=== PATIENT | female | born 1970 ===

== ENCOUNTER 2019-12-17 15:35 | Outpatient (REF) | payer MEDICARE, OTHER, SELFPAY ==
[2019-12-17 16:58] LABS: Hematocrit 44.9 % (37-47); Hemoglobin 15.1 g/dl (12.0-16.0); Mean Corpuscular HGB Conc 33.6 g/dl (31.0-35.0); Mean Corpuscular Hemoglobin 30.4 pg (27.0-33.0); Mean Corpuscular Volume 90.5 fL (80-98); Mean Platelet Volume 11.2 fL (9.4-12.3); Platelet Count 392 X10*3/uL (160-400); Red Blood Count 4.96 X10*6/uL (4.20-5.50); Red Cell Distribution Width 11.5 % (11.0-16.0); White Blood Count 9.2 X10*3/uL (4.8-10.8)
[2019-12-17 17:59] LABS: Thyroid Stimulating Hormone 0.83 mIU/mL (0.32-4.0)
[2019-12-17 18:42] LABS: Alanine Aminotransferase 74 U/L (0-31); Albumin Level 4.3 g/dL (3.5-5.0); Alkaline Phosphatase 108 U/L (39-117); Anion Gap 12 (12-20); Aspartate Amino Transferase 41 U/L (5-31); Bilirubin Direct < 0.2 mg/dL (0.0-0.5); Bilirubin Total 0.5 mg/dL (0.0-1.0); Blood Urea Nitrogen 13 mg/dL (9-16); Calcium 9.5 mg/dL (8.4-10.2); Carbon Dioxide 30 mmol/L (22-29); Chloride 98 mmol/L (96-108); Estimated Glomerular Filt Rate > 60; Glucose Random 382 mg/dL (60-115); Potassium 4.6 mmol/l (3.3-5.1); Sodium 135 mmol/L (135-145); Total Protein 7.4 g/dL (6.5-8.0)
== END 2019-12-17 15:36 | disposition home or self-care (01) ==
LOC: HO.LAB 15:35
PROVIDERS: PCP Internal Medicine; Visit Provider Internal Medicine
DX: K21.9 Gastro-esophageal reflux disease without esophagitis (principal)
CPT/HCPCS: 36415; 80048; 80076; 84443; 85027

== ENCOUNTER 2020-03-26 13:00 | Outpatient (RCR) | payer MEDICARE, MEDICAID, SELFPAY | END 2020-06-29 11:01 | disposition other institution (70) | LOC: HO.OT 13:00 | PROVIDERS: PCP Internal Medicine; Visit Provider Internal Medicine | DX: M79.642 Pain in left hand (principal) | CPT/HCPCS: 97014; 97035; 97110; 97140; 97166 ==

== ENCOUNTER 2020-07-20 14:50 | Outpatient (REF) | payer MEDICARE, MEDICAID, SELFPAY ==
[2020-07-20 17:03] LABS: Hemoglobin 15.9 g/dl (12.0-16.0); Mean Corpuscular HGB Conc 33.8 g/dl (31.0-35.0); Mean Corpuscular Hemoglobin 30.2 pg (27.0-33.0); Mean Corpuscular Volume 89.2 fL (80-98); Mean Platelet Volume 11.2 fL (9.4-12.3); Platelet Count 315 X10*3/uL (160-400); Red Blood Count 5.27 X10*6/uL (4.20-5.50); Red Cell Distribution Width 11.7 % (11.0-16.0); White Blood Count 9.8 X10*3/uL (4.8-10.8)
[2020-07-20 17:14] LABS: Estimated Average Glucose 346 mg/dL; Hemoglobin A1c % 13.7 %
[2020-07-20 17:32] LABS: TSH reflex Free T4 0.44 uIU/mL (0.32-4.0)
[2020-07-20 17:35] LABS: Alanine Aminotransferase 46 U/L (0-31); Albumin Level 4.2 g/dL (3.5-5.0); Alkaline Phosphatase 105 U/L (39-117); Anion Gap 13 (12-20); Aspartate Amino Transferase 37 U/L (5-31); Bilirubin Total 0.5 mg/dL (0.0-1.0); Blood Urea Nitrogen 11 mg/dL (9-16); C Reactive Protein 1.32 mg/dL (< or = 0.50); Carbon Dioxide 26 mmol/L (22-29); Chloride 98 mmol/L (96-108); Estimated Glomerular Filt Rate > 60; Lipase 62 U/L (8-78); Potassium 4.1 mmol/L (3.3-5.1); Sodium 133 mmol/L (135-145); Total Protein 7.3 g/dL (6.5-8.0)
[2020-07-20 18:08] LABS: Glucose Random 373 mg/dL (60-115)
[2020-07-25 12:56] LABS: Vitamin D 25-OH, D2 <4 ng/mL; Vitamin D 25-OH, D3 57 ng/mL; Vitamin D 25-OH, Total 57 ng/mL (30-100)
== END 2020-07-20 14:51 | disposition home or self-care (01) ==
LOC: HO.LAB 14:50
PROVIDERS: PCP Internal Medicine; Referring Provider Internal Medicine; Visit Provider Nurse Practitioner Family
DX: R19.7 Diarrhea, unspecified (principal); R14.0 Abdominal distension (gaseous); R10.13 Epigastric pain; E78.5 Hyperlipidemia, unspecified; K21.9 Gastro-esophageal reflux disease without esophagitis; M25.50 Pain in unspecified joint; E66.9 Obesity, unspecified; K59.00 Constipation, unspecified; E11.65 Type 2 diabetes mellitus with hyperglycemia; Z79.4 Long term (current) use of insulin; K75.81 Nonalcoholic steatohepatitis (NASH); Z12.11 Encounter for screening for malignant neoplasm of colon
CPT/HCPCS: 36415; 80053; 82306; 83036; 83690; 84443; 85027; 86140; 99202

== ENCOUNTER 2020-07-22 14:53 | Outpatient (REF) | payer MEDICARE, MEDICAID, SELFPAY | END 2020-07-22 14:54 | disposition home or self-care (01) | LOC: HO.LNP 14:53 | PROVIDERS: Visit Provider Nurse Practitioner Family | DX: K21.9 Gastro-esophageal reflux disease without esophagitis (principal) | CPT/HCPCS: 87338 ==

== ENCOUNTER 2020-08-04 08:18 | Outpatient (REF) | payer MEDICARE, MEDICAID, SELFPAY ==
--- NOTE | ~2020-08-04 | US_ITS ---
EXAMINATION: US ABDOMEN COMPLETE CLINICAL INFORMATION: Nonalcoholic steatohepatitis. COMPARISON: Ultrasound abdomen 05/22/2017. TECHNIQUE: Real-time imaging of the abdominal viscera. FINDINGS: PANCREAS: The head and the body of the pancreas are homogeneous in echotexture. The tail is obscured by overlying gas. ABDOMINAL AORTA: The proximal, mid, and distal segments are normal in caliber. INFERIOR VENA CAVA: Visualized portions are normal. LIVER: The liver is enlarged in size. The liver contour is normal. There is diffuse increased parenchymal echogenicity. No focal hepatic lesion. There is no intrahepatic biliary duct dilatation seen. GALLBLADDER: The gallbladder is contracted. COMMON BILE DUCT: Normal in caliber measuring 0.1 cm in diameter. RIGHT KIDNEY: Normal. No hydronephrosis. No renal calculi or focal parenchymal lesions. The kidney measures 12.8 cm in maximum dimension. LEFT KIDNEY: Normal. No hydronephrosis. No renal calculi or focal parenchymal lesions. The kidney measures 11.5 cm in maximum dimension. SPLEEN: Normal. The spleen measures 9.8 cm in maximum dimension. FREE FLUID: None. US/US abdomen complete IMPRESSION: Hepatic steatosis without focal lesion. Mild hepatomegaly. Contracted gallbladder with no echogenic stones seen. The rest of the abdominal ultrasound is unremarkable.
== END 2020-08-04 08:19 | disposition home or self-care (01) ==
LOC: HO.US 08:18
PROVIDERS: Visit Provider Nurse Practitioner Family
DX: K75.81 Nonalcoholic steatohepatitis (NASH) (principal)
CPT/HCPCS: 76700

== ENCOUNTER 2020-08-18 13:26 | Outpatient (REF) | payer MEDICARE, MEDICAID, SELFPAY ==
[2020-08-18 14:53] LABS: Prothrombin Time 10.9 SEC (9.9-13.0)
[2020-08-18 15:11] LABS: Gamma Glutamyl Transpeptidase 69 U/L (7-33)
[2020-08-18 15:32] LABS: Ferritin 213 ng/mL (10-250)
[2020-08-19 13:11] LABS: HIV AB/AG Nonreactive (Nonreactive); HIV Num 1 0.08 S/CO (0.00-0.99)
[2020-08-20 11:37] LABS: HBc Num1 0.07 S/CO (0.00-0.79); HBsAGNum1 0.17 S/CO (0.00-0.99); Hepatitis B Core Antibody Nonreactive (Nonreactive); Hepatitis B Surface Antigen Negative (Negative); ~HepC Num1 0.05 S/CO (0.00-0.79); ~Hepatitis C Antibody Nonreactive (Nonreactive)
[2020-08-20 12:52] LABS: Alpha Fetoprotein 1.6 ng/mL
[2020-08-20 15:46] LABS: Mitochondrial Antibodies NEGATIVE (NEGATIVE)
[2020-08-21 08:41] LABS: Hepatitis A Antibody IgM 0.75 Index (0-0.79); ~Hepatitis A Antibody IgM Nonreactive (Nonreactive); ~Hepatitis B Surface Antibody NONREACTIVE (Nonreactive)
[2020-08-21 18:06] LABS: Ceruloplasmin 25 mg/dL (18-53)
[2020-08-22 12:16] LABS: Smooth Muscle Antibody <20 U (<20)
[2020-08-22 19:32] LABS: FIB-ALT 55 U/L (6-29); FIB-Alpha-2-Macroglobulin 231 mg/dL (106-279); FIB-Apolipoprotein A1 152 mg/dL (101-198); FIB-GGT 54 U/L (3-70); FIB-Haptoglobin 193 mg/dL (43-212); FIB-Total Bilirubin 0.3 mg/dL (0.2-1.2); Liver Fibrosis Score 0.16; Liver Fibrosis Stage F0; Nec Inflam Act Grade A0-A1; Nec Inflam Act Score 0.28
== END 2020-08-18 13:27 | disposition home or self-care (01) ==
LOC: HO.LAB 13:26
PROVIDERS: PCP Internal Medicine; Referring Provider Internal Medicine; Visit Provider Nurse Practitioner Family
DX: K21.9 Gastro-esophageal reflux disease without esophagitis (principal); R14.0 Abdominal distension (gaseous); K75.81 Nonalcoholic steatohepatitis (NASH); K59.00 Constipation, unspecified; R79.89 Other specified abnormal findings of blood chemistry; R74.8 Abnormal levels of other serum enzymes; E78.00 Pure hypercholesterolemia, unspecified; E66.9 Obesity, unspecified; F41.8 Other specified anxiety disorders; Z68.32 Body mass index [BMI] 32.0-32.9, adult; Z88.8 Allergy status to other drugs, medicaments and biological substances; J30.81 Allergic rhinitis due to animal (cat) (dog) hair and dander; J30.1 Allergic rhinitis due to pollen
CPT/HCPCS: 36415; 81596; 82105; 82390; 82728; 82977; 85610; 86255; 86256; 86704; 86706; 86709; 86803; 87340; 87389; 99212

== ENCOUNTER → 2020-08-20 12:49 | Outpatient (REF) | payer MEDICARE, MEDICAID, SELFPAY | LOC: HO.SL 12:49 | PROVIDERS: PCP Internal Medicine; Visit Provider Internal Medicine | DX: G47.10 Hypersomnia, unspecified (principal) | CPT/HCPCS: 95806 ==

== ENCOUNTER 2020-09-22 08:08 | Outpatient (REF) | payer MEDICARE, MEDICAID, SELFPAY ==
[2020-09-22 10:14] LABS: Blood Urea Nitrogen 9 mg/dL (9-16); Estimated Glomerular Filt Rate > 60
== END 2020-09-22 08:09 | disposition home or self-care (01) ==
LOC: HO.LAB 08:08
PROVIDERS: PCP Internal Medicine; Referring Provider Internal Medicine; Visit Provider Nurse Practitioner Family
DX: K59.01 Slow transit constipation (principal); R10.9 Unspecified abdominal pain; K21.9 Gastro-esophageal reflux disease without esophagitis
CPT/HCPCS: 36415; 82565; 84520; 99212

== ENCOUNTER → 2020-09-25 10:37 | Outpatient (BNVA) | payer MEDICARE, MEDICAID, SELFPAY | PROVIDERS: PCP Internal Medicine; Visit Provider Internal Medicine Pulmonary Disease | DX: G47.33 Obstructive sleep apnea (adult) (pediatric) (principal) | CPT/HCPCS: 99202 ==

== ENCOUNTER → 2020-09-29 09:52 | Outpatient (BNVA) | payer MEDICARE, MEDICAID, SELFPAY | PROVIDERS: PCP Internal Medicine; Visit Provider Dietitian, Registered | DX: E11.65 Type 2 diabetes mellitus with hyperglycemia (principal); Z79.4 Long term (current) use of insulin; Z71.3 Dietary counseling and surveillance | CPT/HCPCS: 97802 ==

== ENCOUNTER → 2020-10-05 10:12 | Outpatient (REF) | payer MEDICARE, MEDICAID, SELFPAY ==
--- NOTE | 2020-10-05 10:16 | ECG_ITS ---
Test Reason : PREOP Blood Pressure : / mmHG Vent. Rate : 079 BPM Atrial Rate : 079 BPM P-R Int : 144 ms QRS Dur : 078 ms QT Int : 390 ms P-R-T Axes : 051 -10 041 degrees QTc Int : 447 ms Normal sinus rhythm Possible Left atrial enlargement Borderline ECG No previous ECGs available Referred By: Tammy Swanson Electronically Signed By:DM DOHERTY
[2020-10-05 11:49] LABS: Basophils Percent Auto 0.4 % (0-2); Eosinophils Absolute Auto 0.3 X10*3/uL (0.0-0.4); Eosinophils Percent Auto 3.2 % (0-4); Hematocrit 47.3 % (37-47); Hemoglobin 15.6 g/dl (12.0-16.0); Imm Gran Abs Auto 0.03 X10*3/uL (0.00-0.03); Imm Gran Pct Auto 0.4 % (0.0-0.4); Lymphocytes Absolute Auto 2.7 X10*3/uL (1.2-4.9); Lymphocytes Percent Auto 31.5 % (20-40); MANUAL DIFF FLAG SCAN; Mean Corpuscular Hemoglobin 30.1 pg (27.0-33.0); Mean Corpuscular Volume 91.3 fL (80-98); Monocytes Absolute Auto 0.4 X10*3/uL (0.1-1.2); Monocytes Percent Auto 4.9 % (2-11); Neutrophils Absolute Auto 5.1 X10*3/uL (2.0-8.3); Neutrophils Percent Auto 59.6 % (45-73); PLT CLUMP 1; Red Blood Count 5.18 X10*6/uL (4.20-5.50); Red Cell Distribution Width 12.6 % (11.0-16.0); SCAN SMEAR FLAG 1; White Blood Count 8.5 X10*3/uL (4.8-10.8)
[2020-10-05 11:50] LABS: Platelet Count 209 X10*3/uL (160-400)
[2020-10-05 12:05] LABS: Alanine Aminotransferase 81 U/L (0-31); Albumin Level 4.5 g/dL (3.5-5.0); Alkaline Phosphatase 120 U/L (39-117); Anion Gap 13 (12-20); Aspartate Amino Transferase 44 U/L (5-31); Bilirubin Total 0.6 mg/dL (0.0-1.0); Blood Urea Nitrogen 9 mg/dL (9-16); Calcium 9.7 mg/dL (8.4-10.2); Carbon Dioxide 27 mmol/L (22-29); Chloride 100 mmol/L (96-108); Cholesterol 193 mg/dL; Estimated Glomerular Filt Rate > 60; Glucose Fasting 203 mg/dL (60-99); HDL Cholesterol 43 mg/dL; LDL Cholesterol Calculated 104 mg/dl; Potassium 5.2 mmol/L (3.3-5.1); Sodium 135 mmol/L (135-145); Total Protein 7.8 g/dL (6.5-8.0); Triglycerides 233 mg/dL
[2020-10-05 12:17] LABS: SLIDE REVIEW VERIFIED
[2020-10-05 12:34] LABS: Creatinine Urine 198.53 mg/dL; Microalbum/Creatinine Ratio Ur 24.6 ug/mg cr
[2020-10-06 11:01] LABS: Follicle Stimulating Hormone 18.4 mIU/mL; Lutenizing Hormone 23.8 mIU/mL
[2020-10-09 12:48] LABS: Vitamin D 25-OH, D2 <4 ng/mL; Vitamin D 25-OH, D3 67 ng/mL; Vitamin D 25-OH, Total 67 ng/mL (30-100)
== END ==
LOC: HO.CARD 10:12
PROVIDERS: Internal Medicine; PCP Internal Medicine; Visit Provider Internal Medicine
DX: Z01.818 Encounter for other preprocedural examination (principal); R23.2 Flushing; E11.65 Type 2 diabetes mellitus with hyperglycemia; E78.5 Hyperlipidemia, unspecified; E55.9 Vitamin D deficiency, unspecified; D64.9 Anemia, unspecified; Z79.4 Long term (current) use of insulin
CPT/HCPCS: 36415; 80053; 80061; 82043; 82306; 83001; 83002; 85025; 93005

== ENCOUNTER 2020-10-07 07:58 | Outpatient (REF) | payer MEDICARE, MEDICAID, SELFPAY ==
[2020-10-08 05:46] LABS: CT PCR NOT DETECTED (Not Detect.); NG PCR NOT DETECTED (Not Detect.)
[2020-10-08 08:58] LABS: BV Int Neg Control Negative (Negative); BV Int Pos Control Positive (Positive)
== END 2020-10-07 07:59 | disposition home or self-care (01) ==
LOC: HO.LAB 07:58
PROVIDERS: PCP Internal Medicine; Visit Provider Advanced Practice Midwife
DX: Z11.3 Encounter for screening for infections with a predominantly sexual mode of transmission (principal); N76.0 Acute vaginitis; Z20.2 Contact with and (suspected) exposure to infections with a predominantly sexual mode of transmission
CPT/HCPCS: 87480; 87491; 87510; 87591; 87660; 99212

== ENCOUNTER → 2020-10-27 10:26 | Outpatient (BNVA) | payer MEDICARE, MEDICAID, SELFPAY | PROVIDERS: PCP Internal Medicine; Visit Provider Dietitian, Registered | DX: E11.65 Type 2 diabetes mellitus with hyperglycemia (principal); Z79.4 Long term (current) use of insulin | CPT/HCPCS: 97803 ==

== ENCOUNTER 2020-11-02 12:22 | Outpatient (REF) | payer MEDICARE, MEDICAID, SELFPAY ==
--- NOTE | ~2020-11-02 | CT_ITS ---
EXAMINATION: CT ABDOMEN AND PELVIS WITH CONTRAST CLINICAL INFORMATION: Abdominal pain. COMPARISON: None. TECHNIQUE: Multidetector volumetric images were obtained from the superior aspect of the liver through the pubic symphysis following administration 85 mL of Omnipaque 350 intravenous and 450 mL oral contrast. Sagittal and coronal reformatted images were obtained on the technologist's workstation. Oral contrast: No This CT examination was performed using dose optimization techniques as appropriate, variously including the following: *Automated exposure control *Adjustment of mA and/or kV according to patient size (this includes techniques or standardized protocols for targeted exams where dose is matched to indication/reason for exam; i.e. extremities or head) *Use of iterative reconstruction technique DLP: 440 mGy-cm. FINDINGS: LUNG BASES: The visualized lung bases are unremarkable. LIVER, GALLBLADDER, AND BILIARY TREE: The liver is normal in size, shape, and diffusely attenuated. No focal hepatic lesion or biliary ductal dilatation is present. The gallbladder is unremarkable with no evidence of radiopaque gallstones, gallbladder wall thickening, or obvious pericholecystic inflammatory changes. PANCREAS: Unremarkable. SPLEEN: Unremarkable. ADRENAL GLANDS: Unremarkable. KIDNEYS AND URETERS: The kidneys are normal in size, shape, and attenuation. No hydronephrosis, hydroureter, or calculi seen. No perinephric stranding. BLADDER: Unremarkable. GASTROINTESTINAL TRACT: There is scattered moderate stool and gas seen throughout the colon without any significant distention. The cecum lies within the pelvis. The appendix is normal caliber. No free air or free fluid seen. ABDOMINAL WALL: No significant hernia is appreciated. LYMPH NODES: Normal. VASCULAR: Unremarkable. PELVIC VISCERA: There is a small hypodense 3 cm cyst right adnexa. OSSEOUS STRUCTURES: No lytic or sclerotic process seen. CT/CT abdomen pelvis w con IMPRESSION: Moderate constipation. No obstruction seen. Mild hepatic steatosis without focal lesion. Right adnexal cyst.
[2020-11-02] MEDS: iohexoL 350 MG/ML 100 ML INFUS..BTL IV (14:55)
[2020-11-02] MEDS: Barium Sulfate Oral (Berry) 450 ML ORAL.SUSP 900 ML PO (14:56)
== END 2020-11-02 12:23 | disposition home or self-care (01) ==
LOC: HO.CT 12:22
PROVIDERS: Visit Provider Nurse Practitioner Family
DX: R10.9 Unspecified abdominal pain (principal)
CPT/HCPCS: 74177; Q9967

== ENCOUNTER → 2020-11-25 10:08 | Outpatient (BNVA) | payer MEDICARE, MEDICAID, SELFPAY | PROVIDERS: PCP Internal Medicine; Visit Provider Dietitian, Registered | DX: E11.65 Type 2 diabetes mellitus with hyperglycemia (principal); Z79.4 Long term (current) use of insulin | CPT/HCPCS: 97803 ==

== ENCOUNTER → 2020-12-23 09:12 | Outpatient (BNVA) | payer MEDICARE, MEDICAID, SELFPAY | PROVIDERS: PCP Internal Medicine; Visit Provider Dietitian, Registered | DX: E11.65 Type 2 diabetes mellitus with hyperglycemia (principal); E78.00 Pure hypercholesterolemia, unspecified; E66.9 Obesity, unspecified; F41.8 Other specified anxiety disorders; F33.0 Major depressive disorder, recurrent, mild; Z83.3 Family history of diabetes mellitus; Z82.49 Family history of ischemic heart disease and other diseases of the circulatory system; Z88.8 Allergy status to other drugs, medicaments and biological substances; J30.81 Allergic rhinitis due to animal (cat) (dog) hair and dander; Z91.09 Other allergy status, other than to drugs and biological substances; Z79.4 Long term (current) use of insulin; Z71.3 Dietary counseling and surveillance | CPT/HCPCS: 97803 ==

== ENCOUNTER → 2021-01-29 13:41 | Outpatient (BNVA) | payer MEDICARE, MEDICAID, SELFPAY | PROVIDERS: PCP Internal Medicine; Visit Provider Nurse Practitioner Gerontology | DX: E11.65 Type 2 diabetes mellitus with hyperglycemia (principal); E78.00 Pure hypercholesterolemia, unspecified; E66.09 Other obesity due to excess calories; Z79.4 Long term (current) use of insulin; Z68.32 Body mass index [BMI] 32.0-32.9, adult | CPT/HCPCS: 82947; 99212 ==

== ENCOUNTER → 2021-02-17 08:27 | Outpatient (BNVA) | payer MEDICARE, MEDICAID, SELFPAY | PROVIDERS: PCP Internal Medicine; Visit Provider Nurse Practitioner Gerontology | DX: Z13.89 Encounter for screening for other disorder (principal) | CPT/HCPCS: 99212 ==

== ENCOUNTER → 2021-04-06 10:09 | Outpatient (BNVA) | payer MEDICARE, MEDICAID, SELFPAY | PROVIDERS: PCP Internal Medicine; Visit Provider Dietitian, Registered | DX: E11.65 Type 2 diabetes mellitus with hyperglycemia (principal); Z79.4 Long term (current) use of insulin | CPT/HCPCS: 97803 ==

== ENCOUNTER → 2021-04-28 09:29 | Outpatient (BNVA) | payer MEDICARE, MEDICAID, SELFPAY | PROVIDERS: PCP Internal Medicine; Visit Provider Internal Medicine Pulmonary Disease | DX: G47.33 Obstructive sleep apnea (adult) (pediatric) (principal); R06.00 Dyspnea, unspecified | CPT/HCPCS: 99212 ==

== ENCOUNTER → 2021-05-10 08:18 | Outpatient (BNVA) | payer MEDICARE, MEDICAID, SELFPAY | PROVIDERS: PCP Internal Medicine | DX: N39.41 Urge incontinence (principal); N39.490 Overflow incontinence | CPT/HCPCS: 51798; 99202 ==

== ENCOUNTER → 2021-05-17 08:50 | Outpatient (BNVA) | payer MEDICARE, MEDICAID, SELFPAY | PROVIDERS: PCP Internal Medicine; Visit Provider Nurse Practitioner Gerontology | DX: E11.65 Type 2 diabetes mellitus with hyperglycemia (principal); E78.00 Pure hypercholesterolemia, unspecified; E04.9 Nontoxic goiter, unspecified; E66.09 Other obesity due to excess calories; Z79.4 Long term (current) use of insulin; Z79.84 Long term (current) use of oral hypoglycemic drugs; Z68.32 Body mass index [BMI] 32.0-32.9, adult | CPT/HCPCS: 82947; 83036; 96372; 99212; J1815 ==

== ENCOUNTER → 2021-05-19 11:36 | Outpatient (BNVA) | payer MEDICARE, MEDICAID, SELFPAY | PROVIDERS: PCP Internal Medicine; Visit Provider Dietitian, Registered | DX: Z13.89 Encounter for screening for other disorder (principal) | CPT/HCPCS: 97803 ==

== ENCOUNTER 2021-05-27 10:27 | Outpatient (REF) | payer MEDICARE, MEDICAID, SELFPAY ==
[2021-05-27 11:33] LABS: Estimated Average Glucose 260 mg/dL; Hemoglobin A1c % 10.7 %
[2021-05-27 12:12] LABS: Thyroid Stimulating Hormone 0.91 uIU/mL (0.32-4.0)
[2021-05-29 01:46] LABS: Thyroglobulin Antibodies <1 IU/mL (< or = 1); Thyroid Peroxidase Antibodies 2 IU/mL (<9)
[2021-06-02 15:27] LABS: Thyroid Stimulating Immunoglob <89 % baseline (<140)
== END 2021-05-27 10:28 | disposition home or self-care (01) ==
LOC: HO.LAB 10:27
PROVIDERS: Absent Provider Internal Medicine; PCP Internal Medicine; Visit Provider Nurse Practitioner Gerontology
DX: E11.40 Type 2 diabetes mellitus with diabetic neuropathy, unspecified (principal); E11.65 Type 2 diabetes mellitus with hyperglycemia; E04.9 Nontoxic goiter, unspecified; Z79.4 Long term (current) use of insulin
CPT/HCPCS: 36415; 83036; 84443; 84445; 86376; 86800

== ENCOUNTER → 2021-06-01 09:17 | Outpatient (BNVA) | payer MEDICARE, MEDICAID, SELFPAY | PROVIDERS: PCP Internal Medicine; Visit Provider Registered Nurse Diabetes Educator | DX: E11.65 Type 2 diabetes mellitus with hyperglycemia (principal); Z79.4 Long term (current) use of insulin | CPT/HCPCS: 99211 ==

== ENCOUNTER 2021-06-02 15:29 | Outpatient (REF) | payer MEDICARE, MEDICAID, SELFPAY ==
[2021-06-03 01:50] LABS: CT PCR NOT DETECTED (Not Detect.); NG PCR NOT DETECTED (Not Detect.)
[2021-06-03 11:11] LABS: BV Int Neg Control Negative (Negative); BV Int Pos Control Positive (Positive)
[2021-06-05 02:06] LABS: HPV mRNA E6/E7 rflx Not Detected (Not Detected)
== END 2021-06-02 15:30 | disposition home or self-care (01) ==
LOC: HO.LAB 15:29
PROVIDERS: PCP Internal Medicine; Visit Provider Obstetrics & Gynecology
DX: Z01.419 Encounter for gynecological examination (general) (routine) without abnormal findings (principal); Z11.51 Encounter for screening for human papillomavirus (HPV); Z20.2 Contact with and (suspected) exposure to infections with a predominantly sexual mode of transmission; E66.09 Other obesity due to excess calories
CPT/HCPCS: 87480; 87491; 87510; 87591; 87624; 87660; 88142

== ENCOUNTER 2021-06-07 09:13 | Outpatient (REF) | payer MEDICARE, MEDICAID, SELFPAY ==
--- NOTE | 2021-06-07 16:58 | PFT_ITS ---
INDICATION: Dyspnea. SPIROMETRY: FEV1 to FVC of 93% with an FEV1 of 2.23 L, which is 88% predicted. FVC of 2.41 L, which is 76% predicted. No significant response to bronchodilators noted. Maximum voluntary ventilation 88% predicted. LUNG VOLUMES: Total lung capacity 79% predicted with an expiratory reserve volume of 38% predicted secondary to an elevated BMI. DIFFUSION CAPACITY: DLCO 88% predicted. COMPARISONS: None. INTERPRETATION: No obstructive ventilatory defects appreciated. No significant response to bronchodilators noted. Normal maximum voluntary ventilation. The patient did have a restrictive ventilatory defect consistent with mild restrictive lung disease, and to some degree, could be the result of an elevated BMI. Although interstitial lung conditions cannot be ruled out. The patient has a normal diffusion capacity. Clinical correlation warranted. MD TAYLOR Figueroa/MODL / [id number]
== END 2021-06-07 09:14 | disposition home or self-care (01) ==
LOC: HO.RESP 09:13
PROVIDERS: PCP Internal Medicine; Visit Provider Internal Medicine Pulmonary Disease
DX: R06.00 Dyspnea, unspecified (principal)
CPT/HCPCS: 94060; 94727; 94729

== ENCOUNTER → 2021-06-17 11:16 | Outpatient (BNVA) | payer MEDICARE, MEDICAID, SELFPAY | PROVIDERS: PCP Internal Medicine; Visit Provider Dietitian, Registered | DX: E11.65 Type 2 diabetes mellitus with hyperglycemia (principal); Z79.4 Long term (current) use of insulin | CPT/HCPCS: 97803 ==

== ENCOUNTER → 2021-07-01 08:39 | Outpatient (BNVA) | payer MEDICARE, MEDICAID, SELFPAY | PROVIDERS: PCP Internal Medicine; Visit Provider Nurse Practitioner Gerontology | DX: E11.65 Type 2 diabetes mellitus with hyperglycemia (principal); E78.00 Pure hypercholesterolemia, unspecified; E66.09 Other obesity due to excess calories; E04.9 Nontoxic goiter, unspecified; Z79.4 Long term (current) use of insulin; Z68.33 Body mass index [BMI] 33.0-33.9, adult | CPT/HCPCS: 82947; 99212 ==

== ENCOUNTER → 2021-07-15 09:24 | Outpatient (BNVA) | payer MEDICARE, MEDICAID, SELFPAY | PROVIDERS: PCP Internal Medicine; Visit Provider Internal Medicine Pulmonary Disease | DX: G47.33 Obstructive sleep apnea (adult) (pediatric) (principal); R94.2 Abnormal results of pulmonary function studies; Z99.89 Dependence on other enabling machines and devices | CPT/HCPCS: 99212 ==

== ENCOUNTER → 2021-07-22 12:23 | Outpatient (BNVA) | payer MEDICARE, MEDICAID, SELFPAY | PROVIDERS: PCP Internal Medicine; Visit Provider Dietitian, Registered | DX: E11.65 Type 2 diabetes mellitus with hyperglycemia (principal); Z79.4 Long term (current) use of insulin | CPT/HCPCS: 97803 ==

== ENCOUNTER 2021-07-30 14:54 | Outpatient (REF) | payer MEDICARE, MEDICAID, SELFPAY ==
[2021-07-30 16:11] LABS: Alanine Aminotransferase 33 U/L (0-31); Albumin Level 4.2 g/dL (3.5-5.0); Alkaline Phosphatase 98 U/L (39-117); Amylase 47 U/L (28-100); Aspartate Amino Transferase 21 U/L (5-31); Bilirubin Direct < 0.2 mg/dL (0.0-0.5); Bilirubin Total 0.3 mg/dL (0.0-1.0); Lipase 38 U/L (8-78); Total Protein 7.3 g/dL (6.5-8.0)
[2021-08-04 16:26] LABS: Vitamin D 25-OH, D2 <4 ng/mL; Vitamin D 25-OH, D3 59 ng/mL; Vitamin D 25-OH, Total 59 ng/mL (30-100)
== END 2021-07-30 14:55 | disposition home or self-care (01) ==
LOC: HO.LAB 14:54
PROVIDERS: PCP Internal Medicine; Visit Provider Nurse Practitioner Family
DX: R10.9 Unspecified abdominal pain (principal); K21.9 Gastro-esophageal reflux disease without esophagitis; K59.04 Chronic idiopathic constipation; R14.0 Abdominal distension (gaseous); E55.9 Vitamin D deficiency, unspecified
CPT/HCPCS: 36415; 80076; 82150; 82306; 83690; 99212

== ENCOUNTER → 2021-08-12 13:36 | Outpatient (BNVA) | payer MEDICARE, MEDICAID, SELFPAY | PROVIDERS: PCP Internal Medicine | DX: N39.490 Overflow incontinence (principal) | CPT/HCPCS: 51798; 99212 ==

== ENCOUNTER 2021-09-08 08:17 | Outpatient (REF) | payer MEDICARE, MEDICAID, SELFPAY ==
[2021-09-08 09:25] LABS: Alanine Aminotransferase 55 U/L (0-31); Albumin Level 4.3 g/dL (3.5-5.0); Alkaline Phosphatase 90 U/L (39-117); Anion Gap 11 (12-20); Aspartate Amino Transferase 35 U/L (5-31); Bilirubin Total 0.4 mg/dL (0.0-1.0); Blood Urea Nitrogen 8 mg/dL (9-16); Calcium 9.1 mg/dL (8.4-10.2); Carbon Dioxide 26 mmol/L (22-29); Chloride 102 mmol/L (96-108); Cholesterol 189 mg/dL; Estimated Glomerular Filt Rate > 60; Glucose Fasting 301 mg/dL (60-99); HDL Cholesterol 34 mg/dL; LDL Cholesterol Calculated 108 mg/dl; Potassium 4.6 mmol/L (3.3-5.1); Sodium 134 mmol/L (135-145); Total Protein 7.4 g/dL (6.5-8.0); Triglycerides 235 mg/dL
[2021-09-08 09:49] LABS: Vitamin D 25-OH Total 72.9 ng/mL (>30)
[2021-09-08 12:15] LABS: Creatinine Urine 148.98 mg/dL; Microalbum/Creatinine Ratio Ur 18.7 ug/mg cr
== END 2021-09-08 08:18 | disposition home or self-care (01) ==
LOC: HO.LAB 08:17
PROVIDERS: PCP Internal Medicine; Visit Provider Internal Medicine
DX: E11.65 Type 2 diabetes mellitus with hyperglycemia (principal); M54.50 Low back pain, unspecified; E78.5 Hyperlipidemia, unspecified; E55.9 Vitamin D deficiency, unspecified; Z79.4 Long term (current) use of insulin
CPT/HCPCS: 36415; 80053; 80061; 82043; 82306

== ENCOUNTER → 2021-09-30 11:30 | Outpatient (BNVA) | payer MEDICARE, MEDICAID, SELFPAY | PROVIDERS: PCP Internal Medicine; Visit Provider Dietitian, Registered | DX: E11.65 Type 2 diabetes mellitus with hyperglycemia (principal); Z79.4 Long term (current) use of insulin; Z71.3 Dietary counseling and surveillance | CPT/HCPCS: 97803 ==

== ENCOUNTER 2021-11-04 11:23 | Outpatient (REF) | payer MEDICARE, MEDICAID, SELFPAY ==
--- NOTE | ~2021-11-04 | US_ITS ---
EXAMINATION: US THYROID CLINICAL INFORMATION: Nontoxic goiter, unspecified. COMPARISON: Ultrasound thyroid 06/25/2018. TECHNIQUE: Linear transducer grayscale and color Doppler examination with attention to the region of the thyroid. FINDINGS: SIZE: Measurements of the thyroid lobes and nodules are given in sagittal, anteroposterior and transverse dimensions respectively. Right Thyroid Lobe: 5.9 x 1.4 x 1.5 cm, volume 6.2 mL. Previously 5.2 x 1.6 x 1.5 cm, volume 6.5 mL. Parenchyma: The gland echotexture is homogeneous. Thyroid vascularity is normal. Left Thyroid Lobe: 4.7 x 1.8 x 1.4 cm, volume 6.2 mL. Previously 4.2 x 1.3 x 1.4 cm, volume 4.0 mL. Parenchyma: The gland echotexture is homogeneous. Thyroid vascularity is normal. Isthmus: 0.2 cm in maximum AP dimension. Previously 0.3 cm. Estimated total number of nodules greater than or equal to 1 cm: 0. Adolescent Psychiatrist nodules are described as follows: 1. Location: Right inferior. Size: 0.6 x 0.6 x 0.4 cm, volume 0.07 mL. Previously: New since the previous study. Nodule characteristics: Composition: Solid (2). Echogenicity: Isoechoic (1). Shape: Not taller than wide (0). Margins: Smooth (0). Echogenic Foci: None (0). ACR TI-RADS total points: 3 ACR TI-RADS category: 3 NODES: No lymphadenopathy is seen in the tissue surrounding the thyroid gland. US/US thyroid IMPRESSION: A right thyroid lobe nodule is noted, as detailed. ACR TI-RADS RECOMMENDATION REFERENCE: Ultrasound-guided fine-needle aspiration, followup ultrasound, no further follow up. * TR1 (0 point) and TR 2 (2 points): No FNA or follow up. * TR3 (3 points): FNA if more than or equal to 2.5 cm in maximum dimension, followup ultrasound in 1, 3 and 5 years if 1.5 to 2.4 cm in maximum dimension. * TR4 (4-6 points): FNA if more than or equal to 1.5 cm in maximum dimension, followup ultrasound in 1, 2, 3 and 5 years if 1 to 1.4 cm in maximum dimension. * TR5 (more than or equal to 7 points): FNA if more than or equal to 1 cm in maximum dimension, followup ultrasound every year for 5 years if 0.5 to 0.9 cm in maximum dimension. * TR3, TR4 or TR5 nodules that are below the size threshold for followup receive no follow up.
== END 2021-11-04 11:24 | disposition home or self-care (01) ==
LOC: HO.US 11:23
PROVIDERS: Visit Provider Internal Medicine
DX: E04.9 Nontoxic goiter, unspecified (principal)
CPT/HCPCS: 76536

== ENCOUNTER 2021-11-08 15:29 | Outpatient (REF) | payer MEDICARE, MEDICAID, SELFPAY ==
[2021-11-08 16:53] LABS: Alanine Aminotransferase 48 U/L (0-31); Albumin Level 4.2 g/dL (3.5-5.0); Alkaline Phosphatase 108 U/L (39-117); Aspartate Amino Transferase 31 U/L (5-31); Bilirubin Direct < 0.2 mg/dL (0.0-0.5); Bilirubin Total 0.3 mg/dL (0.0-1.0); Total Protein 7.7 g/dL (6.5-8.0)
[2021-11-08 17:13] LABS: Vitamin D 25-OH Total 65.7 ng/mL (>30)
[2021-11-08 18:03] LABS: Creatinine Urine 52.67 mg/dL; Microalbum/Creatinine Ratio Ur 20.8 ug/mg cr
[2021-11-12 14:41] LABS: Vitamin D 25-OH, D2 <4 ng/mL; Vitamin D 25-OH, D3 54 ng/mL; Vitamin D 25-OH, Total 54 ng/mL (30-100)
== END 2021-11-08 15:30 | disposition home or self-care (01) ==
LOC: HO.LAB 15:29
PROVIDERS: PCP Internal Medicine; Visit Provider Nurse Practitioner Family
DX: K21.9 Gastro-esophageal reflux disease without esophagitis (principal); K58.1 Irritable bowel syndrome with constipation; K59.04 Chronic idiopathic constipation; R10.9 Unspecified abdominal pain; E55.9 Vitamin D deficiency, unspecified; E11.9 Type 2 diabetes mellitus without complications; E78.5 Hyperlipidemia, unspecified; Z79.4 Long term (current) use of insulin
CPT/HCPCS: 36415; 80076; 82043; 82306; 99212

== ENCOUNTER 2021-12-07 14:56 | Outpatient (REF) | payer MEDICARE, MEDICAID, SELFPAY ==
[2021-12-07 16:49] LABS: Lipase 101 U/L (8-78)
== END 2021-12-07 14:57 | disposition home or self-care (01) ==
LOC: HO.LAB 14:56
PROVIDERS: PCP Internal Medicine; Visit Provider Nurse Practitioner Family
DX: K21.9 Gastro-esophageal reflux disease without esophagitis (principal); K58.1 Irritable bowel syndrome with constipation; K59.04 Chronic idiopathic constipation; R10.9 Unspecified abdominal pain
CPT/HCPCS: 36415; 83690; 99212

== ENCOUNTER → 2021-12-30 14:46 | Outpatient (BNVA) | payer MEDICARE, MEDICAID, SELFPAY | PROVIDERS: PCP Internal Medicine; Visit Provider Dietitian, Registered | DX: E11.65 Type 2 diabetes mellitus with hyperglycemia (principal); Z79.4 Long term (current) use of insulin | CPT/HCPCS: 97803 ==

== ENCOUNTER → 2022-01-05 13:32 | Outpatient (BNVA) | payer MEDICARE, MEDICAID, SELFPAY | PROVIDERS: PCP Internal Medicine; Visit Provider Nurse Practitioner Family | DX: K21.9 Gastro-esophageal reflux disease without esophagitis (principal); K59.04 Chronic idiopathic constipation | CPT/HCPCS: 99212 ==

== ENCOUNTER 2022-02-22 10:21 | Outpatient (REF) | payer MEDICARE, MEDICAID, SELFPAY ==
[2022-03-02 18:13] LABS: Pancreatic Elastase-1 >500 mcg/g
== END 2022-02-22 10:22 | disposition home or self-care (01) ==
LOC: HO.LNP 10:21
PROVIDERS: Visit Provider Nurse Practitioner Family
DX: R10.9 Unspecified abdominal pain (principal)
CPT/HCPCS: 82656

== ENCOUNTER 2022-03-14 10:43 | Outpatient (REF) | payer MEDICARE, MEDICAID, SELFPAY | END 2022-03-14 10:44 | disposition home or self-care (01) | LOC: HO.LAB 10:43 | PROVIDERS: PCP Internal Medicine; Visit Provider Obstetrics & Gynecology | DX: N89.8 Other specified noninflammatory disorders of vagina (principal) | CPT/HCPCS: 0353U; 87480; 87510; 87660; 99212 ==

== ENCOUNTER 2022-03-14 11:11 | Outpatient (REF) | payer MEDICARE, MEDICAID, SELFPAY ==
[2022-03-14 18:14] LABS: CT PCR NOT DETECTED (Not Detect.); NG PCR NOT DETECTED (Not Detect.)
[2022-03-15 13:02] LABS: BV Int Neg Control Negative (Negative); BV Int Pos Control Positive (Positive)
== END 2022-03-14 11:12 | disposition home or self-care (01) ==
LOC: HO.LNP 11:11
PROVIDERS: Visit Provider Advanced Practice Midwife
DX: Z13.89 Encounter for screening for other disorder (principal)
CPT/HCPCS: 0353U; 87480; 87510; 87660

== ENCOUNTER → 2022-04-08 08:36 | Outpatient (BNVA) | payer MEDICARE, MEDICAID, SELFPAY | PROVIDERS: PCP Internal Medicine; Visit Provider Internal Medicine Endocrinology, Diabetes & Metabolism | DX: E04.1 Nontoxic single thyroid nodule (principal); E11.9 Type 2 diabetes mellitus without complications | CPT/HCPCS: 99212 ==

== ENCOUNTER → 2022-04-22 14:52 | Outpatient (BNVA) | payer MEDICARE, MEDICAID, SELFPAY | PROVIDERS: PCP Internal Medicine; Visit Provider Internal Medicine Pulmonary Disease | DX: G47.33 Obstructive sleep apnea (adult) (pediatric) (principal) | CPT/HCPCS: 99212 ==

== ENCOUNTER → 2022-05-04 11:34 | Outpatient (BNVA) | payer MEDICARE, MEDICAID, SELFPAY | PROVIDERS: PCP Internal Medicine; Visit Provider Dietitian, Registered | DX: E11.65 Type 2 diabetes mellitus with hyperglycemia (principal); Z79.4 Long term (current) use of insulin | CPT/HCPCS: 97803 ==

== ENCOUNTER → 2022-06-27 15:50 | Outpatient (BNVA) | payer OTHER, SELFPAY | PROVIDERS: PCP Internal Medicine; Visit Provider Nurse Practitioner Family | DX: K21.9 Gastro-esophageal reflux disease without esophagitis (principal); K59.04 Chronic idiopathic constipation; R10.11 Right upper quadrant pain; R14.0 Abdominal distension (gaseous); E66.09 Other obesity due to excess calories; E11.9 Type 2 diabetes mellitus without complications; E78.00 Pure hypercholesterolemia, unspecified; Z68.33 Body mass index [BMI] 33.0-33.9, adult; Z79.4 Long term (current) use of insulin | CPT/HCPCS: 99212 ==

== ENCOUNTER → 2022-07-05 14:20 | Outpatient (BNVA) | payer OTHER, SELFPAY | PROVIDERS: PCP Internal Medicine; Visit Provider Nurse Practitioner Family | DX: N32.81 Overactive bladder (principal) | CPT/HCPCS: 51798; 99212 ==

== ENCOUNTER 2022-08-20 08:23 | Outpatient (REF) | payer OTHER, SELFPAY | END 2022-08-20 08:24 | disposition home or self-care (01) | LOC: HO.LAB 08:23 | PROVIDERS: Absent Provider Nurse Practitioner Family; PCP Internal Medicine; Visit Provider Internal Medicine | DX: E11.65 Type 2 diabetes mellitus with hyperglycemia (principal); E78.5 Hyperlipidemia, unspecified; Z79.4 Long term (current) use of insulin | CPT/HCPCS: 36415; 80053; 80061; 82043 ==

== ENCOUNTER 2022-08-31 10:59 | Outpatient (AMB) | payer OTHER, SELFPAY ==
--- NOTE | 2022-08-31 11:16 | A.OFFPC_ITS ---
Vital Signs 08/31/22 11:17 Height 5 ft 2 in Weight 174 lb BMI 31.8 BP 122/80 Blood Pressure Location Lt brachial Position Sitting Pulse 95 Pulse Source Pulse Oximeter Pulse Oximetry (%) 99 Oxygen Delivery Method Room Air Intake Visit Reasons: Itchy, swollen eyes After School Program Assistant Required: Yes Accompanied by: Self / Same As Patient Allergies metformin Allergy (Intermediate, Verified 08/31/22 11:26) stomach upset dulaglutide [From Trulicity] Adverse Reaction (Severe, Verified 08/31/22 11:26) blurry vision, abdominal pain insulin glargine [From Toujeo Max U-300 SoloStar] Adverse Reaction (Intermediate, Verified 08/31/22 11:26) Dizziness cats, dogs Allergy (Intermediate, Uncoded 07/05/22 15:19) Agitated many environmental allergies Allergy (Intermediate, Uncoded 07/05/22 15:19) Flushing Medication List - Last Reconciled 08/31/22 by Gustavo Panda PA-C betamethasone dipropionate 0.05% 1 appl topical DAILY PRN 2 weeks bisacodyl (Dulcolax (bisacodyl)) 10 mg (2 x 5 mg) PO BEDTIME blood sugar diagnostic (AlloCure Verio test strips) use 1 strip to test blood sugar four times a day bupropion HCl 150 mg PO QAM 90 days clotrimazole-betamethasone 1-0.05 % 1 appl topical BID PRN 7 days epinephrine IM famotidine (Pepcid) 20 mg PO BID flash glucose sensor (FreeStyle Vonnie 14 Day Sensor kit) As directed fluticasone propionate 50 mcg/actuation 1 spray intranasal BID insulin degludec (Tresiba FlexTouch U-200 insulin) 75 units (0.375 mL) subcut BEDTIME 90 days insulin lispro (Humalog KwikPen (U-100) Insulin) 20 units (0.2 mL) subcut TID 30 days ketotifen fumarate 0.025%(0.035%) 0 drps ophthalmic (eye) lancets (Lightning LabTouch Delica Plus Lancet) one four times a day loratadine 10 mg PO DAILY pen needle, diabetic (BD Ultra-Fine Short Pen Needle) As directed pen needle, diabetic (Comfort EZ Pen [place]) Use 1 pen needle four a day polyethylene glycol 3350 (Miralax) 17 grams PO DAILY semaglutide 1 mg (0.75 mL) subcut QWEEK 30 days simethicone (Gas Relief (simethicone)) 125 mg PO TID-QID PRN simvastatin 40 mg PO BEDTIME 90 days terazosin 2 mg (2 x 1 mg) PO BEDTIME 90 days valacyclovir 500 mg PO BID Tobacco use date assessed: 08/31/22 Dental Screening Dental Screen Date: 08/31/22 Did you have a dental visit in the last 12 months?: Yes Did you have a dental problem in the last 6 months where you did not have access to dental care?: No Was dental information given to patient?: Patient has dentist HPI Itchy, swollen eyes HPI Details Patient is a 52-year-old female here today coming in for problem visit. This the 1st I am meeting this 52-year-old female with a past medical history significant for type 2 diabetes, hypertension, severe allergies, obstructive sleep apnea, obesity, GERD and hyperlipidemia. Report having eye watering and swollen, and throat pain ever since not having her allergy injections. Her curer acid drum has retired now looking for new curer acid drum over the past few months. Has been using antihistamine eyedrops and loratadine which have not been helpful. She reports she is suffering on a daily basis with these allergy symptoms and would like to be placed back on allergy injections and immediate treatment. [facility] Medical History Chronic idiopathic constipation Daytime sleepiness Depression with anxiety Diabetes mellitus DM2 (diabetes mellitus, type 2) Epistaxis GERD (gastroesophageal reflux disease) Hot flashes Left hand pain shelter (current) use of insulin Lumbar pain Mild recurrent major depression Obese Obesity (BMI 30-39.9) Obesity due to excess calories Overflow incontinence of urine Polyarthralgia Pterygium of both eyes Pure hypercholesterolemia Urge urinary incontinence Surgical History History of ectopic Family History Father Diabetes Hypertension Mother Diabetes Hypertension Cancer Family/Other FH: mental illness Brother No problems noted. Sister No problems noted. Social History Housing: Apartment Alcohol intake: current Alcohol intake frequency: holidays/special occasions only Alcohol type: wine Patient Tobacco Use Status: Never used Tobacco e-Cigarette/Vaping Use: Never Used Second Hand Smoke Exposure: No service: No Current occupational status: unemployed Cognitive needs: No Hearing needs: No Vision needs: No Female Reproductive History Menstrual Age of Menarche: 10 Questionnaire PHQ-9 Over the last 2 weeks, how often have you been bothered by any of the following problems? 1. Little interest or pleasure in doing things: several days 2. Feeling down, depressed, or hopeless: more than half the days 3. Trouble falling or staying asleep, or sleeping too much: several days 4. Feeling tired or having little energy: several days 5. Poor appetite or overeating: more than half the days 6. Feeling bad about yourself - or that you are a failure or have let yourself or your family down: not at all 7. Trouble concentrating on things, such as reading the newspaper or watching television: not at all 8. Moving or speaking so slowly that other people could have noticed. Or the opposite - being so fidgety or restless that you have been moving around a lot more than usual: not at all 9. Thoughts that you would be better off or of hurting yourself in some way: not at all Total score: 7 Depression Screening Interpretation: Positive Depression Screening Follow-up: Existing condition and In treatment 19085 - PHQ-9 Billing: Yes Source: Developed by Drs. Jack Webster, Renetta Parker, Fan Dotson and colleagues, with an educational nuris from [employer]. Thrive Questionnaire Date Thrive assessed: 08/31/22 I am a: Patient What is your living situation today?: I have a steady place to live Within the past 12 months, did the food you bought not last and you didn't have the money to get more?: Never true Within the past 12 months, did you worry whether your food would run out before you got money to buy more?: Never true Do you have trouble paying for medicines?: No Do you have trouble getting transportation to medical appointments?: No Do you have trouble paying your heating and electricity bill?: No Do you have trouble taking care of your child, family member or friend?: No Do you have trouble with day-to-day activities such as bathing, preparing meals, shopping, managing finances, etc.?: No Are you currently unemployed and looking for a job?: No Are you interested in more education?: No Please select the resources that you would like help with: None Currently or been in a relationship where the following occur: no concerns reported AUDIT C Alcohol Use Questionnaire (AUDIT-C) 1. How often do you have a drink containing alcohol?: Never Total Score: 0 SWATHI-7 AMB Questionnaire SWATHI-7 Date SWATHI - 7 assessed: 08/31/22 Feeling nervous, anxious, or on edge: 0 = Not at all Not being able to stop or control worryin = Not at all Worrying too much about different things: 0 = Not at all Trouble relaxin = Not at all Being so restless that it is hard to sit still: 0 = Not at all Becoming easily annoyed or irritable: 0 = Not at all Feeling afraid as if something awful might happen: 0 = Not at all Total SWATHI-7 score (0-4 normal; 5-9 mild; 10-14 moderate; 15-21 severe): 0 Source: Developed by Drs. Jack Webster, Renetta Parker, Fan Dotson and colleagues, with an educational nuris from [employer]. Review of Systems Const Denies headache(s) Eyes Denies loss of vision ENT Denies vertigo, Denies dizziness, Denies headache(s) and Denies sore throat Card Denies chest pain, Denies leg edema and Denies lightheadedness Resp Denies cough, Denies hemoptysis and Denies wheezing GI Denies abdominal pain, Denies melena, Denies constipation, Denies diarrhea and Denies vomiting Denies urinary frequency, Denies dysuria and Denies urinary urgency Musc Denies arthralgias, Denies joint swelling, Denies numbness and Denies tingling Neuro Denies Abnormal speech present, Denies behavioral changes, Denies vertigo, Denies dizziness, Denies headache(s), Denies loss of vision, Denies memory loss, Denies numbness and Denies tingling Psych Denies anxiety, Denies behavioral changes, Denies depression, Denies memory loss and Denies panic attacks Fercho/Lymph Denies easy bleeding and Denies easy bruising Aller/Immun Denies wheezing Physical exam (Primary Care) Vital Signs: Last Vital Signs Pulse 95 08/31/22 11:17 BP 122/80 08/31/22 11:17 Pulse Ox 99 08/31/22 11:17 Oxygen Delivery Method Room Air 08/31/22 11:17 BMI result Body Mass Index 31.8 Tobacco/Smoking Status: Tobacco use Status Tobacco use date assessed 08/31/22 08/31/22 11:21 Patient Tobacco Use Status Never used Tobacco 08/31/22 11:21 e-Cigarette/Vaping Use Never Used 08/31/22 11:21 PHQ-9: PHQ-9 Score PHQ-9: Total score 7 08/31/22 11:32 Depression Screening Interpretation: Positive Depression Screening Follow-up: Existing condition and In treatment Thrive Assessment: Date of Thrive Assessment Date Thrive assessed 08/31/22 08/31/22 11:21 Currently or been in a relationship where the following occur: no concerns reported Const General: healthy appearing, no acute distress, alert and awake Nutritional Appearance: well nourished Orientation/consciousness: oriented to person, oriented to place and oriented to time HENMT Other: NOSE INTERNAL MUCOSA ERYTHEMATOUS, CLEAR WATERY DISCHARGE NOTED. Ears: TM's normal bilaterally Eyes Other: BILATERAL EYE SCLERA IS ERYTHEMATOUS, WATERY DISCHARGE NOTED Pupils: Equal, round and reactive pupils present Neck Neck: Yes no lymphadenopathy and Yes no JVD Thyroid: Thyroid normal Carotids: no bruits Resp Effort & Inspection: normal respiratory effort and not tachypneic Auscultation: no crackles, no rales, no rhonchi and no wheezes Cardio Rate: regular rate Rhythm: regular rhythm Heart sounds: no murmurs and normal S1 and S2 GI Palpation (GI): Soft to palpation, nontender, no hepatomegaly and no splenomegaly Auscultation: normal bowel sounds Skin General skin exam: no rashes or lesions noted and dry skin Neuro General: oriented to person, oriented to place and oriented to time Cranial nerves: Yes Equal, round and reactive pupils present Speech: No Abnormal speech present Gait exam (Neuro): Normal gait present Motor exam (neuro): no tremor noted Extrem Right upper extremity: full ROM Left upper extremity: full ROM Right lower extremity: full ROM; no edema Left lower extremity: full ROM; no edema Psych Mental Status: mental status grossly normal Speech and movement: Normal speech and movement present Affect: normal affect Attitude: cooperative Thought process: Normal thought process present Assessment and Plan Assessment & Plan (1) Allergic rhinitis due to allergen: Code(s): J30.9 - Allergic rhinitis, unspecified Qualifiers: Allergic rhinitis seasonality: non-seasonal Allergic rhinitis trigger: pollen Qualified Code(s): J30.1 - Allergic rhinitis due to pollen Plan: Patient's signs and symptoms most consistent with an allergic conjunctivitis and rhinitis. Has been off of her allergy injections to her construction safety consultant as her construction safety consultant has retired. Seems to be having rebound symptoms. Loratadine not helpful. Will transition to [facility] from loratadine. Will supply with new eyedrops, will do short-term prednisone taper for the inflammation in her eyes and nasal passages. Orders: Referrals Allergy & Immunology Referral J30.1 - Allergic rhinitis due to pollen Medications: New prednisone 10 mg PO DAILY 6 days 12 tabs 0RF J30.1 - Allergic rhinitis due to pollen olopatadine 0.2% (Pataday Once Daily Relief) 1 drp ophthalmic (eye) BEDTIME 15 days 2.5 mL 0RF J30.1 - Allergic rhinitis due to pollen cetirizine 10 mg PO DAILY 30 days 30 tabs 1RF J30.1 - Allergic rhinitis due to pollen Coding Level of Care Code Est Pt Level 3 (67984) Diagnoses Allergic rhinitis due to allergen J30.1 Allergic rhinitis seasonality: non-seasonal Allergic rhinitis trigger: pollen
[2022-08-31 11:17] VITALS: BP 122/80; PULSE 95; O2SAT 99; BMI 31.8
== END 2022-08-31 12:04 | disposition home or self-care (01) ==
PROVIDERS: PCP Internal Medicine; Visit Provider Physician Assistant
DX: J30.1 Allergic rhinitis due to pollen (principal)
CPT/HCPCS: 99213

== ENCOUNTER 2022-09-15 10:16 | Outpatient (AMB) | payer OTHER, SELFPAY ==
[2022-09-15 10:23] VITALS: BP 120/70; BMI 31.3
--- NOTE | 2022-09-15 10:23 | A.OFFPC_ITS ---
Vital Signs 09/15/22 10:23 Height 5 ft 2 in Weight 171 lb BMI 31.3 BP 120/70 Blood Pressure Location Lt brachial Position Sitting Intake Visit Reasons: Cataract surgery 09/30/22 Intake Note: Patient here for a pre-op cataract surgery 10/21 right eye, 11/02 right eye with [facility] Test Technician Required: No Accompanied by: Self / Same As Patient Allergies metformin Allergy (Intermediate, Verified 09/15/22 10:27) stomach upset dulaglutide [From Trulicity] Adverse Reaction (Severe, Verified 09/15/22 10:27) blurry vision, abdominal pain insulin glargine [From Toujeo Max U-300 SoloStar] Adverse Reaction (Intermediate, Verified 09/15/22 10:27) Dizziness cats, dogs Allergy (Intermediate, Uncoded 07/05/22 15:19) Agitated many environmental allergies Allergy (Intermediate, Uncoded 07/05/22 15:19) Flushing Medication List - Last Reconciled 09/15/22 by Tammy Swanson MD betamethasone dipropionate 0.05% 1 appl topical DAILY PRN 2 weeks bisacodyl (Dulcolax (bisacodyl)) 10 mg (2 x 5 mg) PO BEDTIME blood sugar diagnostic (Piper Verio test strips) use 1 strip to test blood sugar four times a day bupropion HCl 150 mg PO QAM 90 days cetirizine 10 mg PO DAILY 30 days clotrimazole-betamethasone 1-0.05 % 1 appl topical BID PRN 7 days epinephrine IM famotidine (Pepcid) 20 mg PO BID flash glucose sensor (FreeStyle Vonnie 14 Day Sensor kit) As directed fluticasone propionate 50 mcg/actuation 1 spray intranasal BID insulin degludec (Tresiba FlexTouch U-200 insulin) 75 units (0.375 mL) subcut BEDTIME 90 days insulin lispro (Humalog KwikPen (U-100) Insulin) 20 units (0.2 mL) subcut TID 30 days ketotifen fumarate 0.025%(0.035%) 0 drps ophthalmic (eye) lancets (WorkTouchTouch Delica Plus Lancet) one four times a day loratadine 10 mg PO DAILY olopatadine 0.2% (Pataday Once Daily Relief) 1 drp ophthalmic (eye) BEDTIME 15 days pen needle, diabetic (BD Ultra-Fine Short Pen Needle) As directed pen needle, diabetic (Comfort EZ Pen [place]) Use 1 pen needle four a day polyethylene glycol 3350 (Miralax) 17 grams PO DAILY semaglutide 1 mg (0.75 mL) subcut QWEEK 30 days simethicone (Gas Relief (simethicone)) 125 mg PO TID-QID PRN simvastatin 40 mg PO BEDTIME 90 days terazosin 2 mg (2 x 1 mg) PO BEDTIME 90 days valacyclovir 500 mg PO BID Tobacco use date assessed: 08/31/22 Dental Screening Dental Screen Date: 09/15/22 Did you have a dental visit in the last 12 months?: Yes Did you have a dental problem in the last 6 months where you did not have access to dental care?: No Was dental information given to patient?: Patient has dentist HPI Cataract surgery 09/30/22 HPI Details right eye oct 21 and left eye nov 02 HPI Comments History of Present Illness Details This is a 52-year-old female with diabetes mellitus type 2 on long-term current use of insulin, mild recurrent major depression, pure hypercholesterolemia and GERD that comes today for preop evaluation of cataract extraction and intra-ocular lens implant. First surgery will be right eye October 21 and left eye November 02. Last A1c was elevated and I will increase insulin. Depression stable with medications. LDL close to goal. GERD stable with PPIs. She denies any chest pain or shortness of breath. Labs and EKG are still pending for medical clearance. [facility] Medical History Chronic idiopathic constipation Daytime sleepiness Depression with anxiety Diabetes mellitus DM2 (diabetes mellitus, type 2) Epistaxis GERD (gastroesophageal reflux disease) Hot flashes Left hand pain residential (current) use of insulin Lumbar pain Mild recurrent major depression Obese Obesity (BMI 30-39.9) Obesity due to excess calories Overflow incontinence of urine Polyarthralgia Pterygium of both eyes Pure hypercholesterolemia Urge urinary incontinence Surgical History History of ectopic Family History Father Diabetes Hypertension Mother Diabetes Hypertension Cancer Family/Other FH: mental illness Brother No problems noted. Sister No problems noted. Social History Housing: Apartment Alcohol intake: current Alcohol intake frequency: holidays/special occasions only Alcohol type: wine Patient Tobacco Use Status: Never used Tobacco e-Cigarette/Vaping Use: Never Used Second Hand Smoke Exposure: No service: No Current occupational status: unemployed Cognitive needs: No Hearing needs: No Vision needs: No Female Reproductive History Menstrual Age of Menarche: 10 Questionnaire Thrive Questionnaire Date Thrive assessed: 08/31/22 SWATHI-7 AMB Questionnaire SWATHI-7 Date SWATHI - 7 assessed: 08/31/22 Source: Developed by Drs. Jack Webster, Renetta Parker, Fan Dotson and colleagues, with an educational nuris from [employer]. Review of Systems Const All systems reviewed & are unremarkable except as noted in HPI and below Eyes Reports no additional complaints, Denies change in vision and Denies other visual disturbances Card Denies chest pain at rest, Denies chest pain with activity, Denies edema, Denies irregular heart rhythm, Denies claudication, Denies dyspnea, Denies dyspnea on exertion, Denies orthopnea, Denies paroxysmal nocturnal dyspnea and Denies slow heart rate Resp Denies cough, Denies dyspnea and Denies dyspnea on exertion GI Denies abdominal pain, Denies change in bowel habits, Denies excessive flatus, Denies nausea and Denies vomiting Denies urinary incontinence, Denies urinary hesitancy and Denies urinary urgency Musc Denies abnormal gait, Denies atrophy, Denies deformity and Denies limited range of motion Skin/Breast Denies bleeding lesions, Denies changing lesions and Denies rash Neuro Denies abnormal gait and Denies lack of coordination Physical exam (Primary Care) Vital Signs: Last Vital Signs BP 120/70 09/15/22 10:23 BMI result Body Mass Index 31.3 Tobacco/Smoking Status: Tobacco use Status Tobacco use date assessed 08/31/22 09/15/22 10:28 Patient Tobacco Use Status Never used Tobacco 09/15/22 10:28 e-Cigarette/Vaping Use Never Used 09/15/22 10:28 Thrive Assessment: Date of Thrive Assessment Date Thrive assessed 08/31/22 09/15/22 10:28 Eyes General: appearance normal, both eyes and all related structures Eyelids: Yes eyelids normal Conjunctivae: conjunctivae normal Neck Neck: Yes normal visual inspection and Yes supple Resp Effort & Inspection: normal respiratory effort Auscultation: clear to auscultation bilaterally Cardio Jugular venous distension: no JVD Rate: regular rate Rhythm: regular rhythm Heart sounds: S1 normal heart sound present and S2 normal heart sound present Extrem General: Yes full ROM Assessment and Plan Assessment & Plan (1) Preoperative examination: Code(s): Z01.818 - Encounter for other preprocedural examination Plan: Labs and EKG pending. (2) DM2 (diabetes mellitus, type 2): Code(s): E11.9 - Type 2 diabetes mellitus without complications Qualifiers: Diabetes mellitus complication status: with hyperglycemia Diabetes mellitus terminal clerk insulin use: with terminal clerk use Qualified Code(s): E11.65 - Type 2 diabetes mellitus with hyperglycemia; Z79.4 - residential (current) use of insulin Plan: Increase insulin. A1c goal is equal or less than 7%. (3) Mild recurrent major depression: Code(s): F33.0 - Major depressive disorder, recurrent, mild Plan: Continue bupropion. (4) Pure hypercholesterolemia: Code(s): E78.00 - Pure hypercholesterolemia, unspecified Plan: Continue statins. (5) GERD (gastroesophageal reflux disease): Code(s): K21.9 - Gastro-esophageal reflux disease without esophagitis Qualifiers: Esophagitis presence: esophagitis presence not specified Qualified Code(s): K21.9 - Gastro-esophageal reflux disease without esophagitis Plan: Continue famotidine. Orders: Orders ECG 12 lead EKG 09/15/22 Z01.818 - Encounter for other preprocedural examination Comprehensive [place]. Panel Fast 09/15/22 E11.65 - Type 2 diabetes mellitus with hyperglycemia, Z79.4 - joint terminal attack controller (current) use of insulin Complete Blood Count Auto Diff 09/15/22 E66.09 - Other obesity due to excess calories US thyroid 1 Month E04.1 - Nontoxic single thyroid nodule Medications: Changed From insulin degludec (Tresiba FlexTouch U-200 insulin) 75 units (0.375 mL) subcut BEDTIME 90 days 33.75 mL 6RF E11.65 - Type 2 diabetes mellitus with hyperglycemia, Z79.4 - residential (current) use of insulin To insulin degludec (Tresiba FlexTouch U-200 insulin) 80 units (0.4 mL) subcut BEDTIME 36 mL 6RF 90 days E11.65 - Type 2 diabetes mellitus with hyperglycemia, Z79.4 - residential (current) use of insulin Coding Level of Care Code Est Pt Level 4 (10647) Diagnoses Preoperative examination Z01.818 DM2 (diabetes mellitus, type 2) E11.65; Z79.4 Diabetes mellitus complication status: with hyperglycemia Diabetes mellitus terminal clerk insulin use: with terminal clerk use Mild recurrent major depression F33.0 Pure hypercholesterolemia E78.00 GERD (gastroesophageal reflux disease) K21.9 Esophagitis presence: esophagitis presence not specified Time Spent (min) 22
== END 2022-09-15 10:43 | disposition home or self-care (01) ==
PROVIDERS: PCP Internal Medicine; Visit Provider Internal Medicine
DX: Z01.818 Encounter for other preprocedural examination (principal); H25.9 Unspecified age-related cataract; E11.65 Type 2 diabetes mellitus with hyperglycemia; Z79.4 Long term (current) use of insulin; F33.0 Major depressive disorder, recurrent, mild; E78.00 Pure hypercholesterolemia, unspecified; K21.9 Gastro-esophageal reflux disease without esophagitis
CPT/HCPCS: 99214

== ENCOUNTER 2022-09-15 11:03 | Outpatient (REF) | payer OTHER, SELFPAY ==
--- NOTE | 2022-09-15 11:16 | ECG_ITS ---
Test Reason : z01.818 Blood Pressure : / mmHG Vent. Rate : 082 BPM Atrial Rate : 082 BPM P-R Int : 148 ms QRS Dur : 080 ms QT Int : 372 ms P-R-T Axes : 047 -16 044 degrees QTc Int : 434 ms Normal sinus rhythm Normal ECG When compared with ECG of 05-OCT-2020 10:28, No significant change was found Referred By: Tammy Swanson Electronically Signed By:MERCEDES HARDING
[2022-09-15 11:28] LABS: MANUAL DIFF FLAG NO
[2022-09-15 12:10] LABS: Basophils Percent Auto 0.2 % (0-2); Eosinophils Absolute Auto 0.1 X10*3/uL (0.0-0.4); Eosinophils Percent Auto 1.1 % (0-4); Hematocrit 44.8 % (37.0-47.0); Hemoglobin 14.9 g/dl (12.0-16.0); Imm Gran Abs Auto 0.02 X10*3/uL (0.00-0.03); Imm Gran Pct Auto 0.2 % (0.0-0.4); Lymphocytes Absolute Auto 2.7 X10*3/uL (1.2-4.9); Lymphocytes Percent Auto 29.9 % (20-40); Mean Corpuscular HGB Conc 33.3 g/dl (31.0-35.0); Mean Corpuscular Hemoglobin 30.5 pg (27.0-33.0); Mean Corpuscular Volume 91.6 fL (80.0-98.0); Mean Platelet Volume 10.5 fL (9.4-12.3); Monocytes Absolute Auto 0.3 X10*3/uL (0.1-1.2); Monocytes Percent Auto 3.7 % (2-11); Neutrophils Absolute Auto 5.9 x10*3/uL (2.0-8.3); Neutrophils Percent Auto 64.9 % (45-73); Platelet Count 326 X10*3/uL (160-400); Red Blood Count 4.89 X10*6/uL (4.20-5.50); Red Cell Distribution Width 12.1 % (11.0-16.0); White Blood Count 9.2 X10*3/uL (4.8-10.8)
[2022-09-15 12:47] LABS: Alanine Aminotransferase 28 U/L (0-31); Albumin Level 4.1 g/dL (3.5-5.0); Alkaline Phosphatase 80 U/L (39-117); Anion Gap 14 (12-20); Aspartate Amino Transferase 20 U/L (5-31); Bilirubin Total 0.2 mg/dL (0.0-1.0); Blood Urea Nitrogen 8 mg/dL (9-16); Calcium 9.8 mg/dL (8.4-10.2); Carbon Dioxide 25 mmol/L (22-29); Chloride 102 mmol/L (96-108); Estimated Glomerular Filt Rate > 60; Glucose Fasting 259 mg/dL (60-99); Potassium 4.2 mmol/L (3.3-5.1); Sodium 137 mmol/L (135-145); Total Protein 7.7 g/dL (6.5-8.0)
== END 2022-09-15 11:04 | disposition home or self-care (01) ==
LOC: HO.LAB 11:03
PROVIDERS: PCP Internal Medicine; Visit Provider Internal Medicine
DX: Z01.818 Encounter for other preprocedural examination (principal); E11.65 Type 2 diabetes mellitus with hyperglycemia; E66.09 Other obesity due to excess calories; Z79.4 Long term (current) use of insulin
CPT/HCPCS: 36415; 80053; 85025; 93005

== ENCOUNTER → 2022-09-15 11:16 | Outpatient (BNV) | payer OTHER, SELFPAY | PROVIDERS: PCP Internal Medicine; Visit Provider Internal Medicine | DX: Z01.818 Encounter for other preprocedural examination (principal) | CPT/HCPCS: 93010 ==

== ENCOUNTER 2022-09-27 16:28 | Outpatient (REF) | payer OTHER, SELFPAY ==
--- NOTE | ~2022-09-27 | US_ITS ---
EXAMINATION: US THYROID CLINICAL INFORMATION: Nontoxic single thyroid nodule. COMPARISON: Ultrasound soft tissue head/neck thyroid dated 11/04/2021 and 06/25/2018. TECHNIQUE: Linear transducer grayscale and color Doppler examination with attention to the region of the thyroid. FINDINGS: SIZE: Measurements of the thyroid lobes and nodules are given in sagittal, anteroposterior and transverse dimensions respectively. Right Thyroid Lobe: 5.5 x 1.7 x 1.3 cm, volume 6.2 mL. Previously 5.9 x 1.4 x 1.5 cm, volume 6.2 mL. Parenchyma: The gland echotexture is homogeneous. Thyroid vascularity is normal. Left Thyroid Lobe: 4.3 x 1.6 x 1.4 cm, volume 4.9 mL. Previously 4.7 x 1.8 x 1.4 cm, volume 6.2 mL. Parenchyma: The gland echotexture is homogeneous. Thyroid vascularity is normal. Isthmus: 0.3 cm in maximum AP dimension. Previously 0.2 cm. Estimated total number of nodules greater than or equal to 1 cm: 0. Quality Assurance Monitor nodules are described as follows: 1. Location: Right inferior. Size: 0.4 x 0.4 x 0.4 cm, volume 0.03 mL. Previously: 0.6 x 0.6 x 0.4 cm, volume 0.07 mL. Nodule characteristics: Composition: Solid (2). Echogenicity: Hypoechoic (2). Shape: Not taller than wide (0). Margins: Ill-defined (0). Echogenic Foci: None (0). ACR TI-RADS total points: 4 Previous: 3 ACR TI-RADS category: 4 Previous: 3 NODES: No lymphadenopathy is seen in the tissue surrounding the thyroid gland. US/US thyroid IMPRESSION: Right TR 4 0.4 cm thyroid nodule ACR TI-RADS RECOMMENDATION REFERENCE: Ultrasound-guided fine-needle aspiration, follow up ultrasound, no further followup. * TR1 (0 point) and TR2 (2 points): No FNA or followup * TR3 (3 points): FNA if more than or equal to 2.5 cm in maximum dimension, follow up ultrasound in 1, 3 and 5 years if 1.5 to 2.4 cm in maximum dimension. * TR4 (4-6 points): FNA if more than or equal to 1.5 cm in maximum dimension, follow up ultrasound in 1, 2, 3 and 5 years if 1 to 1.4 cm in maximum dimension. * TR5 (more than or equal to 7 points): FNA if more than or equal to 1 cm in maximum dimension, follow up ultrasound every year for 5 years if 0.5 to 0.9 cm in maximum dimension. * TR3, TR4 or TR5 nodules that are below the size threshold for follow up receive no followup.
== END 2022-09-27 16:29 | disposition home or self-care (01) ==
LOC: HO.US 16:28
PROVIDERS: PCP Internal Medicine; Visit Provider Internal Medicine
DX: E04.1 Nontoxic single thyroid nodule (principal)
CPT/HCPCS: 76536

== ENCOUNTER 2022-12-01 12:54 | Outpatient (AMB) | payer OTHER, SELFPAY ==
[2022-12-01 13:00] VITALS: BP 116/70; BMI 31.6
--- NOTE | 2022-12-01 13:00 | A.OFFVIS_ITS ---
Intake Vital Signs 12/01/22 13:00 Height 5 ft 2 in Weight 173 lb BMI 31.6 BP 116/70 Intake Visit Reasons: Vaginitis Intake Note: The patient agreed to use of a emergency medical technician/driver during this encounter. Scribed for [place] by Lsia Fleming emergency medical technician/driver, on 12/01/2022 at 1:13 pm EST. Sewer System Supervisor Required: No Allergies metformin Allergy (Intermediate, Verified 12/01/22 13:04) stomach upset dulaglutide [From Trulicity] Adverse Reaction (Severe, Verified 12/01/22 13:04) blurry vision, abdominal pain insulin glargine [From Toujeo Max U-300 SoloStar] Adverse Reaction (Intermediate, Verified 12/01/22 13:04) Dizziness cats, dogs Allergy (Intermediate, Uncoded 07/05/22 15:19) Agitated many environmental allergies Allergy (Intermediate, Uncoded 07/05/22 15:19) Flushing HPI HPI Comments History of Present Illness Details She is here with complaints of vaginal irritation and yellow discharge. Denies pelvic pain and urinary symptoms. Reports she takes Vitamin D. Reports hot flashes. Not up to date with her mammogram and does not have a ob/gyn nurse annual booked. She requests refills on several topical creams including Estrace. [facility] Medical History Chronic idiopathic constipation Epistaxis Overflow incontinence of urine buttermaker (current) use of insulin Obesity due to excess calories DM2 (diabetes mellitus, type 2) Urge urinary incontinence Lumbar pain Mild recurrent major depression Obesity (BMI 30-39.9) Hot flashes Pterygium of both eyes Depression with anxiety Daytime sleepiness GERD (gastroesophageal reflux disease) Polyarthralgia Left hand pain Obese Pure hypercholesterolemia Diabetes mellitus Surgical History History of ectopic Family History Father Diabetes Hypertension Mother Diabetes Hypertension Cancer Family/Other FH: mental illness Brother No problems noted. Sister No problems noted. Social History Housing: Apartment Alcohol intake: current Alcohol intake frequency: holidays/special occasions only Alcohol type: wine Patient Tobacco Use Status: Never used Tobacco e-Cigarette/Vaping Use: Never Used Second Hand Smoke Exposure: No service: No Current occupational status: unemployed Cognitive needs: No Hearing needs: No Vision needs: No Female Reproductive History Menstrual Age of Menarche: 10 Physical Exam Vital Signs: Last Vital Signs BP 116/70 12/01/22 13:00 BMI result Body Mass Index 31.6 Const General: cooperative, healthy appearing, comfortable, no acute distress, well developed, alert and awake Other: General: Yes bladder normal to palpation External Female Exam: normal external appearance and normal appearance of the urethra Speculum Exam - Vagina: normal appearance of the vagina, normal palpation and abnormal vaginal discharge yellow (pale) Speculum Exam - Cervix: normal appearance of the cervix and normal palpation Bimanual exam- vagina & uterus: normal bimanual exam, normal palpation, bladder normal to palpation and normal palpation Bimanual Exam- Adnexa, other: normal adnexae and no masses Assessment & Plan Assessment & Plan (1) Vaginal irritation: Code(s): N89.8 - Other specified noninflammatory disorders of vagina Plan: Discussed: BV testing and GC/CT panel done today. Await results and treat accordingly. Clean with water only, no soaps. Mammogram ordered. Advised to schedule her ob/gyn nurse annual and at that visit we will review her meds and medical changes again before refilling her medications. Also await the results for any new Rx. and treatment plan. Discussed risks of HRT/hormones and breast cancer, the need for an UTD mammogram is requested. All of her questions and concerns were addressed to the best of my ability and s hared decision making. She is agreeable to plan of care. (2) Vaginal discharge: Code(s): N89.8 - Other specified noninflammatory disorders of vagina (3) Hot flashes: Code(s): R23.2 - Flushing Plan: Wear light, layered clothing. Sleep with fan on. Can also try a cooling pillow or mattress. Stay well hydrated. Orders: Orders Bacterial Vaginosis Panel Today N89.8 - Other specified noninflammatory disorders of vagina CT NG by PCR Today N89.8 - Other specified noninflammatory disorders of vagina MM tomosynthesis screening BI Today Z12.31 - Encounter for screening mammogram for malignant neoplasm of breast Coding Level of Care Code Est Pt Level 3 (39445) Diagnoses Vaginal irritation N89.8 Vaginal discharge N89.8 Hot flashes R23.2
== END 2022-12-01 13:31 | disposition home or self-care (01) ==
PROVIDERS: PCP Internal Medicine; Visit Provider Advanced Practice Midwife
DX: N89.8 Other specified noninflammatory disorders of vagina (principal); R23.2 Flushing
CPT/HCPCS: 99213

== ENCOUNTER 2022-12-01 12:54 | Outpatient (REF) | payer OTHER, SELFPAY ==
[2022-12-01 16:53] LABS: CT PCR NOT DETECTED (Not Detect.); NG PCR NOT DETECTED (Not Detect.)
[2022-12-02 11:14] LABS: BV Int Neg Control Negative (Negative); BV Int Pos Control Positive (Positive)
== END 2022-12-01 12:55 | disposition home or self-care (01) ==
LOC: HO.LAB 12:54
PROVIDERS: PCP Internal Medicine; Visit Provider Advanced Practice Midwife
DX: N76.0 Acute vaginitis (principal); R23.2 Flushing
CPT/HCPCS: 0353U; 87480; 87510; 87660; 99212

== ENCOUNTER 2022-12-01 13:19 | Outpatient (REF) | payer OTHER, SELFPAY | END 2022-12-01 13:20 | disposition home or self-care (01) | LOC: HO.LNP 13:19 | PROVIDERS: Visit Provider Advanced Practice Midwife | DX: Z13.89 Encounter for screening for other disorder (principal) ==

== ENCOUNTER 2023-01-02 13:34 | Outpatient (REF) | payer OTHER, SELFPAY | END 2023-01-02 13:35 | disposition home or self-care (01) | LOC: HO.LNP 13:34 | PROVIDERS: Visit Provider Nurse Practitioner Family | DX: N32.81 Overactive bladder (principal); N39.41 Urge incontinence; R39.9 Unspecified symptoms and signs involving the genitourinary system; N39.490 Overflow incontinence | CPT/HCPCS: 51798; 81003; 87086; 99212 ==

== ENCOUNTER 2023-01-02 13:34 | Outpatient (AMB) | payer OTHER, SELFPAY ==
--- NOTE | 2023-01-02 13:37 | A.OFFVIS_ITS ---
Intake Intake Visit Reasons: 6m/PVR Intake Note: Patient is present for follow up [facility] Medications: terazosin Blood Thinner: none PVR: 11ml's Draw String Knotter Required: Yes Accompanied by: Mother Allergies metformin Allergy (Intermediate, Verified 01/02/23 14:24) stomach upset dulaglutide [From Trulicity] Adverse Reaction (Severe, Verified 01/02/23 14:24) blurry vision, abdominal pain insulin glargine [From Toujeo Max U-300 SoloStar] Adverse Reaction (Intermediate, Verified 01/02/23 14:24) Dizziness cats, dogs Allergy (Intermediate, Uncoded 01/02/23 14:24) Agitated many environmental allergies Allergy (Intermediate, Uncoded 01/02/23 14:24) Flushing Medication List - Last Reconciled 01/02/23 by MATTIE Garcia- blood sugar diagnostic (OfferialTouch Verio test strips) use 1 strip to test blood sugar four times a day bupropion HCl 150 mg PO QAM 90 days cetirizine 10 mg PO DAILY 30 days epinephrine IM famotidine (Pepcid) 20 mg PO BID flash glucose sensor (FreeStyle Vonnie 14 Day Sensor kit) As directed insulin aspart U-100 (Novolog FlexPen U-100 Insulin aspart) 20 units (0.2 mL) subcut TID 30 days insulin degludec (Tresiba FlexTouch U-200 insulin) 80 units (0.4 mL) subcut BEDTIME 90 days ketotifen fumarate 0.025%(0.035%) 0 drps ophthalmic (eye) lancets (OneTouch Delica Plus Lancet) one four times a day olopatadine 0.2% (Pataday Once Daily Relief) 1 drp ophthalmic (eye) BEDTIME 15 days pen needle, diabetic (BD Ultra-Fine Short Pen Needle) As directed pen needle, diabetic (Comfort EZ Pen [place]orest) Use 1 pen needle four a day polyethylene glycol 3350 (Miralax) 17 grams PO DAILY semaglutide 1 mg (0.75 mL) subcut QWEEK 30 days simethicone (Gas Relief (simethicone)) 125 mg PO TID-QID PRN simvastatin 40 mg PO BEDTIME 90 days terazosin 2 mg (2 x 1 mg) PO BEDTIME 90 days valacyclovir 500 mg PO BID HPI HPI Comments History of Present Illness Details Lin is a pleasant 52-year-old Divehi-speaking female patient of Dr. Lees was accompanied by her mom at today's office visit. She presents to the office today for follow-up of her urinary frequency, urinary urgency, and incomplete bladder emptying. She has a past medical history of chronic idiopathic constipation, depression, anxiety, type 2 diabetes, GERD, obesity, hypercholesteremia, and endometriosis. Patient reports compliance with 1 mg of terazosin at bedtime. She does report noting improvement in lower urinary tract symptoms with this medication however does continue with urinary frequency. In office urinalysis results reviewed with the patient today. 3+ leukocytes negative nitrates. In review of patient's chart last A1c 07/05--11.4. Discussed and stressed the importance of managing diabetes for improvement in lower urinary tract symptoms. PVR 11 mL. She otherwise denies incontinence, nocturia, hematuria, dysuria, foul smelling urine, changes to urinary stream, flank pain, fever, and or chills. PFS Medical History Chronic idiopathic constipation Epistaxis Overflow incontinence of urine detention (current) use of insulin Obesity due to excess calories DM2 (diabetes mellitus, type 2) Urge urinary incontinence Lumbar pain Mild recurrent major depression Obesity (BMI 30-39.9) Hot flashes Pterygium of both eyes Depression with anxiety Daytime sleepiness GERD (gastroesophageal reflux disease) Polyarthralgia Left hand pain Obese Pure hypercholesterolemia Diabetes mellitus Surgical History History of ectopic Family History Father Diabetes Hypertension Mother Diabetes Hypertension Cancer Family/Other FH: mental illness Brother No problems noted. Sister No problems noted. Social History Housing: Apartment Alcohol intake: current Alcohol intake frequency: holidays/special occasions only Alcohol type: wine Patient Tobacco Use Status: Never used Tobacco e-Cigarette/Vaping Use: Never Used Second Hand Smoke Exposure: No service: No Current occupational status: unemployed Cognitive needs: No Hearing needs: No Vision needs: No Female Reproductive History Menstrual Age of Menarche: 10 Review of Systems Const Reports as per [facility] Eyes Reports no additional complaints ENT Reports no additional complaints Card Reports as per [facility] Resp Reports no additional complaints GI Reports as per HPI Reports as per [facility] Psych Reports as per [facility] Endo Reports as per HPI Physical Exam Const General: cooperative, healthy appearing, comfortable, no acute distress, well developed, alert and awake Orientation/consciousness: patient oriented x3 Limitations: no limitations HEENT Head: Yes normal to inspection, Yes normocephalic and Yes atraumatic Ears: hearing grossly normal bilaterally Eyes General: appearance normal, both eyes and all related structures Neck Neck: Yes normal visual inspection and Yes trachea midline Chest Chest palpation & inspection: normal inspection of the chest Resp Effort & Inspection: normal respiratory effort and able to speak in complete sentences Cardio Rate: regular rate GI Inspection: Yes normal to inspection General: Yes no CVA tenderness Back/Spine/Pelvis Back: no CVA tenderness Skin General skin exam: no rashes or lesions noted Neuro General: patient oriented x3 Extrem General: Yes normal to inspection Psych Appearance: grossly normal and well kempt Mental Status: mental status grossly normal Speech and movement: Normal speech and movement present and Clear speech present Affect: normal affect Attitude: cooperative Thought process: Normal thought process present Thought content: Normal thought content present Insight: Good insight present (Psych) Judgement: Good judgement present (Psych) Office Procedures Post Void Residual Post Residual Void Post Void Residual (PVR): 11 [id number] Void Residual by ultrasound Results AMB Urinalysis, Automated UA Leukoctes 500 Arcenio/uL Last Edit by [employer] on 01/02/23 14:04 UA Nitrite Negative Last Edit by [email or web address] on 01/02/23 14:04 UA Urobilinogen 0.2 mg/dL Last Edit by [employer] on 01/02/23 14:04 UA Protein 15 mg/dL Last Edit by [employer] on 01/02/23 14:04 UA pH 6.0 Last Edit by [employer] on 01/02/23 14:04 UA Blood 0 Edison/uL Last Edit by [employer] on 01/02/23 14:04 UA Specific [place] 1.025 Last Edit by [employer] on 01/02/23 14:04 UA Ketone Negative Last Edit by [employer] on 01/02/23 14:04 UA Bilirubin 0 mg/dL Last Edit by Loan Murray on 01/02/23 14:04 UA Glucose 0 mg/dL Last Edit by [employer] on 01/02/23 14:04 Results Reviewed Results Reviewed: Laboratory Last Values Urine pH (Auto) 6.0 01/02/23 13:50 Specific [place] (Auto) 1.025 01/02/23 13:50 Urine Protein (Auto) 15 mg/dL 01/02/23 13:50 Glucose (UA)(Auto) 0 mg/dL 01/02/23 13:50 Urine Ketones (Auto) Negative 01/02/23 13:50 Urine Blood (Auto) 0 Edison/uL 01/02/23 13:50 Urine Nitrite (Auto) Negative 01/02/23 13:50 Urine Bilirubin (Auto) 0 mg/dL 01/02/23 13:50 Urine Urobilinogen (Auto) 0.2 mg/dL 01/02/23 13:50 Leukocyte Esterase (Auto) 500 Arcenio/uL 01/02/23 13:50 Assessment & Plan Assessment & Plan (1) Overactive bladder: Code(s): N32.81 - Overactive bladder (2) Lower urinary tract symptoms: Code(s): R39.9 - Unspecified symptoms and signs involving the genitourinary system (3) Overflow incontinence of urine: Code(s): N39.490 - Overflow incontinence (4) Urge urinary incontinence: Code(s): N39.41 - Urge incontinence Plan In office urinalysis results reviewed with the patient today; as noted above; will send for urine culture. Continue terazosin 1 mg at bedtime as discussed and prescribed. Discussed and stressed the importance of managing diabetes for improvement lower urinary tract symptoms as well as overall health and well-being. Discussed and stressed the importance of drinking plenty of water daily. Patient denies any urological issues or concerns at this time Discussed possible near future retroperitoneal ultrasound and in office cystos copy if symptoms persist and/or worsen. Follow-up in 1 month with PVR; or sooner with any issues, concerns, and or questions. Orders: Orders AMB Post Void Residual by ultrasound Today N39.41 - Urge incontinence AMB Urinalysis Automated Today Z13.9 - Encounter for screening, unspecified Patient Instructions: The patient had an opportunity to ask questions regarding the treatment plan. All questions were answered. Physical exam, labs, and imaging were discussed and reviewed in detail. As well as risks, benefits, and discussion of treatment choices. No major barriers to understanding were identified. The patient expressed understanding and agreement with the above treatment plan. The patient was made aware they should contact our office by phone for worsening of their current condition, the appearance of new symptoms, or with any questions or concerns. Compliance is encouraged with any medications and follow up testing that is ordered. It is a privilege to be allowed the opportunity to participate in? your urological care.? Again, if you have any questions or concerns If you have any questions or concerns please do not hesitate to contact me. The office is [phone]. This note is constructed using voice recognition software. While every effort has been made to ensure accuracy carbon paste mixer operator errors may have been included. Yours sincerely, OMAR Garcia Coding Level of Care Code Est Pt Level 3 (99756) Diagnoses Overactive bladder N32.81 Lower urinary tract symptoms R39.9 Overflow incontinence of urine N39.490 Urge urinary incontinence N39.41 CPT Codes Post Residual Void - PVR CPT Code: 97257-Xghc Void Residual by ultrasound ([id number])
== END 2023-01-02 14:24 | disposition home or self-care (01) ==
PROVIDERS: Visit Provider Nurse Practitioner Family
DX: N32.81 Overactive bladder (principal); R39.9 Unspecified symptoms and signs involving the genitourinary system; N39.490 Overflow incontinence; N39.41 Urge incontinence; Z13.9 Encounter for screening, unspecified
CPT/HCPCS: 99213

== ENCOUNTER 2023-01-12 13:38 | Outpatient (AMB) | payer OTHER, SELFPAY ==
[2023-01-12 13:43] VITALS: BP 111/62; PULSE 97; O2SAT 100; BMI 32.3
--- NOTE | 2023-01-12 13:43 | A.OFFVIS_ITS ---
Intake Vital Signs 01/12/23 13:43 Height 5 ft 2 in Weight 176 lb 5.917 oz BMI 32.3 BP 111/62 Blood Pressure Location Lt brachial Position Sitting Pulse 97 Pulse Source Doppler Pulse Oximetry (%) 100 Oxygen Delivery Method Room Air Intake Visit Reasons: Sleep apnea American Sign Language Teacher Required: Yes American Sign Language Teacher Name: Jaycee Shukla Allergies metformin Allergy (Intermediate, Verified 01/02/23 14:24) stomach upset dulaglutide [From Trulicity] Adverse Reaction (Severe, Verified 01/02/23 14:24) blurry vision, abdominal pain insulin glargine [From Toujeo Max U-300 SoloStar] Adverse Reaction (Intermediate, Verified 01/02/23 14:24) Dizziness cats, dogs Allergy (Intermediate, Uncoded 01/02/23 14:24) Agitated many environmental allergies Allergy (Intermediate, Uncoded 01/02/23 14:24) Flushing HPI Sleep apnea HPI Details 52-year-old lady followed for underlying severe obstructive sleep apnea.? She continues to use CPAP with good control of her symptoms. She denies any other sleep related concerns or complaints at this time. She has not received her CPAP supplies. 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 Sister No problems noted. Social History Housing: Apartment Alcohol intake: current Alcohol intake frequency: holidays/special occasions only Alcohol type: wine Patient Tobacco Use Status: Never used Tobacco e-Cigarette/Vaping Use: Never Used Second Hand Smoke Exposure: No service: No Current occupational status: unemployed Cognitive needs: No Hearing needs: No Vision needs: No Female Reproductive History Menstrual Age of Menarche: 10 Review of Systems Const Denies daytime sleepiness, Denies excessive sweating, Denies fatigue, Denies fever(s), Denies lethargy, Denies malaise, Denies night sweats, Denies snoring and Denies weight loss Eyes Denies blurry vision and Denies itchy eyes ENT Denies nasal congestion, Denies post nasal drip, Denies sinus pain, Denies sinus pressure and Denies other ( Thrush) Card Denies chest pain, Denies pedal edema, Denies dyspnea, Denies orthopnea and Denies paroxysmal nocturnal dyspnea Resp Denies cough, Denies hemoptysis, Denies excessive phlegm production, Denies dyspnea, Denies snoring and Denies wheezing GI Denies abdominal pain and Denies heartburn Musc Denies myalgias, Denies arthralgias and Denies joint swelling Skin/Breast Denies rash Neuro Denies memory loss and Denies seizure-like activity Psych Denies abnormal sleep pattern, Denies anxiety and Denies memory loss Endo Denies excessive sweating, Denies fatigue and Denies heat intolerance Fercho/Lymph Denies easy bruising Aller/Immun Denies itchy eyes, Denies seasonal rhinorrhea and Denies wheezing Physical Exam Vital Signs: Last Vital Signs Pulse 97 01/12/23 13:43 BP 111/62 01/12/23 13:43 Pulse Ox 100 01/12/23 13:43 Oxygen Delivery Method Room Air 01/12/23 13:43 BMI result Body Mass Index 32.3 Const General: no acute distress and alert Nutritional Appearance: not obese Orientation/consciousness: Other orientation findings ( oriented) HEENT Head: Yes atraumatic Eyes General: appearance normal, both eyes and all related structures Sclerae: sclerae normal EOM: EOMs intact bilaterally Neck Neck: Yes supple Lymphatic: no lymphadenopathy noted Resp Effort & Inspection: normal respiratory effort and no use of accessory muscles Auscultation: clear to auscultation bilaterally Cardio Rate: regular rate Rhythm: regular rhythm Heart sounds: no gallops, no murmurs and no rubs Skin General skin exam: other ( warm) Extrem General: No clubbing, No cyanosis and No edema Assessment & Plan Assessment & Plan (1) LUPIS (obstructive sleep apnea): Code(s): G47.33 - Obstructive sleep apnea (adult) (pediatric) Plan: Well controlled on current CPAP therapy. Continue CPAP therapy. Coding Level of Care Code Est Pt Level 3 (35189) Diagnoses LUPIS (obstructive sleep apnea) G47.33
== END 2023-01-12 14:15 | disposition home or self-care (01) ==
PROVIDERS: PCP Internal Medicine; Visit Provider Internal Medicine Pulmonary Disease
DX: G47.33 Obstructive sleep apnea (adult) (pediatric) (principal)
CPT/HCPCS: 99213

== ENCOUNTER → 2023-01-12 13:38 | Outpatient (BNVA) | payer OTHER, SELFPAY | PROVIDERS: PCP Internal Medicine; Visit Provider Internal Medicine Pulmonary Disease | DX: G47.33 Obstructive sleep apnea (adult) (pediatric) (principal); Z99.89 Dependence on other enabling machines and devices | CPT/HCPCS: 99212 ==

== ENCOUNTER 2023-02-14 09:21 | Outpatient (AMB) | payer OTHER, SELFPAY ==
[2023-02-14 09:22] VITALS: BP 108/70; PULSE 78; O2SAT 98; BMI 31.8
--- NOTE | 2023-02-14 09:22 | MHC.PC.OV ---
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 Accompanied by: Self / Same As Patient Allergies metformin Allergy (Intermediate, Verified 02/14/23 09:42) stomach upset dulaglutide [From Trulicity] Adverse Reaction (Severe, Verified 02/14/23 09:42) blurry vision, abdominal pain insulin glargine [From Toujeo Max U-300 SoloStar] Adverse Reaction (Intermediate, Verified 02/14/23 09:42) Dizziness cats, dogs Allergy (Intermediate, Uncoded 02/14/23 09:42) Agitated many environmental allergies Allergy (Intermediate, Uncoded 02/14/23 09:42) Flushing Medication List - Last Reconciled 02/14/23 by Tammy Swanson MD blood sugar diagnostic (GENWITouch Verio test strips) use 1 strip to test blood sugar four times a day bupropion HCl 150 mg PO QAM 90 days cetirizine 10 mg PO DAILY 30 days epinephrine IM famotidine (Pepcid) 20 mg PO BID flash glucose sensor (FreeStyle Vonnie 14 Day Sensor kit) As directed insulin aspart U-100 (Novolog FlexPen U-100 Insulin aspart) 20 units (0.2 mL) subcut TID 30 days insulin degludec (Tresiba FlexTouch U-200 insulin) 80 units (0.4 mL) subcut BEDTIME 90 days ketotifen fumarate 0.025%(0.035%) 0 drps ophthalmic (eye) lancets (OneTouch Delica Plus Lancet) one four times a day olopatadine 0.2% (Pataday Once Daily Relief) 1 drp ophthalmic (eye) BEDTIME 15 days pen needle, diabetic (BD Ultra-Fine Short Pen Needle) As directed pen needle, diabetic (Comfort EZ Pen Midway) Use 1 pen needle four a day polyethylene glycol 3350 (Miralax) 17 grams PO DAILY semaglutide 1 mg (0.75 mL) subcut QWEEK 30 days simethicone (Gas Relief (simethicone)) 125 mg PO TID-QID PRN simvastatin 40 mg PO BEDTIME 90 days terazosin 2 mg (2 x 1 mg) PO BEDTIME 90 days valacyclovir 500 mg PO BID Tobacco use date assessed: 02/14/23 Dental Screening Dental Screen Date: 02/14/23 Did you have a dental visit in the last 12 months?: Yes Did you have a dental problem in the last 6 months where you did not have access to dental care?: No Was dental information given to patient?: Patient has dentist HPI HPI Comments History of Present Illness Details This is a 52-year-old female with diabetes mellitus type 2 on long-term current use of insulin and mild recurrent major depression that comes today for her physical exam. A1c not on goal and I will increase long-acting insulin from 80 units to 83 units. Depression stable with bupropion. Last diabetic eye exam was 2022. Mammogram was over a year ago. Pap smear was 2021 and was normal with HPV negative. Last colonoscopy was 2016 and was normal. Complains of facial hair and would like Vaniqa to be prescribed. [facility] Medical History (Updated 02/14/23 @ 10:15 by Tammy Swanson MD) Chronic idiopathic constipation Epistaxis Overflow incontinence of urine longterm (current) use of insulin Obesity due to excess calories DM2 (diabetes mellitus, type 2) Urge urinary incontinence Lumbar pain Mild recurrent major depression Obesity (BMI 30-39.9) Hot flashes Pterygium of both eyes Depression with anxiety Daytime sleepiness GERD (gastroesophageal reflux disease) Polyarthralgia Left hand pain Obese Pure hypercholesterolemia Diabetes mellitus Surgical History (Updated 02/14/23 @ 09:47 by Tammy Swanson MD) Cataract History of ectopic Family History (Updated 02/14/23 @ 09:48 by Tammy Swanson MD) Father Diabetes Hypertension Mother Diabetes Hypertension Family/Other FH: mental illness Brother No problems noted. Sister No problems noted. Social History Housing: Apartment Alcohol intake: current Alcohol intake frequency: holidays/special occasions only Alcohol type: wine Patient Tobacco Use Status: Never used Tobacco e-Cigarette/Vaping Use: Never Used Second Hand Smoke Exposure: No service: No Current occupational status: unemployed Cognitive needs: No Hearing needs: No Vision needs: No Female Reproductive History Menstrual Age of Menarche: 10 Questionnaire PHQ-9 Over the last 2 weeks, how often have you been bothered by any of the following problems? 1. Little interest or pleasure in doing things: several days 2. Feeling down, depressed, or hopeless: more than half the days 3. Trouble falling or staying asleep, or sleeping too much: several days 4. Feeling tired or having little energy: several days 5. Poor appetite or overeating: more than half the days 6. Feeling bad about yourself - or that you are a failure or have let yourself or your family down: not at all 7. Trouble concentrating on things, such as reading the newspaper or watching television: not at all 8. Moving or speaking so slowly that other people could have noticed. Or the opposite - being so fidgety or restless that you have been moving around a lot more than usual: not at all 9. Thoughts that you would be better off or of hurting yourself in some way: not at all Total score: 7 Depression Screening Interpretation: Positive Depression Screening Follow-up: Existing condition and In treatment Depression Screening Done: Yes 15137 - PHQ-9 Billing: Yes Source: Developed by Drs. Jack Webster, Renteta Parker, Fan Dotson and colleagues, with an educational nuris from [employer]. Thrive Questionnaire Date Thrive assessed: 02/14/23 I am a: Patient What is your living situation today?: I have a steady place to live Within the past 12 months, did the food you bought not last and you didn't have the money to get more?: Never true Within the past 12 months, did you worry whether your food would run out before you got money to buy more?: Never true Do you have trouble paying for medicines?: No Do you have trouble getting transportation to medical appointments?: No Do you have trouble paying your heating and electricity bill?: No Do you have trouble taking care of your child, family member or friend?: No Do you have trouble with day-to-day activities such as bathing, preparing meals, shopping, managing finances, etc.?: No Are you currently unemployed and looking for a job?: No Are you interested in more education?: No Please select the resources that you would like help with: None Currently or been in a relationship where the following occur: no concerns reported AUDIT C Alcohol Use Questionnaire (AUDIT-C) 1. How often do you have a drink containing alcohol?: Never Total Score: 0 Score Reviewed/Action Taken: No SWATHI-7 AMB Questionnaire SWATHI-7 Date SWATHI - 7 assessed: 02/14/23 Feeling nervous, anxious, or on edge: 0 = Not at all Not being able to stop or control worryin = Not at all Worrying too much about different things: 0 = Not at all Trouble relaxin = Not at all Being so restless that it is hard to sit still: 0 = Not at all Becoming easily annoyed or irritable: 0 = Not at all Feeling afraid as if something awful might happen: 0 = Not at all Total SWATHI-7 score (0-4 normal; 5-9 mild; 10-14 moderate; 15-21 severe): 0 Source: Developed by Drs. Jack Webster, Renetta Parker, Fan Dotson and colleagues, with an educational nuris from [employer]. SWATHI-7 Assessment Billing SWATHI-7 Assessment Tool: SWATHI-7 Assessment 94545 Review of Systems Const All systems reviewed & are unremarkable except as noted in HPI and below Eyes Reports no additional complaints, Denies change in vision and Denies other visual disturbances Card Denies chest pain at rest, Denies chest pain with activity, Denies edema, Denies irregular heart rhythm, Denies claudication, Denies dyspnea, Denies dyspnea on exertion, Denies orthopnea, Denies paroxysmal nocturnal dyspnea and Denies slow heart rate Resp Denies cough, Denies dyspnea and Denies dyspnea on exertion GI Denies abdominal pain, Denies change in bowel habits, Denies excessive flatus, Denies nausea and Denies vomiting Denies urinary incontinence, Denies urinary hesitancy and Denies urinary urgency Musc Denies abnormal gait, Denies atrophy, Denies deformity and Denies limited range of motion Skin/Breast Denies bleeding lesions, Denies changing lesions and Denies rash Neuro Denies abnormal gait, Denies behavioral changes, Denies confusion and Denies lack of coordination Psych Denies behavioral changes and Denies confusion Physical exam (Primary Care) Vital Signs: Last Vital Signs Pulse 78 02/14/23 09:22 BP 108/70 02/14/23 09:22 Pulse Ox 98 02/14/23 09:22 Oxygen Delivery Method Room Air 02/14/23 09:22 BMI result Body Mass Index 31.8 Tobacco/Smoking Status: Tobacco use Status Tobacco use date assessed 02/14/23 02/14/23 09:24 Patient Tobacco Use Status Never used Tobacco 02/14/23 09:24 e-Cigarette/Vaping Use Never Used 02/14/23 09:24 PHQ-9: PHQ-9 Score PHQ-9: Total score 7 02/14/23 09:44 Depression Screening Interpretation: Positive Depression Screening Follow-up: Existing condition and In treatment Thrive Assessment: Date of Thrive Assessment Date Thrive assessed 02/14/23 02/14/23 09:24 Currently or been in a relationship where the following occur: no concerns reported Const General: No confusion Orientation/consciousness: patient oriented x3 and No confusion HENMT Head: Yes normal to inspection, Yes normocephalic and Yes atraumatic Ears: external ears normal Eyes General: appearance normal, both eyes and all related structures Eyelids: Yes eyelids normal Conjunctivae: conjunctivae normal Neck Neck: Yes normal visual inspection and Yes supple Resp Effort & Inspection: normal respiratory effort Auscultation: clear to auscultation bilaterally Cardio Jugular venous distension: no JVD Rate: regular rate Rhythm: regular rhythm Heart sounds: S1 normal heart sound present and S2 normal heart sound present GI Inspection: Yes normal to inspection Palpation (GI): Soft to palpation and nontender Auscultation: normal bowel sounds Skin General skin exam: no rashes or lesions noted Neuro General: patient oriented x3, no focal motor deficits and No confusion Extrem General: Yes full ROM Psych Appearance: grossly normal Results AMB Hemoglobin A1c AMB Hemoglobin A1c 10.7 % Last Edit by Radha Kurtz on 02/14/23 09:34 Results Reviewed Results Reviewed: Laboratory Last Values Hgb A1c (Clinic) 10.7 % (4.0-6.0) H 02/14/23 09:24 Assessment and Plan Assessment & Plan (1) Physical exam: Code(s): Z00.00 - Encounter for general adult medical examination without abnormal findings Plan: Repeat in a year. 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 A1c goal is equal or less than 7%. (3) longterm (current) use of insulin: Code(s): Z79.4 - longterm (current) use of insulin Plan: Increase long-acting insulin. (4) Mild recurrent major depression: Code(s): F33.0 - Major depressive disorder, recurrent, mild Plan: Continue bupropion. Orders: Orders AMB Hemoglobin A1c Today Z13.9 - Encounter for screening, unspecified Microalbumin, Random (w Creat) Today E11.9 - Type 2 diabetes mellitus without complications Vitamin D 25-OH Total Today E55.9 - Vitamin D deficiency, unspecified Vitamin B12 and Folate Today E53.8 - Deficiency of other specified B group vitamins Comprehensive [place]. 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 Lipid Panel Today E78.5 - Hyperlipidemia, unspecified Medications: New [vaniqua 11.5 % cram] As directed 1 ea 0RF Changed From insulin degludec (Tresiba FlexTouch U-200 insulin) 80 units (0.4 mL) subcut BEDTIME 90 days 36 mL 6RF E11.65 - Type 2 diabetes mellitus with hyperglycemia, Z79.4 - longterm (current) use of insulin To insulin degludec (Tresiba FlexTouch U-200 insulin) 83 units (0.415 mL) subcut BEDTIME 90 days 37.35 mL 6RF E11.65 - Type 2 diabetes mellitus with hyperglycemia, Z79.4 - 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
== END 2023-02-14 10:02 | disposition home or self-care (01) ==
PROVIDERS: PCP Internal Medicine; Visit Provider Internal Medicine
DX: Z00.00 Encounter for general adult medical examination without abnormal findings (principal); E11.65 Type 2 diabetes mellitus with hyperglycemia; Z79.4 Long term (current) use of insulin; F33.0 Major depressive disorder, recurrent, mild
CPT/HCPCS: 83036; 99396

== ENCOUNTER 2023-03-09 13:56 | Outpatient (AMB) | payer OTHER, SELFPAY ==
[2023-03-09 14:12] VITALS: BP 128/72; BMI 32.2
--- NOTE | 2023-03-09 14:12 | A.OFFVIS_ITS ---
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 Information Interpreted: clinical only Director Of Product Design: Director Of Product Design Present Allergies metformin Allergy (Intermediate, Verified 03/09/23 14:22) stomach upset dulaglutide [From Trulicity] Adverse Reaction (Severe, Verified 03/09/23 14:22) blurry vision, abdominal pain insulin glargine [From Toujeo Max U-300 SoloStar] Adverse Reaction (Intermediate, Verified 03/09/23 14:22) Dizziness cats, dogs Allergy (Intermediate, Uncoded 03/09/23 14:22) Agitated many environmental allergies Allergy (Intermediate, Uncoded 03/09/23 14:22) Flushing Medication List - Last Reconciled 03/09/23 by Tana Anderson CNM blood sugar diagnostic (Foodorouch Verio test strips) use 1 strip to test blood sugar four times a day bupropion HCl 150 mg PO QAM 90 days cetirizine 10 mg PO DAILY 30 days epinephrine IM famotidine (Pepcid) 20 mg PO BID flash glucose sensor (FreeStyle Vonnie 14 Day Sensor kit) As directed insulin aspart U-100 (Novolog FlexPen U-100 Insulin aspart) 20 units (0.2 mL) subcut TID 30 days insulin degludec (Tresiba FlexTouch U-200 insulin) 83 units (0.415 mL) subcut BEDTIME 90 days ketotifen fumarate 0.025%(0.035%) 0 drps ophthalmic (eye) lancets (VoluBillTouch Delica Plus Lancet) one four times a day minoxidil 2% 1 mL topical BID 30 days olopatadine 0.2% (Pataday Once Daily Relief) 1 drp ophthalmic (eye) BEDTIME 15 days pen needle, diabetic (BD Ultra-Fine Short Pen Needle) As directed pen needle, diabetic (Comfort EZ Pen [place]) Use 1 pen needle four a day polyethylene glycol 3350 (Miralax) 17 grams PO DAILY semaglutide 1 mg (0.75 mL) subcut QWEEK 30 days simethicone (Gas Relief (simethicone)) 125 mg PO TID-QID PRN simvastatin 40 mg PO BEDTIME 90 days terazosin 2 mg (2 x 1 mg) PO BEDTIME 90 days valacyclovir 500 mg PO BID [vaniqua 11.5 % cram As directed] Post menopausal: Yes Patient : No Do you need a note to return to daycare/school/sports/work: No HPI 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 SHE HAS SEEN OTHER PROVIDERS MORE RECENTLY. SHE HAS HAD LOTS OF MEDICAL APPOINTMENTS RECENTLY SHE SAID HER BLOOD SUGARS ARE NOT IN GOOD CONTROL. SHE SAID SHE HAD A MAMMOGRAM 2 DAYS AGO BUT SHE NEEDS TO HAVE ANOTHER LOOK AND THAT IS SCHEDULED FOR THE WEEK OF MARCH AT [facility]. SHE IS COMPLAINING OF VAGINAL ITCHING WHICH SHE THINKS IS BECAUSE OF HER BLOOD SUGARS AND SHE WAS ASKING FOR A REFILL A STEROID CREAM THAT HAD BEEN GIVEN TO HER BY SOMEONE IN THE PAST. SHE TELLS ME HER BLOOD SUGARS ARE NOT BAD IN THE MORNING THEY ARE MAYBE 200 BUT SOMETIMES THEY CAN BE 400. [facility] Medical History Chronic idiopathic constipation Epistaxis Overflow incontinence of urine detention (current) use of insulin Obesity due to excess calories DM2 (diabetes mellitus, type 2) Urge urinary incontinence Lumbar pain Mild recurrent major depression Obesity (BMI 30-39.9) Hot flashes Pterygium of both eyes Depression with anxiety Daytime sleepiness GERD (gastroesophageal reflux disease) Polyarthralgia Left hand pain Obese Pure hypercholesterolemia Diabetes mellitus Surgical History Cataract History of ectopic Family History Father Diabetes Hypertension Mother Diabetes Hypertension Family/Other FH: mental illness Brother No problems noted. Sister No problems noted. Social History Housing: Apartment Alcohol intake: current Alcohol intake frequency: holidays/special occasions only Alcohol type: wine Patient Tobacco Use Status: Never used Tobacco e-Cigarette/Vaping Use: Never Used Second Hand Smoke Exposure: No Patient : No service: No Current occupational status: unemployed Cognitive needs: No Hearing needs: No Vision needs: No Female Reproductive History Menstrual Age of Menarche: 10 Duration of menses: 3-5 days Total pregnancies: 3 Full term: 0 Date of last pap smear: 06/03/21 (neg.) History of abnormal pap smear: Yes (2020+hpv) Physical Exam Vital Signs: Last Vital Signs BP 128/72 03/09/23 14:12 BMI result Body Mass Index 32.2 Const General: comfortable, no acute distress, well developed and alert Nutritional Appearance: average body habitus Orientation/consciousness: patient oriented x3 Limitations: no limitations HEENT Head: Yes normocephalic Eyes Other: Her sclera are very reddened she says they are not bothering her and they are always like that she said they have been like that especially since she had cataract surgery 2 months ago. She has problems with her vision since then and she needs glasses for reading that her insurance will not pay for. Neck Neck: Yes normal visual inspection Chest Other: Masses palpated patient has have what appears to be a bruise in the right breast that she says is scarring from a nacido . She says she has these down on her vulva and mons pubis as well and she blames them on her high sugars. Chest palpation & inspection: normal inspection of the chest Breast/axilla inspection: normal inspection of the breasts and normal inspection of the axillae Breast/axilla palpation: normal palpation of the breasts and normal palpation of the axillae Resp Effort & Inspection: normal respiratory effort GI Inspection: Yes normal to inspection, No Abdominal wall edema and No distended Palpation (GI): Soft to palpation and nontender Other: Vaginal introitus consistent with menopausal atrophic changes and vaginal mucosa and labia with Co sh is somewhat reddened there is curdy white discharge with slight greenish tinge in vaginal vault consistent with yeast curds. Cervix pink mobile nonfriable uterus midposition nontender adnexa nontender good tone with Kegel. General: Yes bladder normal to palpation External Female Exam: normal external appearance and normal appearance of the urethra Speculum Exam - Vagina: normal appearance of the vagina, normal palpation and normal vaginal discharge Speculum Exam - Cervix: normal appearance of the cervix, normal palpation and nontender Bimanual exam- vagina & uterus: normal bimanual exam, normal palpation, uterine size normal, bladder normal to palpation, consistency normal, normal palpation, uterine mobility normal, uterine shape normal, No Cervical tenderness present, non-tender and no cervical motion tenderness Bimanual Exam- Adnexa, other: normal adnexae, no masses, normal and No adnexal tenderness Neuro General: patient oriented x3 Assessment & Plan Assessment & Plan (1) Women's annual routine gynecological examination: Code(s): Z01.419 - Encounter for gynecological examination (general) (routine) without abnormal findings (2) Obesity due to excess calories: Code(s): E66.09 - Other obesity due to excess calories (3) DM2 (diabetes mellitus, type 2): Code(s): E11.9 - Type 2 diabetes mellitus without complications Qualifiers: Diabetes mellitus care home insulin use: with terminal system operator use Diabetes mellitus complication status: with hyperglycemia Qualified Code(s): E11.65 - Type 2 diabetes mellitus with hyperglycemia; Z79.4 - detention (current) use of insulin (4) Uncontrolled diabetes mellitus with hyperglycemia: Comment: Patient cites being on multiple medications. She also says she loves to eat sweet things and watch TV with her mother and does not go walking Code(s): E11.65 - Type 2 diabetes mellitus with hyperglycemia (5) Yeast infection of the vagina: Comment: Exacerbated by elevated blood sugars.... Code(s): B37.31 - Acute candidiasis of vulva and vagina Plan -----Discussed in this visit the following: healthy balanced diet, regular and consistent exercise, getting recommended health screens, doing the best she can for her particular health concerns, kegel exercises, pap smear screening and followup recommendations, mammography screening and SBE, normal changes in cycles in her life stage--- . Discussed her follow-up with her mammogram it is good that she is getting the follow-up testing that is needed. She may follow-up with whenever she wishes I did encourage follow-up with her eye doctor because of her eyes being so reddened. Education about yeast and elevated blood sugar was done she did know the connection already because that is when she has her symptoms the worst when her blood sugars are elevated.---I reviewed her symptoms in detail, and the contributing factors that lead to growth of yeast including warm dark spaces, lack of air to body cavities and mucosal membrane, and elevated blood sugars. I reviewed what she can do to make things better in particular using cotton underwear, non-use of panty liners, allowing air to her vulva at night if at all possible. Use of cotton underwear that is not tight fitting was encouraged. Plain cool water rinsing/showering to area may be comforting. I reviewed use of the medications including Diflucan and cream as directed. --I reviewed that the most important thing at her case is to get her diabetes and her blood sugar under good control, and I encouraged her to re-double her efforts in this regard, and to work with her primary care provider in adjusting any medication dosages if necessary, and following their recommendations for checking her blood sugar, following dietary recommendations, exercise goals, and trying to get things in control. I stressed that while a yeast infection is very very uncomfortable, and can be very problematic, it can be indicative of diabetes that is not under good control and could lead to further challenges for her health especially regarding blood vessels and kidney function and heart etc. So any efforts to get her diabetes under better control, may help more than just her yeast symptoms. In her case because of her very elevated sugars and her multiple health concerns emanating from her diabetes I very much encouraged her to consider trying to eat a little bit healthier and to consider going for walks her mother. 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 She likes the cream for vaginal issues and I gave her multiple refills on the Monistat and told her she could use it for 3-5 days if necessary for vaginal itching or full 7 days or possibly even longer but if she needed to use it longer and her blood sugars were elevated she should really be considering using the Diflucan. She says she is taking so many pills already she does not want to take more pills and this is definitely understandable I encouraged instead trying to improve the process by having lower blood sugar so she has not feeding the yeast in addition discussed the other health concerns from her diabetes. Orders: Orders Pap Smear Today Z01.419 - Encounter for gynecological examination (general) (routine) without abnormal findings CT NG by PCR Today Z01.419 - Encounter for gynecological examination (general) (routine) without abnormal findings Bacterial Vaginosis Panel Today Z20.2 - Contact with and (suspected) exposure to infections with a predominantly sexual mode of transmission Medications: New miconazole nitrate 2% (Miconazole-7) May use whenever you have itching from yeast infection use for 3-5 days up to 7 days 1 appful vaginal BEDTIME 7 days 45 grams 5RF fluconazole may repeat second dose 72 hrs after first dose if symptoms persist, CONSIDER USING WHEN VAGINAL ITCHING IS SEVERE AND BLOOD SUGARS ARE OUT OF CONTROL. 150 mg PO Q3D 2 doses 2 tabs 2RF Coding Level of Care Code Est Pt Prev Care 40-64y(24035) Diagnoses Women's annual routine gynecological examination Z01.419 Obesity due to excess calories E66.09 Type 2 diabetes mellitus with hyperglycemia, with long-term current use of insulin E11.65; Z79.4 Diabetes mellitus terminal system operator insulin use: with terminal system operator use Diabetes mellitus complication status: with hyperglycemia Uncontrolled diabetes mellitus with hyperglycemia E11.65 Yeast infection of the vagina B37.31
== END 2023-03-09 15:19 | disposition home or self-care (01) ==
LOC: HO.HWSM 13:56
PROVIDERS: PCP Internal Medicine; Visit Provider Advanced Practice Midwife
DX: Z01.419 Encounter for gynecological examination (general) (routine) without abnormal findings (principal); E66.09 Other obesity due to excess calories; E11.65 Type 2 diabetes mellitus with hyperglycemia; Z79.4 Long term (current) use of insulin; B37.31 Acute candidiasis of vulva and vagina
CPT/HCPCS: 99396

== ENCOUNTER 2023-03-09 13:56 | Outpatient (REF) | payer OTHER, SELFPAY ==
[2023-03-10 04:52] LABS: CT PCR NOT DETECTED (Not Detect.); NG PCR NOT DETECTED (Not Detect.)
[2023-03-10 09:29] LABS: BV Int Neg Control Negative (Negative); BV Int Pos Control Positive (Positive)
[2023-03-18 08:13] LABS: HPV 16 RNA NOT DETECTED (NOT DETECTED); HPV mRNA E6/E7 rflx Detected (Not Detected)
== END 2023-03-09 13:57 | disposition home or self-care (01) ==
LOC: HO.LAB 13:56
PROVIDERS: PCP Internal Medicine; Visit Provider Advanced Practice Midwife
DX: Z01.419 Encounter for gynecological examination (general) (routine) without abnormal findings (principal); N89.8 Other specified noninflammatory disorders of vagina; Z11.3 Encounter for screening for infections with a predominantly sexual mode of transmission; Z11.51 Encounter for screening for human papillomavirus (HPV); Z20.2 Contact with and (suspected) exposure to infections with a predominantly sexual mode of transmission
CPT/HCPCS: 0353U; 87480; 87510; 87624; 87625; 87660; 88142

== ENCOUNTER 2023-04-19 08:49 | Outpatient (AMB) | payer OTHER, SELFPAY ==
--- NOTE | 2023-04-19 09:19 | A.OFFVIS_ITS ---
Intake Vital Signs 04/19/23 09:20 Height 5 ft 2 in Weight 176 lb BMI 32.2 BP 116/70 Intake Visit Reasons: coposcopy Orbitread Operator Required: Yes Orbitread Operator Language: Interactive Producer Name: Ginger Lancaster Information Interpreted: non-clinical & clinical Rf Technician: Rf Technician Present (Ginger) Allergies metformin Allergy (Intermediate, Verified 04/19/23 09:23) stomach upset dulaglutide [From Trulicity] Adverse Reaction (Severe, Verified 04/19/23 09:23) blurry vision, abdominal pain insulin glargine [From Toujeo Max U-300 SoloStar] Adverse Reaction (Intermediate, Verified 04/19/23 09:23) Dizziness cats, dogs Allergy (Intermediate, Uncoded 04/19/23 09:23) Agitated many environmental allergies Allergy (Intermediate, Uncoded 04/19/23 09:23) Flushing Is last menstrual period known: No Patient : No HPI HPI Comments History of Present Illness Details Presenting for colposcopy for ascus/HPV E6/E7 positive, HPV 16/18/45 negative COUNT INCLUDES THE [facility] Medical History Chronic idiopathic constipation Epistaxis Overflow incontinence of urine penitentiary (current) use of insulin Obesity due to excess calories DM2 (diabetes mellitus, type 2) Urge urinary incontinence Lumbar pain Mild recurrent major depression Obesity (BMI 30-39.9) Hot flashes Pterygium of both eyes Depression with anxiety Daytime sleepiness GERD (gastroesophageal reflux disease) Polyarthralgia Left hand pain Obese Pure hypercholesterolemia Diabetes mellitus Surgical History Cataract History of ectopic Family History Father Diabetes Hypertension Mother Diabetes Hypertension Family/Other FH: mental illness Brother No problems noted. Sister No problems noted. Social History Housing: Apartment Alcohol intake: current Alcohol intake frequency: holidays/special occasions only Alcohol type: wine Patient Tobacco Use Status: Never used Tobacco e-Cigarette/Vaping Use: Never Used Second Hand Smoke Exposure: No Patient : No service: No Current occupational status: unemployed Cognitive needs: No Hearing needs: No Vision needs: No Female Reproductive History Menstrual Age of Menarche: 10 control method: none Total pregnancies: 3 Ab spontaneous: 3 Review of Systems Const All systems reviewed & are unremarkable except as noted in HPI and below Reports as per HPI and Reports no additional complaints GI Reports no additional complaints Reports no additional complaints Physical Exam Vital Signs: Last Vital Signs BP 116/70 04/19/23 09:20 BMI result Body Mass Index 32.2 Office Procedures Colposcopy Before the procedure was started discussed with the patient the procedure, alternatives & all the risks associated with the procedure (bleeding, infection, injury to vagina, bladder, vessels, possible need for transfusion with all its risks) then patient signed the consent Pap smear = ascus/HPV positive Speculum inserted, acetic acid used Colposcopy done Transformation zone seen, acetowhite lesions identified at 4+1 o?clock, cervical biopsies taken from 4+1 o?clock, ECC done afterwards. Vaginoscopy of the upper vagina showed no evidence of any aceto-white lesions Monsel solution used for hemostasis. The patient tolerated well . At the end the patient was instructed to call if temp>100.4, abdominal pain, n/v, bleeding; The patient was given the following instructions: nothing per vagina, no intercourse or bath tub use. All questions answered the patient verbalized understanding. Instructed the patient to make an appointment in 2 weeks for follow-up This note was generated with a voice recognition program. Some errors may have been overlooked during the review of this note. Sometimes these errors may affect the content or meaning of a given sentence. [id number] of cervix including upper vagina with biopsy and ECC Procedure code (CPT) selection complete Assessment & Plan Assessment & Plan (1) ASCUS with positive high risk HPV cervical: Code(s): R87.610 - Atypical squamous cells of undetermined significance on cytologic smear of cervix (ASC-US); R87.810 - Cervical high risk human papillomavirus (HPV) DNA test positive Plan: Discussed with the patient the result of her abnormal pap, its significance, risk of progression, persistence, and regression. the false positive/negative rate of a Pap smear as a screening test in detecting cervical cancer and the indication for a diagnostic test -colposcopy, biopsy, endocervical curettage. The patient verbalized understanding and agreed with the plan, all questions answered. Colposcopy done, see procedure note Orders: Orders AMB Colposcopy Today R87.610 - Atypical squamous cells of undetermined significance on cytologic smear of cervix (ASC-US), R87.810 - Cervical high risk human papillomavirus (HPV) DNA test positive Coding Level of Care Code Procedure Only Diagnoses ASCUS with positive high risk HPV cervical R87.610; R87.810 CPT Codes Colposcopy - CPT: 18912-Ncmtubqhb of cervix including upper vagina with biopsy and ECC ([id number])
[2023-04-19 09:20] VITALS: BP 116/70; BMI 32.2
== END 2023-04-19 09:42 | disposition home or self-care (01) ==
LOC: HO.HWS 08:50
PROVIDERS: PCP Internal Medicine; Visit Provider Obstetrics & Gynecology
DX: R87.610 Atypical squamous cells of undetermined significance on cytologic smear of cervix (ASC-US) (principal); R87.810 Cervical high risk human papillomavirus (HPV) DNA test positive
CPT/HCPCS: 57454

== ENCOUNTER 2023-04-19 08:49 | Outpatient (REF) | payer MEDICARE, MEDICAID, SELFPAY | END 2023-04-19 08:50 | disposition home or self-care (01) | LOC: HO.LNP 08:49 | PROVIDERS: PCP Internal Medicine; Visit Provider Obstetrics & Gynecology | DX: R87.610 Atypical squamous cells of undetermined significance on cytologic smear of cervix (ASC-US) (principal); R87.810 Cervical high risk human papillomavirus (HPV) DNA test positive | CPT/HCPCS: 57454; 88305 ==

== ENCOUNTER 2023-05-30 07:27 | Outpatient (AMB) | payer MEDICARE, SELFPAY ==
--- NOTE | 2023-05-30 07:31 | A.OFFVIS_ITS ---
Intake Vital Signs 05/30/23 07:32 Height 5 ft 2 in Weight 174 lb 2.643 oz BMI 31.9 BP 120/74 Intake Visit Reasons: Colpo results Freelance Displayer Required: Yes Freelance Displayer Language: Subgrade Roller Operator Name: Ginger GILLESPIE Information Interpreted: non-clinical & clinical Accompanied by: Self / Same As Patient Allergies metformin Allergy (Intermediate, Verified 05/30/23 07:35) stomach upset dulaglutide [From Trulicity] Adverse Reaction (Severe, Verified 05/30/23 07:35) blurry vision, abdominal pain insulin glargine [From Toujeo Max U-300 SoloStar] Adverse Reaction (Intermediate, Verified 05/30/23 07:35) Dizziness cats, dogs Allergy (Intermediate, Uncoded 05/30/23 07:35) Agitated many environmental allergies Allergy (Intermediate, Uncoded 05/30/23 07:35) Flushing Post menopausal: Yes HPI HPI Comments History of Present Illness Details Presenting post colpo for follow-up. The patient is doing well with no complaints. The pathology showed the following: A. Endocervix, curettage: Fragments of inflamed endocervical and squamous epithelium with reactive changes. B. Cervix, 1 o'clock, biopsy: - Mildly inflamed squamous mucosa with r eactive changes. - No endocervical epithelium identified. C. Cervix, 4 o'clock, biopsy: - Inflamed squamous mucosa with reactive changes. - No endocervical epithelium identified. COMMENT: The findings are concordant with the patient's recent Pap/cytology specimen ([id number]; ASCUS with positive HPV) - slide reviewed [facility] Medical History Chronic idiopathic constipation Epistaxis Overflow incontinence of urine manager intermediate (current) use of insulin Obesity due to excess calories DM2 (diabetes mellitus, type 2) Urge urinary incontinence Lumbar pain Mild recurrent major depression Obesity (BMI 30-39.9) Hot flashes Pterygium of both eyes Depression with anxiety Daytime sleepiness GERD (gastroesophageal reflux disease) Polyarthralgia Left hand pain Obese Pure hypercholesterolemia Diabetes mellitus Surgical History Cataract History of ectopic Family History Father Diabetes Hypertension Mother Diabetes Hypertension Family/Other FH: mental illness Brother No problems noted. Sister No problems noted. Social History Housing: Apartment Alcohol intake: current Alcohol intake frequency: holidays/special occasions only Alcohol type: wine Patient Tobacco Use Status: Never used Tobacco e-Cigarette/Vaping Use: Never Used Second Hand Smoke Exposure: No service: No Current occupational status: unemployed Cognitive needs: No Hearing needs: No Vision needs: No Female Reproductive History Menstrual Age of Menarche: 10 Review of Systems Const All systems reviewed & are unremarkable except as noted in HPI and below Reports as per HPI and Reports no additional complaints GI Reports no additional complaints Reports no additional complaints Physical Exam Vital Signs: Last Vital Signs BP 120/74 05/30/23 07:32 BMI result Body Mass Index 31.9 Assessment & Plan Assessment & Plan (1) ASCUS with positive high risk HPV cervical: Code(s): R87.610 - Atypical squamous cells of undetermined significance on cytologic smear of cervix (ASC-US); R87.810 - Cervical high risk human papillomavirus (HPV) DNA test positive Plan: Discussed with the patient the pathology results of the colposcopy biopsies & endocervical curettage ( negative). Discussed with the patient the sensitivity specificity, positive and negative predictive value in detecting cervical cancer in addition discussed the regression, persistence and progression rates. Recommended co-testing in 12 months, if cytology and or HPV are abnormal will proceed was colposcopy biopsy and endocervical curettage. Instructions given to the patient to schedule a co test appointment in 1 year. All questions answered the patient verbalized understanding. Coding Level of Care Code Est Pt Level 3 (24498) Diagnoses ASCUS with positive high risk HPV cervical R87.610; R87.810
[2023-05-30 07:32] VITALS: BP 120/74; BMI 31.9
== END 2023-05-30 07:40 | disposition home or self-care (01) ==
PROVIDERS: PCP Internal Medicine; Visit Provider Obstetrics & Gynecology
DX: R87.610 Atypical squamous cells of undetermined significance on cytologic smear of cervix (ASC-US) (principal); R87.810 Cervical high risk human papillomavirus (HPV) DNA test positive
CPT/HCPCS: 99213

== ENCOUNTER → 2023-05-30 07:27 | Outpatient (BNVA) | payer MEDICARE, SELFPAY | PROVIDERS: PCP Internal Medicine; Visit Provider Obstetrics & Gynecology | DX: R87.610 Atypical squamous cells of undetermined significance on cytologic smear of cervix (ASC-US) (principal); R87.810 Cervical high risk human papillomavirus (HPV) DNA test positive | CPT/HCPCS: 99212 ==

== ENCOUNTER 2023-09-12 11:33 | Outpatient (AMB) | payer OTHER, SELFPAY ==
--- NOTE | 2023-09-12 12:25 | A.OFFPC_ITS ---
Vital Signs 09/12/23 12:26 Height 5 ft 2 in Weight 161 lb BMI 29.4 BP 118/74 Blood Pressure Location Lt brachial Position Sitting Intake Visit Reasons: DM Intake Note: Patient here for a follow up DM Special Education Curriculum Specialist Required: No Accompanied by: Mother Allergies metformin Allergy (Intermediate, Verified 09/12/23 12:29) stomach upset dulaglutide [From Trulicity] Adverse Reaction (Severe, Verified 09/12/23 12:29) blurry vision, abdominal pain insulin glargine [From Toujeo Max U-300 SoloStar] Adverse Reaction (Intermediate, Verified 09/12/23 12:29) Dizziness cats, dogs Allergy (Intermediate, Uncoded 09/12/23 12:29) Agitated many environmental allergies Allergy (Intermediate, Uncoded 09/12/23 12:29) Flushing Medication List - Last Reconciled 09/12/23 by Tammy Swanson MD blood sugar diagnostic ([employer] [place] Verio test strips) use 1 strip to test blood sugar four times a day cetirizine 10 mg PO DAILY 30 days epinephrine IM famotidine (Pepcid) 20 mg PO BID flash glucose sensor (FreeStyle Vonnie 14 Day Sensor kit) As directed insulin aspart U-100 (Novolog FlexPen U-100 Insulin aspart) 10 units subcut TID insulin degludec (Tresiba FlexTouch U-200 insulin) 70 units subcut BEDTIME ketotifen fumarate 0.025%(0.035%) 0 drps ophthalmic (eye) lancets (OneTouch Delica Plus Lancet) one four times a day miconazole nitrate 2% (Miconazole-7) 1 appful vaginal BEDTIME 7 days pen needle, diabetic (BD Ultra-Fine Short Pen Needle) As directed pen needle, diabetic (Comfort EZ Pen [place]) Use 1 pen needle four a day semaglutide 1 mg (0.75 mL) subcut QWEEK 30 days simethicone (Gas Relief (simethicone)) 125 mg PO TID-QID PRN simvastatin 40 mg PO BEDTIME 90 days terazosin 2 mg (2 x 1 mg) PO BEDTIME 90 days valacyclovir 500 mg PO BID [vaniqua 11.5 % cram As directed] Tobacco use date assessed: 02/14/23 Dental Screening Dental Screen Date: 02/14/23 HPI HPI Comments History of Present Illness Details This is a 53-year-old female with diabetes mellitus type 2 on long-term current use of insulin, pure hypercholesterolemia, GERD and mild recurrent major depression that comes accompanied by mother for follow-up on her conditions. A1c not on goal and I will increase long-acting insulin from 70 units to 75 units. I will also increase Ozempic to 2 mg. She has reported no side effects. Lipid panel will be order and her LDL goal should be less than 70. GERD stable with famotidine. Depression has been in remission. I offer endocrinology referral for her diabetes and she declined it. [facility] Medical History (Updated 09/12/23 @ 12:42 by Tammy Swanson MD) Chronic idiopathic constipation Epistaxis Overflow incontinence of urine FPC (current) use of insulin Obesity due to excess calories DM2 (diabetes mellitus, type 2) Urge urinary incontinence Lumbar pain Mild recurrent major depression Obesity (BMI 30-39.9) Hot flashes Pterygium of both eyes Depression with anxiety Daytime sleepiness GERD (gastroesophageal reflux disease) Polyarthralgia Left hand pain Obese Pure hypercholesterolemia Diabetes mellitus Surgical History Cataract History of ectopic Family History Father Diabetes Hypertension Mother Diabetes Hypertension Family/Other FH: mental illness Brother No problems noted. Sister No problems noted. Social History Housing: Apartment Alcohol intake: current Alcohol intake frequency: holidays/special occasions only Alcohol type: wine Patient Tobacco Use Status: Never used Tobacco e-Cigarette/Vaping Use: Never Used Second Hand Smoke Exposure: No service: No Current occupational status: unemployed Cognitive needs: No Hearing needs: No Vision needs: No Female Reproductive History Menstrual Age of Menarche: 10 Questionnaire Thrive Questionnaire Date Thrive assessed: 02/14/23 SWATHI-7 AMB Questionnaire SWATHI-7 Date SWATHI - 7 assessed: 02/14/23 Source: Developed by Drs. Jack Webster, Renetta Parker, Fan Dotson and colleagues, with an educational nuris from [employer] Review of Systems Const All systems reviewed & are unremarkable except as noted in HPI and below Card Denies chest pain at rest, Denies chest pain with activity, Denies edema, Denies irregular heart rhythm, Denies claudication, Denies orthopnea, Denies paroxysmal nocturnal dyspnea and Denies slow heart rate Physical exam (Primary Care) Vital Signs: Last Vital Signs BP 118/74 09/12/23 12:26 BMI result Body Mass Index 29.4 Tobacco/Smoking Status: Tobacco use Status Tobacco use date assessed 02/14/23 09/12/23 12:29 Patient Tobacco Use Status Never used Tobacco 09/12/23 12:29 e-Cigarette/Vaping Use Never Used 09/12/23 12:29 Thrive Assessment: Date of Thrive Assessment Date Thrive assessed 02/14/23 09/12/23 12:29 Resp Effort & Inspection: normal respiratory effort Auscultation: clear to auscultation bilaterally Cardio Jugular venous distension: no JVD Rate: regular rate Rhythm: regular rhythm Heart sounds: S1 normal heart sound present and S2 normal heart sound present Extrem General: Yes full ROM Results AMB Hemoglobin A1c AMB Hemoglobin A1c 14.0 % Last Edit by VERNA Varghese on 09/12/23 12: 29 Assessment and Plan Assessment & Plan (1) Uncontrolled diabetes mellitus with hyperglycemia: Comment: Patient cites being on multiple medications. She also says she loves to eat sweet things and watch TV with her mother and does not go walking Code(s): E11.65 - Type 2 diabetes mellitus with hyperglycemia Qualifiers: Diabetes mellitus type: type 2 Qualified Code(s): E11.65 - Type 2 diabetes mellitus with hyperglycemia Plan: Continue short-acting insulin. Increase long-acting insulin from 70 to 75 units. Increase Ozempic to 2 mg. A1c goal is equal or less than 7%. (2) Mild recurrent major depression: Code(s): F33.0 - Major depressive disorder, recurrent, mild Plan: In remission. (3) GERD (gastroesophageal reflux disease): Code(s): K21.9 - Gastro-esophageal reflux disease without esophagitis Qualifiers: Esophagitis presence: esophagitis presence not specified Qualified Code(s): K21.9 - Gastro-esophageal reflux disease without esophagitis Plan: Continue famotidine. (4) Pure hypercholesterolemia: Code(s): E78.00 - Pure hypercholesterolemia, unspecified Plan: Continue statins. Repeat lipid panel. LDL goal is less than 70. 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 From insulin aspart U-100 (Novolog FlexPen U-100 Insulin aspart) or as directed 10 units subcut TID E11.65 - Type 2 diabetes mellitus with hyperglycemia, Z79.4 - 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 To insulin aspart U-100 (Novolog FlexPen U-100 Insulin aspart) or as directed 10 units (0.1 mL) subcut TID 90 days 27 mL 3RF E11.65 - Type 2 diabetes mellitus with hyperglycemia, Z79.4 - FPC (current) use of insulin Discontinued semaglutide Discontinued Reason: Patient Completed Course 1 mg (0.75 mL) subcut QWEEK 30 days 3.75 mL 1RF E11.65 - Type 2 diabetes mellitus with hyperglycemia, Z79.4 - 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
[2023-09-12 12:26] VITALS: BP 118/74; BMI 29.4
== END 2023-09-12 12:40 | disposition home or self-care (01) ==
PROVIDERS: PCP Internal Medicine; Visit Provider Internal Medicine
DX: E11.65 Type 2 diabetes mellitus with hyperglycemia (principal); F33.0 Major depressive disorder, recurrent, mild; K21.9 Gastro-esophageal reflux disease without esophagitis; E78.00 Pure hypercholesterolemia, unspecified; Z79.4 Long term (current) use of insulin
CPT/HCPCS: 83036; 99214; G2211

== ENCOUNTER 2023-09-12 12:54 | Outpatient (REF) | payer OTHER, SELFPAY ==
[2023-09-12 14:48] LABS: Vitamin D 25-OH Total 52.9 ng/mL (>30)
[2023-09-12 14:49] LABS: Alanine Aminotransferase 27 U/L (0-31); Albumin Level 4.6 g/dL (3.5-5.0); Alkaline Phosphatase 89 U/L (39-117); Anion Gap 14 (12-20); Aspartate Amino Transferase 19 U/L (5-31); Bilirubin Total 0.5 mg/dL (0.0-1.0); Blood Urea Nitrogen 11 mg/dL (9-16); Calcium 10.3 mg/dL (8.4-10.2); Carbon Dioxide 26 mmol/L (22-29); Chloride 98 mmol/L (96-108); Cholesterol 296 mg/dL (<200); Estimated Glomerular Filt Rate > 60; Glucose Fasting 357 mg/dL (60-99); HDL Cholesterol 42 mg/dL (>40); LDL Cholesterol Calculated 194 mg/dL (<100); Potassium 4.5 mmol/L (3.3-5.1); Sodium 133 mmol/L (135-145); Total Protein 8.5 g/dL (6.5-8.0); Triglycerides 302 mg/dL (<150)
[2023-09-12 15:03] LABS: Folate 14.1 ng/mL (> or = 4.0); Vitamin B12 > 2000 pg/mL (200-900)
[2023-09-12 15:06] LABS: Creatinine Urine 98.61 mg/dL; Microalbum/Creatinine Ratio Ur 43.6 ug/mg cr (<30)
== END 2023-09-12 12:55 | disposition home or self-care (01) ==
LOC: HO.LAB 12:54
PROVIDERS: PCP Internal Medicine; Visit Provider Internal Medicine
DX: E11.65 Type 2 diabetes mellitus with hyperglycemia (principal); E53.8 Deficiency of other specified B group vitamins; Z79.4 Long term (current) use of insulin; E78.5 Hyperlipidemia, unspecified; E11.9 Type 2 diabetes mellitus without complications; E55.9 Vitamin D deficiency, unspecified
CPT/HCPCS: 36415; 80053; 80061; 82043; 82306; 82570; 82607; 82746

== ENCOUNTER 2023-11-01 14:15 | Outpatient (AMB) | payer OTHER, SELFPAY ==
--- NOTE | 2023-11-01 14:23 | MHC.OFFVIS ---
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 Accompanied by: Mother Allergies metformin Allergy (Intermediate, Verified 11/01/23 14:53) stomach upset dulaglutide [From Trulicity] Adverse Reaction (Severe, Verified 11/01/23 14:53) blurry vision, abdominal pain insulin glargine [From Toujeo Max U-300 SoloStar] Adverse Reaction (Intermediate, Verified 11/01/23 14:53) Dizziness cats, dogs Allergy (Intermediate, Uncoded 11/01/23 14:53) Agitated many environmental allergies Allergy (Intermediate, Uncoded 11/01/23 14:53) Flushing Medication List - Last Reconciled 11/01/23 by OMAR Garcia atorvastatin 80 mg PO BEDTIME 90 days blood sugar diagnostic ([employer] Verio test strips) use 1 strip to test blood sugar four times a day cetirizine 10 mg PO DAILY 30 days epinephrine IM famotidine (Pepcid) 20 mg PO BID flash glucose sensor (FreeStyle Vonnie 14 Day Sensor kit) As directed insulin aspart U-100 (Novolog FlexPen U-100 Insulin aspart) 10 units (0.1 mL) subcut TID 90 days insulin degludec (Tresiba FlexTouch U-200 insulin) 75 units (0.375 mL) subcut BEDTIME 90 days ketotifen fumarate 0.025%(0.035%) 0 drps ophthalmic (eye) lancets (OneTouch Delica Plus Lancet) one four times a day miconazole nitrate 2% (Miconazole-7) 1 appful vaginal BEDTIME 7 days pen needle, diabetic (BD Ultra-Fine Short Pen Needle) As directed pen needle, diabetic (Comfort EZ Pen [place]) Use 1 pen needle four a day semaglutide (Ozempic) 2 mg (0.75 mL) subcut QWEEK 4 weeks simethicone (Gas Relief (simethicone)) 125 mg PO TID-QID PRN terazosin 2 mg (2 x 1 mg) PO BEDTIME 90 days valacyclovir 500 mg PO BID [vaniqua 11.5 % cram As directed] HPI Comments Details: Lin is a pleasant 53-year-old Cuban-speaking female patient of Dr. Lees was accompanied by her mom at today's office visit. She presents to the office today for follow-up of her urinary frequency, urinary urgency, and incomplete bladder emptying. She has a past medical history of chronic idiopathic constipation, depression, anxiety, type 2 diabetes, GERD, obesity, hypercholesteremia, and endometriosis. In discussion with the patient today she reports to be doing and feeling well. She reports since his last office visit here she has had no bothersome urinary issues or concerns. She reports compliance with terazosin as prescribed. She reports noting significant improvement in lower urinary tract symptoms she had been experiencing. In office urinalysis results reviewed with the patient today. PVR 0 mL. In review of patient's chart it appears last A1c 09/05 14 0.0. We discussed at length importance of managing diabetes for improvement lower urinary tract symptoms as well as overall health. She otherwise denies incontinence, nocturia, hematuria, dysuria, foul smelling urine, changes to urinary stream, flank pain, fever, and or chills. 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 Sister No problems noted. Social History Housing: Apartment Alcohol intake: current Alcohol intake frequency: holidays/special occasions only Alcohol type: wine Patient Tobacco Use Status: Never used Tobacco e-Cigarette/Vaping Use: Never Used Second Hand Smoke Exposure: No service: No Current occupational status: unemployed Cognitive needs: No Hearing needs: No Vision needs: No Female Reproductive History Menstrual Age of Menarche: 10 Review of Systems Const Reports as per [facility] Eyes Reports no additional complaints ENT Reports no additional complaints Card Reports as per [facility] Resp Reports no additional complaints GI Reports as per [facility] Reports as per [facility] Psych Reports as per [facility] Endo Reports as per [facility] Physical Exam Const General: cooperative, healthy appearing, comfortable, no acute distress, well developed, alert and awake Orientation/consciousness: patient oriented x3 Limitations: no limitations HEENT Head: Yes normal to inspection, Yes normocephalic and Yes atraumatic Ears: hearing grossly normal bilaterally Eyes General: appearance normal, both eyes and all related structures Neck Neck: Yes normal visual inspection and Yes trachea midline Chest Chest palpation & inspection: normal inspection of the chest Resp Effort & Inspection: normal respiratory effort and able to speak in complete sentences Cardio Rate: regular rate GI Inspection: Yes normal to inspection General: Yes no CVA tenderness Back/Spine/Pelvis Back: no CVA tenderness Skin General skin exam: no rashes or lesions noted Neuro General: patient oriented x3 Extrem General: Yes normal to inspection Psych Appearance: grossly normal and well kempt Mental Status: mental status grossly normal Speech and movement: Normal speech and movement present and Clear speech present Affect: normal affect Attitude: cooperative Thought process: Normal thought process present Thought content: Normal thought content present Insight: Good insight present (Psych) Judgement: Good judgement present (Psych) Office Procedures Post Void Residual Post Residual Void Post Void Residual (PVR): 0 [id number] Void Residual by ultrasound Results AMB Urinalysis, Automated UA Leukoctes 0 Arcenio/uL Last Edit by [employer] on 11/01/23 14:36 UA Nitrite Last Edit by [employer] on 11/01/23 14:36 UA Urobilinogen 0.2 mg/dL Last Edit by [employer] on 11/01/23 14:36 UA Protein 0 mg/dL Last Edit by [employer] on 11/01/23 14:36 UA pH 6.0 Last Edit by [employer] on 11/01/23 14:36 UA Blood 0 Edison/uL Last Edit by [employer] on 11/01/23 14:36 UA Specific [place] 1.015 Last Edit by [employer] on 11/01/23 14:36 UA Ketone Last Edit by [employer] on 11/01/23 14:36 UA Bilirubin 0 mg/dL Last Edit by Loan Terri on 11/01/23 14:36 UA Glucose 1000 mg/dL Last Edit by Nirmaldenishasarah Murray on 11/01/23 14:36 Results Reviewed Results Reviewed: Laboratory Last Values Urine pH (Auto) 6.0 11/01/23 14:28 Specific [place] (Auto) 1.015 11/01/23 14:28 Urine Protein (Auto) 0 mg/dL 11/01/23 14:28 Glucose (UA)(Auto) 1000 mg/dL 11/01/23 14:28 Urine Blood (Auto) 0 Edison/uL 11/01/23 14:28 Urine Bilirubin (Auto) 0 mg/dL 11/01/23 14:28 Urine Urobilinogen (Auto) 0.2 mg/dL 11/01/23 14:28 Leukocyte Esterase (Auto) 0 Arcenio/uL 11/01/23 14:28 Assessment & Plan Assessment & Plan (1) Overactive bladder: Code(s): N32.81 - Overactive bladder Category: Medical (2) Lower urinary tract symptoms: Code(s): R39.9 - Unspecified symptoms and signs involving the genitourinary system Category: Medical (3) Overflow incontinence of urine: Code(s): N39.490 - Overflow incontinence Category: Medical (4) Urge urinary incontinence: Code(s): N39.41 - Urge incontinence Category: Medical Plan In office urinalysis results reviewed with the patient today; as noted above. PVR 0 mL. Continue terazosin as discussed and prescribed Discussed and stressed the importance of managing diabetes for improvement lower urinary tract symptoms as well as overall health and well-being. Discussed and stressed the importance of drinking plenty of water daily. Patient denies any urological issues or concerns at this time Discussed possible near future retroperitoneal ultrasound and in office cystoscopy if symptoms arise, persist, and/or worsen. Follow-up in 6 month with PVR; or sooner with any issues, concerns, and or questions. Orders: Orders AMB Urinalysis Automated Today Z13.9 - Encounter for screening, unspecified AMB Post Void Residual by ultrasound Today N32.81 - Overactive bladder Medications: Refilled terazosin 2 mg (2 x 1 mg) PO BEDTIME 90 days 180 caps 1RF Patient Instructions: The patient had an opportunity to ask questions regarding the treatment plan. All questions were answered. Physical exam, labs, and imaging were discussed and reviewed in detail. As well as risks, benefits, and discussion of treatment choices. No major barriers to understanding were identified. The patient expressed understanding and agreement with the above treatment plan. The patient was made aware they should contact our office by phone for worsening of their current condition, the appearance of new symptoms, or with any questions or concerns. Compliance is encouraged with any medications and follow up testing that is ordered. It is a privilege to be allowed the opportunity to participate in? your urological care.? Again, if you have any questions or concerns If you have any questions or concerns please do not hesitate to contact me. The office is [phone]. This note is constructed using voice recognition software. While every effort has been made to ensure accuracy date night caregiver errors may have been included. Yours sincerely, OMAR Garcia Coding Level of Care Code Est Pt Level 3 (42744) Complex EM visit Add On G2211 Diagnoses Overactive bladder N32.81 Lower urinary tract symptoms R39.9 Overflow incontinence of urine N39.490 Urge urinary incontinence N39.41 CPT Codes Post Residual Void - PVR CPT Code: 83652-[id number] Void Residual by ultrasound ([id number])
== END 2023-11-01 14:51 | disposition home or self-care (01) ==
PROVIDERS: PCP Internal Medicine; Visit Provider Nurse Practitioner Family
DX: N32.81 Overactive bladder (principal); R39.9 Unspecified symptoms and signs involving the genitourinary system; N39.490 Overflow incontinence; N39.41 Urge incontinence; Z13.9 Encounter for screening, unspecified
CPT/HCPCS: 99213; G2211

== ENCOUNTER → 2023-11-01 14:15 | Outpatient (BNVA) | payer OTHER, SELFPAY | PROVIDERS: PCP Internal Medicine; Visit Provider Nurse Practitioner Family | DX: N32.81 Overactive bladder (principal); R39.9 Unspecified symptoms and signs involving the genitourinary system; N39.490 Overflow incontinence; N39.41 Urge incontinence | CPT/HCPCS: 51798; 81003; 99212 ==

== ENCOUNTER 2024-03-04 12:50 | Outpatient (AMB) | payer OTHER, SELFPAY ==
--- NOTE | 2024-03-04 13:18 | A.OFFPC_ITS ---
Vital Signs 03/04/24 13:19 Height 5 ft 2 in Weight 164 lb 14.999 oz BMI 30.2 BP 118/70 Blood Pressure Location Lt brachial Position Sitting Intake Visit Reasons: dm Intake Note: Patient here for a follow up DM Pullboat Engineer Required: Yes Pullboat Engineer Language: Litigation Support Analyst Name: Tammy Swanson Information Interpreted: non-clinical & clinical Accompanied by: Self / Same As Patient Allergies metformin Allergy (Intermediate, Verified 03/04/24 13:53) stomach upset dulaglutide [From Trulicity] Adverse Reaction (Severe, Verified 03/04/24 13:53) blurry vision, abdominal pain insulin glargine [From Toujeo Max U-300 SoloStar] Adverse Reaction (Intermediate, Verified 03/04/24 13:53) Dizziness cats, dogs Allergy (Intermediate, Uncoded 03/04/24 13:53) Agitated many environmental allergies Allergy (Intermediate, Uncoded 03/04/24 13:53) Flushing Medication List - Last Reconciled 03/04/24 by Tammy Swanson MD atorvastatin 80 mg PO BEDTIME 90 days blood sugar diagnostic (OneTouch Verio test strips) use 1 strip to test blood sugar four times a day cetirizine 10 mg PO DAILY 30 days epinephrine IM famotidine (Pepcid) 20 mg PO BID flash glucose sensor (FreeStyle Vonnie 14 Day Sensor kit) As directed insulin aspart U-100 (Novolog FlexPen U-100 Insulin aspart) 10 units (0.1 mL) subcut TID 90 days insulin degludec (Tresiba FlexTouch U-200 insulin) 75 units (0.375 mL) subcut BEDTIME 90 days ketotifen fumarate 0.025%(0.035%) 0 drps ophthalmic (eye) lancets (OneTouch Delica Plus Lancet) one four times a day pen needle, diabetic (BD Ultra-Fine Short Pen Needle) As directed pen needle, diabetic (Comfort EZ Pen [place]) Use 1 pen needle four a day semaglutide (Ozempic) 2 mg (0.75 mL) subcut QWEEK 4 weeks simethicone (Gas Relief (simethicone)) 125 mg PO TID-QID PRN terazosin 2 mg (2 x 1 mg) PO BEDTIME 90 days valacyclovir 500 mg PO BID [vaniqua 11.5 % cram As directed] Tobacco use date assessed: 03/04/24 Dental Screening Dental Screen Date: 03/04/24 Did you have a dental visit in the last 12 months?: No Did you have a dental problem in the last 6 months where you did not have access to dental care?: No Was dental information given to patient?: Patient has dentist HPI HPI Comments History of Present Illness Details The patient is a 53-year-old female presenting with concerns regarding her uncontrolled Type 2 Diabetes Mellitus and menopausal symptoms. The patient reports an HbA1c level of 14, indicating poorly controlled diabetes. She mentions non-compliance with her insulin regimen, specifically noting that she does not always administer the prescribed 75 units daily, resulting in elevated glucose levels. The patient previously used Ozempic, but discontinued due to concerns about side effects after not receiving the medication while in [place]. Menopausal symptoms are also a concern, with irregular spotting and pelvic pain suggestive of uterine involvement or bowel discomfort. The patient is unsure if her upcoming appointment is with a medical detailist, indicating the need for follow- up regarding these symptoms. She reports feeling fatigued and experiencing palpitations, with episodes of chest discomfort. A referral for an electrocardiogram was suggested to evaluate these symptoms further. Hypercholesterolemia is being managed with Atorvastatin 80 mg, and she is advised to undergo laboratory testing, including lipid profile assessment, in preparation for an upcoming physical exam. GERD stable with Pepcid as needed. Also has mild to moderate recurrent major depression but declines treatment. [facility], [facility] Medical History (Updated 03/04/24 @ 14:48 by Tammy Swanson MD) Chronic idiopathic constipation Epistaxis Overflow incontinence of urine shelter (current) use of insulin Obesity due to excess calories DM2 (diabetes mellitus, type 2) Urge urinary incontinence Lumbar pain Mild recurrent major depression Obesity (BMI 30-39.9) Hot flashes Pterygium of both eyes Depression with anxiety Daytime sleepiness GERD (gastroesophageal reflux disease) Polyarthralgia Left hand pain Obese Pure hypercholesterolemia Diabetes mellitus Surgical History Cataract History of ectopic Family History Father Diabetes Hypertension Mother Diabetes Hypertension Family/Other FH: mental illness Brother No problems noted. Sister No problems noted. Social History Housing: Apartment Alcohol intake: current Alcohol intake frequency: holidays/special occasions only Alcohol type: wine Patient Tobacco Use Status: Never used Tobacco e-Cigarette/Vaping Use: Never Used Second Hand Smoke Exposure: No service: No Current occupational status: unemployed Cognitive needs: No Hearing needs: No Vision needs: No Female Reproductive History Menstrual Age of Menarche: 10 Questionnaire PHQ-9 Over the last 2 weeks, how often have you been bothered by any of the following problems? 1. Little interest or pleasure in doing things: not at all 2. Feeling down, depressed, or hopeless: not at all 3. Trouble falling or staying asleep, or sleeping too much: not at all 4. Feeling tired or having little energy: not at all 5. Poor appetite or overeating: not at all 6. Feeling bad about yourself - or that you are a failure or have let yourself or your family down: not at all 7. Trouble concentrating on things, such as reading the newspaper or watching television: not at all 8. Moving or speaking so slowly that other people could have noticed. Or the opposite - being so fidgety or restless that you have been moving around a lot more than usual: not at all 9. Thoughts that you would be better off or of hurting yourself in some way: not at all Total score: 0 Depression Screening Interpretation: Negative Depression Screening Done: Yes [id number] - PHQ-9 Billing: Yes Source: Developed by Drs. Jack Webster, Renetta Parker, Fan Dotson and colleagues, with an educational nuris from [employer]. Thrive Questionnaire Date Thrive assessed: 03/04/24 I am a: Patient What is your living situation today?: I have a steady place to live Within the past 12 months, did the food you bought not last and you didn't have the money to get more?: Never true Within the past 12 months, did you worry whether your food would run out before you got money to buy more?: Never true Do you have trouble paying for medicines?: No Do you have trouble getting transportation to medical appointments?: No Do you have trouble paying your heating and electricity bill?: No Do you have trouble taking care of your child, family member or friend?: No Do you have trouble with day-to-day activities such as bathing, preparing meals, shopping, managing finances, etc.?: No Are you currently unemployed and looking for a job?: No Are you interested in more education?: No Please select the resources that you would like help with: None Currently or been in a relationship where the following occur: No concerns reported THRIVE Score: 0 AUDIT C Alcohol Use Questionnaire (AUDIT-C) 1. How often do you have a drink containing alcohol?: Never Total Score: 0 SWATHI-7 AMB Questionnaire SWATHI-7 Date SWATHI - 7 assessed: 03/04/24 Feeling nervous, anxious, or on edge: 0 = Not at all Not being able to stop or control worryin = Not at all Worrying too much about different things: 0 = Not at all Trouble relaxin = Not at all Being so restless that it is hard to sit still: 0 = Not at all Becoming easily annoyed or irritable: 0 = Not at all Feeling afraid as if something awful might happen: 0 = Not at all Total SWATHI-7 score (0-4 normal; 5-9 mild; 10-14 moderate; 15-21 severe): 0 Source: Developed by Drs. Jack Webster, Renetta Parker, Fan Dotson and colleagues, with an educational nuris from [employer]. Review of Systems Const All systems reviewed & are unremarkable except as noted in HPI and below Card Denies chest pain at rest, Denies chest pain with activity, Denies edema, Denies irregular heart rhythm, Denies claudication, Denies dyspnea, Denies dyspnea on exertion, Denies orthopnea, Denies paroxysmal nocturnal dyspnea and Denies slow heart rate Resp Denies cough, Denies dyspnea and Denies dyspnea on exertion Physical exam (Primary Care) Vital Signs: Last Vital Signs BP 118/70 03/04/24 13:19 BMI result Body Mass Index 30.2 BMI Assessment/Plan discussion: High BMI High, discussed plan: lifestyle, weight reduction, dietary and physical activity Tobacco/Smoking Status: Tobacco use Status Tobacco use date assessed 03/04/24 03/04/24 13:24 Patient Tobacco Use Status Never used Tobacco 03/04/24 13:18 e-Cigarette/Vaping Use Never Used 03/04/24 13:18 PHQ-9: PHQ-9 Score PHQ-9: Total score 0 03/04/24 13:55 Depression Screening Interpretation: Negative Thrive Assessment: Date of Thrive Assessment Date Thrive assessed 03/04/24 03/04/24 13:24 Currently or been in a relationship where the following occur: No concerns reported Resp Effort & Inspection: normal respiratory effort Auscultation: clear to auscultation bilaterally Cardio Jugular venous distension: no JVD Rate: regular rate Rhythm: regular rhythm Heart sounds: S1 normal heart sound present and S2 normal heart sound present Extrem General: Yes full ROM Office Procedures Flu Questionnaire Does the patient have a severe egg allergy?: No Results AMB Hemoglobin A1c AMB Hemoglobin A1c 14.0 % Last Edit by VERNA Varghese on 03/04/24 13: 25 Immunizations Fluarix Triv [id number] (PF) 45 mcg (15 mcg x 3)/0.5 mL IM syringe Performing Provider: Tammy Swanson MD [facility] Documented (not given) by: VERNA Varghese on 03/04/24 13:18 Reason Not Given: Patient Refused Results Reviewed Results Reviewed: Laboratory Last Values Hgb A1c (Clinic) 14.0 % (4.0-6.0) H 03/04/24 13:15 Coding Level of Care Code Est Pt Level 4 (52989) Complex EM visit Add On G2211 Diagnoses Uncontrolled type 2 diabetes mellitus with hyperglycemia E11.65 Diabetes mellitus type: type 2 Chest pain R07.9 Pure hypercholesterolemia E78.00 Gastroesophageal reflux disease, unspecified whether esophagitis present K21.9 Esophagitis presence: esophagitis presence not specified Mild recurrent major depression F33.0 Additional Codes PHQ-9 - 13803 - PHQ-9 Billing: Yes ([id number]) Time Spent (min) 23 Assessment & Plan Assessment & Plan (1) Uncontrolled diabetes mellitus with hyperglycemia: Comment: Patient cites being on multiple medications. She also says she loves to eat sweet things and watch TV with her mother and does not go walking Code(s): E11.65 - Type 2 diabetes mellitus with hyperglycemia Category: Medical Qualifiers: Diabetes mellitus type: type 2 Qualified Code(s): E11.65 - Type 2 diabetes mellitus with hyperglycemia (2) Chest pain: Code(s): R07.9 - Chest pain, unspecified Category: Medical (3) Pure hypercholesterolemia: Code(s): E78.00 - Pure hypercholesterolemia, unspecified Category: Medical (4) GERD (gastroesophageal reflux disease): Code(s): K21.9 - Gastro-esophageal reflux disease without esophagitis Category: Medical Qualifiers: Esophagitis presence: esophagitis presence not specified Qualified Code(s): K21.9 - Gastro-esophageal reflux disease without esophagitis (5) Mild recurrent major depression: Code(s): F33.0 - Major depressive disorder, recurrent, mild Category: Medical Plan - Emphasize the importance of adherence to insulin therapy to manage Type 2 Diabetes Mellitus. - Discontinue Ozempic due to patient concerns about potential side effects. - Recommend an electrocardiogram to evaluate palpitations and chest discomfort. - Schedule laboratory tests, including lipid profile, renal and liver function tests, and glucose level assessments. - Address menopausal symptoms with a referral to gynecology for further assessment and potential management. - Continue current cholesterol management with Atorvastatin 80 mg. - Discuss potential alternatives for allergy management, considering allergic rhinitis. Patient was informed and verbally consented to the use of an ambient scribe for clinic note documentation during this visit. I discussed with the patient the critical importance of adhering to her insulin regimen to improve her glycemic control and reduce her HbA1c levels. We addressed her concerns about Ozempic, resulting in discontinuation due to fear of side effects. I recommended she complete an electrocardiogram alongside her upcoming laboratory tests to investigate her palpitations and chest discomfort. We also addressed her menopausal symptoms, agreeing on a gynecology referral for further evaluation. Continuation of her current statin therapy was advised, and we discussed potential options for managing her allergic rhinitis. Orders: Orders Influenza [id number] Immunization Today Z23 - Encounter for immunization Microalbumin, Random (w Creat) Today R80.9 - Proteinuria, unspecified Vitamin D 25-OH Total Today E55.9 - Vitamin D deficiency, unspecified Comprehensive Breaks. Panel Fast Today E11.65 - Type 2 diabetes mellitus with hyperglycemia ECG 12 lead EKG Today R07.9 - Chest pain, unspecified AMB Hemoglobin A1c Today E11.65 - Type 2 diabetes mellitus with hyperglycemia, Z79.4 - medical terminologist (current) use of insulin Lipid Panel Today E78.5 - Hyperlipidemia, unspecified Medications: Discontinued semaglutide (Ozempic) Discontinued Reason: Patient Completed Course 2 mg (0.75 mL) subcut QWEEK 4 weeks 3 mL 0RF Patient Instructions: - Continue with prescribed insulin therapy and try to adhere to the dosing schedule. - Do not restart Ozempic until further discussion and evaluation. - Attend scheduled electrocardiogram and laboratory tests. - Follow up with the gynecology appointment for menopausal symptoms. - Continue taking Atorvastatin 80 mg as previously prescribed. - Discuss any new or worsening symptoms concerning allergic reactions, especially if new medications are introduced.
[2024-03-04 13:19] VITALS: BP 118/70; BMI 30.2
== END 2024-03-04 14:02 | disposition home or self-care (01) ==
PROVIDERS: PCP Internal Medicine; Visit Provider Internal Medicine
DX: E11.65 Type 2 diabetes mellitus with hyperglycemia (principal); R07.9 Chest pain, unspecified; E78.00 Pure hypercholesterolemia, unspecified; K21.9 Gastro-esophageal reflux disease without esophagitis; F33.0 Major depressive disorder, recurrent, mild; Z79.4 Long term (current) use of insulin; Z23 Encounter for immunization

== ENCOUNTER → 2024-03-04 12:50 | Outpatient (BNVA) | payer OTHER, SELFPAY | PROVIDERS: PCP Internal Medicine; Visit Provider Internal Medicine | DX: E11.65 Type 2 diabetes mellitus with hyperglycemia (principal); R07.9 Chest pain, unspecified; E78.00 Pure hypercholesterolemia, unspecified; K21.9 Gastro-esophageal reflux disease without esophagitis; F33.0 Major depressive disorder, recurrent, mild | CPT/HCPCS: 83036; 90471; 96127; 99212 ==

== ENCOUNTER 2024-04-05 13:53 | Outpatient (REF) | payer OTHER, SELFPAY ==
--- OUTSIDE RECORDS SUMMARY | 2024-04-05 15:09 | XMS_ITS | Clinical Summary ---
Author Organization [facility] Address [address] [place] [address] Care Team Providers Care Clinical Manager Home Care Name Role Phone Unavailable Primary Care Provider [...] Procedure Name Priority Date/Time Associated Diagnosis Comments [facility] SCREENING DIGITAL Routine 03/06/2023 2:23 PM EST Encounter for screening mammogram for malignant neoplasm of breast PAP SMEAR Routine 05/04/2017 from Last 3 Months or Most Recently Relevant to Health Maintenance Results * VANESSA SCREENING DIGITAL (03/06/2023 2:23 PM EST) Anatomical Region Laterality Modality Mammography 03/06/2023 1:27 PM EST Narrative 03/06/2023 2:23 PM EST [facility] Diagnostic Imaging Department [address] [place], [place] [id number] Patient: ??LIN MYERS ?/Age/Sex: 1970 - 52 - F Unit#: ??[id number] ? Location/Status: ??SPDIMAM/REG CLI ? Mnemonic/Ordering Site: ??DIGSC/SPMAM Ordering Physician: ??JAYLIN GODDARD GALPatt [facility] Screening Digital - 03/06/23 - 1344 Report Status:Signed EXAM: [facility] Screening Digital EXAM DATE AND TIME: 03/06/2023 1:45 PM HISTORY: ??Annual screening COMPARISON: ??Multiple exams dating back to 2007 TECHNIQUE: Bilateral digital breast tomosynthesis was performed in the CC and MLO projections. Computer aided detection with [employer] 3D 3.1 was employed. TISSUE DENSITY: b. [...] Procedure Note Natali Bailon MD - 10/02/2023 [facility] Diagnostic Imaging Department [address] [place] [address] Patient: LIN MYERS D.O.B./Age/Sex: 1970 - 52 - F Unit#: [id number] Location/Status: SPDIMAM/REG CLI Mnemonic/Ordering Site: [facility] Ordering Physician: JAYLIN GODDARD CNM [facility] Screening Digital - 03/06/23 - 1344 Report Status:Signed EXAM: [facility] Screening Digital EXAM DATE AND TIME: 03/06/2023 1:45 PM HISTORY: Annual screening COMPARISON: Multiple exams dating back to 2007 TECHNIQUE: Bilateral digital breast tomosynthesis was performed in the CCand MLO projections. Computer aided detection with [employer] 3D 3.1was employed. TISSUE DENSITY: b. There [...] RESULTING AGENCY - 05/08/2017 10:39 AM EDT [id number] RESULTS OF GEN-PROBE APTIMA COMBO 2 ASSAY CHLAMYDIA: ?NEGATIVE N. GONORRHOEAE: ? NEGATIVE DM OJEDA M.D., PATHOLOGIST (CASE ELECTRONICALLY SIGNED 05 08 2017) CLINICAL INFORMATION: Z12.4, HORMONES. Z01.419 ENCOUNTER FOR GYNECOLOGICAL EXAMINATION (GENERAL) (ROUTINE) WITHOUT ABNORMAL FINDINGS SOURCE: THINPREP PAP FOR CT/GC GROSS DESCRIPTION: THINPREP VIAL RECEIVED. PHYSICIANS ELAINE WATSON/#[phone]/ Elaine Watson [facility] LAB CYTOLOGY ORDERABLES Final Result HISTORICAL TESTING LAB RESULTING AGENCY from Last 3 Months or Most Recently Relevant to Health Maintenance
[2024-04-06 02:28] LABS: CT PCR NOT DETECTED (Not Detect.); NG PCR NOT DETECTED (Not Detect.)
[2024-04-07 09:33] LABS: Bacterial Vaginosis PCR NEGATIVE (Negative); Candida Group PCR DETECTED (Not Detect); Candida glab krusei PCR DETECTED (Not Detect); Trichomonas vaginalis PCR NOT DETECTED (Not Detect)
== END 2024-04-05 13:54 | disposition home or self-care (01) ==
LOC: HO.LAB 13:53
PROVIDERS: PCP Internal Medicine; Visit Provider Advanced Practice Midwife
DX: Z01.419 Encounter for gynecological examination (general) (routine) without abnormal findings (principal); N89.8 Other specified noninflammatory disorders of vagina
CPT/HCPCS: 81515; 87491; 87591; 87626; 88175; 99396; 99459

== ENCOUNTER 2024-04-05 13:53 | Outpatient (AMB) | payer OTHER, SELFPAY ==
[2024-04-05 13:59] VITALS: BP 120/70
--- NOTE | 2024-04-05 13:59 | A.OFFVIS_ITS ---
Vital Signs 04/05/24 13:59 Height 5 ft 2 in Weight 164 lb BMI 30.0 BP 120/70 Intake Visit Reasons: BULLDOGGER annual exam Nutritional Yeast Supervisor Required: No Nutritional Yeast Supervisor Services: Nutritional Yeast Supervisor Present Information Interpreted: clinical only Generation Engineering Technologist: Generation Engineering Technologist Present Allergies metformin Allergy (Intermediate, Verified 04/05/24 14:16) stomach upset dulaglutide [From Trulicity] Adverse Reaction (Severe, Verified 04/05/24 14:16) blurry vision, abdominal pain insulin glargine [From Toujeo Max U-300 SoloStar] Adverse Reaction (Intermediate, Verified 04/05/24 14:16) Dizziness cats, dogs Allergy (Intermediate, Uncoded 04/05/24 14:16) Agitated many environmental allergies Allergy (Intermediate, Uncoded 04/05/24 14:16) Flushing Medication List - Last Reconciled 04/05/24 by Tana Anderson CNM cetirizine 10 mg PO DAILY 30 days epinephrine IM famotidine (Pepcid) 20 mg PO BID ketotifen fumarate 0.025%(0.035%) 0 drps ophthalmic (eye) simethicone (Gas Relief (simethicone)) 125 mg PO TID-QID PRN terazosin 2 mg (2 x 1 mg) PO BEDTIME 90 days valacyclovir 500 mg PO BID [vaniqua 11.5 % cram As directed] Post menopausal: Yes (postmenopausal) HPI HPI BULLDOGGER annual exam: Details: 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 Patient is diabetic she says she has stopped insulin and she does not want to take it anymore she had knows that she needs to eat better. She says she was also given Ozempic and she did not like it and it gave her side effects with pain in her hands.. She also has issues with her eyes and she saw the eye doctor and had cataract surgery. There is a tiny bubbles flickering in the people of her left eye and she says her next appointment is in about a month she says her vision has changed before she could see better up close and now she can see better far away. Patient thinks she needs to schedule her mammogram.. Patient is taking some medication for her bladder and she thinks she has an appointment with that doctor in the next month recommends speaking about any urinary issues that she may have with the provider. Patient denies any problems with constipation or currently urinary issues when I ask the patient if she thought she was bloated she said yes and she thinks it is just that she needs to eat less. Patient feels pain in right and left lower quadrant that she thinks has to do with her ovaries. Sometimes she has a discharge. She says she has not had a real period in 4 years. She says she is in menopause and she does get lots hot flashes. Patient has since complaining of vaginal itching and thinks it is a fungus from her blood sugars and she thinks she needs to eat better and she is trying to eat better but she likes sugar. 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 Sister No problems noted. Social History Housing: Apartment Alcohol intake: current Alcohol intake frequency: holidays/special occasions only Alcohol type: wine Patient Tobacco Use Status: Never used Tobacco e-Cigarette/Vaping Use: Never Used Second Hand Smoke Exposure: No service: No Current occupational status: unemployed Cognitive needs: No Hearing needs: No Vision needs: No Female Reproductive History Menstrual Age of Menarche: 10 control method: none Total pregnancies: 3 Full term: 0 Date of last pap smear: 03/14/23 (Ascus,hpv+, previous pap 2021 negative) History of abnormal pap smear: Yes Date of Mammogram: 04/03/23 (negative) Physical Exam Vital Signs: Last Vital Signs BP 120/70 04/05/24 13:59 BMI result Body Mass Index 30.0 Const General: healthy appearing, comfortable, no acute distress, well developed and alert Nutritional Appearance: average body habitus Orientation/consciousness: patient oriented x3 Limitations: no limitations HEENT Head: Yes normocephalic Neck Neck: Yes normal visual inspection Chest Chest palpation & inspection: normal inspection of the chest Breast/axilla inspection: normal inspection of the breasts and normal inspection of the axillae Breast/axilla palpation: normal palpation of the breasts and normal palpation of the axillae Resp Effort & Inspection: normal respiratory effort GI Other: Has a appearance of ascites Inspection: Yes normal to inspection, No Abdominal wall edema, Yes distended and Yes obesity Palpation (GI): Soft to palpation and nontender Other: Patient complains of pain right and left lower abdomen slightly above suprapubic area she thinks it is her ovaries.. Abdomen is very soft feels distended bloated almost consistent with the ascites. Vulva is reddened, consistent with moisture and yeast no abnormal discharge vagina is pink and moist cervix pink and smooth Pap smear and testing for infection taken. General: Yes bladder normal to palpation External Female Exam: normal external appearance and normal appearance of the urethra Speculum Exam - Vagina: normal appearance of the vagina, normal palpation and normal vaginal discharge Speculum Exam - Cervix: normal appearance of the cervix, normal palpation and nontender Bimanual exam- vagina & uterus: normal bimanual exam, normal palpation, uterine size normal, bladder normal to palpation, consistency normal, normal palpation, uterine mobility normal, uterine shape normal, No Cervical tenderness present, non-tender and no cervical motion tenderness Bimanual Exam- Adnexa, other: normal adnexae, no masses, normal and No adnexal tenderness Neuro General: patient oriented x3 Results Reviewed Results Reviewed: Name: Lin Dove Age/Sex: 52/F Attending: Tana Anderson CNM : 1970 Submitted by: Tana Anderson CNM Copies to: Tammy Bravo MD MR #: [id number] Status: DEP REF Collected: 03/09/23 Location: .LAB Received: 03/14/23 Interpretation General Category: Epithelial cell abnormality. Adequacy: Endocervical component present. Interpretation: Atypical squamous cells of undetermined significance, rare. Nicolette present. HPV mRNA E6/E7: DETECTED This assay detects E6/E7 viral messenger RNA (mRNA) from 14 high-risk HPV types (16, 18, 31, 33, 35, 39, 45, 51, 52, 56, 58, 59, 66, 68) HPV Type 16 RNA: Not Detected HPV Type 18/45 RNA: Not Detected HPV testing performed by [employer], [place], [place]. See reference laboratory portion of the EMR for entire report. Clinical Information LMP: Postmenopausal Previous PAP test: 2021, WNL Other history: 2019, Abnormal pap +HPV Material Received ThinPrep-Cervical Copies To Tana Anderson CNM [address] [place] [address] [address] [place] [address] Tammy Bravo MD [address] [place] [address] [address] [place] [address] Patient: Lin Dove Age/Sex: 52/F MR#: [id number] Page 1 of 2 See post colposcopy and biopsy note from 05/2023. 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 She also says she loves to eat sweet things and watch TV with her mother and does not go walking; 04/05/2024 patient says she has stopped her insulin and does not want to take it anymore..... Code(s): E11.65 - Type 2 diabetes mellitus with hyperglycemia Category: Medical Qualifiers: Diabetes mellitus type: type 2 Qualified Code(s): E11.65 - Type 2 diabetes mellitus with hyperglycemia (4) Yeast infection of the vagina: Comment: Exacerbated by elevated blood sugars.... 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 Patient is diabetic she says she has stopped insulin and she does not want to take it anymore she had knows that she needs to eat better. She says she was also given Ozempic and she did not like it and it gave her side effects with pain in her hands.. She also has issues with her eyes and she saw the eye doctor and had cataract surgery. There is a tiny bubbles flickering in the people of her left eye and she says her next appointment is in about a month she says her vision has changed before she could see better up close and now she can see better far away. Patient thinks she needs to schedule her mammogram, as it is due. Patient is taking some medication for her bladder and she thinks she has an appointment with that doctor in the next month recommends speaking about any urinary issues that she may have with the provider. Patient denies any problems with constipation or currently urinary issues when I ask the patient if she thought she was bloated she said yes and she thinks it is just that she needs to eat less. Patient feels pain in right and left lower quadrant that she thinks has to do with her ovaries. Sometimes she has a discharge. She says she has not had a real period in 4 years. She says she is in menopause and she does get lots hot flashes. Patient has since complaining of vaginal itching and thinks it is a fungus from her blood sugars and she thinks she needs to eat better and she is trying to eat better but she likes sugar. She said she had eggs and cheese and ham today and then she said she had a cookie I asked her if she was joking about the cookie and she said yes. Pap smear was done and we will await the results of the if they are abnormal then she will be referred back for colposcopy and management with forex trader She is requesting fluconazole and cream for what she probably correctly thinks is a yeast infection and I will send prescriptions to her new pharmacy for both with refills. I am ordering a pelvic ultrasound to assess her ovaries to see if there is in pathology of concern I urged her to consider what she is doing care for diabetes she says she does know she better she was trying. Of note she has lost some weight. 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 CT NG by PCR Today N89.8 - Other specified noninflammatory disorders of vagina Medications: New fluconazole may repeat second dose 72 hrs after first dose if symptoms persist 150 mg PO Q3D 2 doses 2 tabs 4RF miconazole nitrate 2% (Miconazole-7) Use when needed for external and internal yeast infection 1 appful vaginal BEDTIME 7 days 45 grams 4RF Coding Level of Care Code Est Pt Prev Care 40-64y(02056) Diagnoses Type 2 diabetes mellitus with hyperglycemia, with long-term current use of insulin E11.65; Z79.4 Diabetes mellitus type: type 2 Diabetes mellitus oil heaterman insulin use: with oil heaterman use Diabetes mellitus complication status: with hyperglycemia Women's annual routine gynecological examination Z01.419 Uncontrolled type 2 diabetes mellitus with hyperglycemia E11.65 Diabetes mellitus type: type 2 Yeast infection of the vagina B37.31 Abdominal bloating R14.0 Breast cancer screening Z12.39
--- OUTSIDE RECORDS SUMMARY | 2024-04-05 14:20 | XMS_ITS | Clinical Summary ---
Author Organization [facility] Address [address] [place] [address] Care Team Providers Care Director Of Research And Development Name Role Phone Unavailable Primary Care Provider Unavailabl e Social History Tobacco Use Types Packs/Day Years Used Date Smoking Tobacco: Never Assessed Comments Unknown Sex and Gender Information Value Date Recorded Sex Assigned at Not on file Legal Sex Female 4:54 AM EST Gender Identity Not on file Sexual Orientation Not on file Plan of Treatment Health Maintenance Due Date Last Done Comments Diabetes: Annual GFR (Glomerular Filtration Rate) 1968 Diabetes: Annual Foot Exam 1978 Diabetes: Annual Retina Eye Exam 1978 Hepatitis A Vaccines (1 of 2 - Risk 2-dose series) 07/19/1987 Hepatitis B Vaccines (1 of 3 - 19+ 3-dose series) 07/19/1987 Pneumococcal Vaccine: 50+ Years (1 of 1 - PCV) 2018 Zoster Vaccines (1 of 2) 2018 Cervical Cancer Screening: P ap Smear 05/04/2020 05/04/2017, 05/04/2017 DTaP,Tdap,and Td Vaccines (2 - Td or Tdap) 03/24/2021 03/24/2011 Cholesterol Screening (Lipid Panel) 01/16/2022 Colorectal Cancer Screening: Colonoscopy 01/16/2022 Depression Screening 01/16/2022 HIV Screening 01/16/2022 Hepatitis C Screening 01/16/2022 Social Influencers of Health Screening 01/16/2022 Diabetes: Annual Urine Albumin-Creatinine Ratio (uACR) 01/28/2022 Diabetes: Blood Sugar Contro l Test (HGBA1C) 01/28/2022 COVID-19 Vaccine (2023-2 5 season) 2023 Influenza Vaccine (#1) 2023 3, 12/16/2011 Breast Cancer Screening 03/06/2025 03/06/2023 HIB Vaccines Aged Out No longer eligi ble based on patient's age to complete this topic HPV Vaccines Aged Out No longer eligi ble based on patient's age to complete this topic IPV Vaccines Aged Out No longer eligi ble based on patient's age to complete this topic MMR Vaccines Aged Out No longer eligi ble based on patient's age to complete this topic Meningococcal ACWY Vaccine Aged Out N o longer eligible based on patient's age to complete this topic Meningococcal B Vacine Aged Out No lo nger eligible based on patient's age to complete this topic Pneumococcal Vaccine: Pediatrics (0 to 5 Years) and At-Risk Patients (6 to 64 Years) Aged Out No longer eligible b ased on patient's age to complete this topic RSV Immunization Patients Under 20 months Aged Out No longer eligible b ased on patient's age to complete this topic Varicella Vaccines Aged Out No longer eligible based on patient's age to complete this topic Procedures Procedure Name Priority Date/Time Associated Diagnosis Comments [facility] SCREENING DIGITAL Routine 03/06/2023 2:23 PM EST Encounter for screening mammogram for malignant neoplasm of breast PAP SMEAR Routine 05/04/2017 from Last 3 Months or Most Recently Relevant to Health Maintenance Results * VANESSA SCREENING DIGITAL (03/06/2023 2:23 PM EST) Anatomical Region Laterality Modality Mammography 03/06/2023 1:27 PM EST Narrative 03/06/2023 2:[address] [facility] Diagnostic Imaging Department [address] [place], [place] [id number] Patient: ??LIN MYERS ?/Age/Sex: 1970 - 52 - F Unit#: ??[id number] ? Location/Status: ??SPDIMAM/REG CLI ? Mnemonic/Ordering Site: ??DIGSC/SPMAM Ordering Physician: ??JAYLIN GODDARD GALPatt [facility] Screening Digital - 03/06/23 - 1344 Report Status:Signed EXAM: [facility] Screening Digital EXAM DATE AND TIME: 03/06/2023 1:45 PM HISTORY: ??Annual screening COMPARISON: ??Multiple exams dating back to 2007 TECHNIQUE: Bilateral digital breast tomosynthesis was performed in the CC and MLO projections. Computer aided detection with [employer] 3D 3.1 was employed. TISSUE DENSITY: b. There are scattered areas of fibroglandular density. FINDINGS: Possible developing asymmetry in the upper outer right breast. ??No associated calcifications or architectural distortion. ??The left breast is unremarkable. IMPRESSION: Possible developing asymmetry in the upper outer right breast. ??Recommend diagnostic mammogram of the right breast with spot compression MLO tomographic views. BI-RADS: ??Category 0: Incomplete - Need Additional Imaging Evaluation Dictating Physician: ??NATALI BAILON MD Electronically Signed by: ??NATALI BAILON MD Dic Date/Time: ??03/06/23 1421 Sign date/Time: ??03/06/23 1423 Procedure Note Natali Bailon MD - 10/02/2023 [facility] Diagnostic Imaging Department [address] [place] [address] Patient: LIN MYERS D.O.B./Age/Sex: 1970 - 52 - F Unit#: [id number] Location/Status: SPDIMAM/REG CLI Mnemonic/Ordering Site: [facility] Ordering Physician: JAYLIN GODDARD CNM [facility] Screening Digital - 03/06/23 - 1344 Report Status:Signed EXAM: [facility] Screening Digital EXAM DATE AND TIME: 03/06/2023 1:45 PM HISTORY: Annual screening COMPARISON: Multiple exams dating back to 2007 TECHNIQUE: Bilateral digital breast tomosynthesis was performed in the CCand MLO projections. Computer aided detection with [employer] 3D 3.1was employed. TISSUE DENSITY: b. There are scattered areas of fibroglandular density. FINDINGS: Possible developing asymmetry in the upper outer right breast. Noassociated calcifications or architectural distortion. The left breast isunremarkable. IMPRESSION: Possible developing asymmetry in the upper outer right breast.Recommend diagnostic mammogram of the right breast with spot compression MLOtomographic views. BI-RADS: Category 0: Incomplete - Need Additional Imaging Evaluation Dictating Physician: NATALI BAILON MD Electronically Signed by: NATALI BAILON MD Dic Date/Time: 03/06/23 1421 Sign date/Time: 03/06/23 1423 us Jaylin Devi BAI IMG BI PROCEDURES Final Resul t * Pap smear (05/04/2017) 05/04/2017 Narrative HISTORICAL TESTING LAB RESULTING AGENCY - 05/08/2017 10:39 AM EDT [id number] RESULTS OF GEN-PROBE APTIMA COMBO 2 ASSAY CHLAMYDIA: ?NEGATIVE N. GONORRHOEAE: ? NEGATIVE DM OEJDA M.D., PATHOLOGIST (CASE ELECTRONICALLY SIGNED 05 08 2017) CLINICAL INFORMATION: Z12.4, HORMONES. Z01.419 ENCOUNTER FOR GYNECOLOGICAL EXAMINATION (GENERAL) (ROUTINE) WITHOUT ABNORMAL FINDINGS SOURCE: THINPREP PAP FOR CT/GC GROSS DESCRIPTION: THINPREP VIAL RECEIVED. PHYSICIANS ELAINE WATSON/#[phone]/ Elaine Watson [facility] LAB CYTOLOGY ORDERABLES Final Result HISTORICAL TESTING LAB RESULTING AGENCY from Last 3 Months or Most Recently Relevant to Health Maintenance
== END 2024-04-05 14:51 | disposition home or self-care (01) ==
PROVIDERS: PCP Internal Medicine; Visit Provider Advanced Practice Midwife
DX: Z01.419 Encounter for gynecological examination (general) (routine) without abnormal findings (principal)
CPT/HCPCS: 99396; 99459

== ENCOUNTER 2024-04-05 14:55 | Outpatient (REF) | payer OTHER, SELFPAY ==
[2024-04-11 10:46] LABS: HPV Genotype 16 Negative (Negative); HPV Genotype 18 Negative (Negative); HPV High Risk Negative (Negative)
== END 2024-04-05 14:56 | disposition home or self-care (01) ==
LOC: HO.LNP 14:55
PROVIDERS: Visit Provider Advanced Practice Midwife
DX: Z13.89 Encounter for screening for other disorder (principal)
CPT/HCPCS: 87626; 88175

== ENCOUNTER 2024-05-01 14:04 | Outpatient (AMB) | payer OTHER, SELFPAY ==
--- NOTE | 2024-05-01 14:24 | A.OFFVIS_ITS ---
Intake Visit Reasons: 6m/PVR Intake Note: Patient is present for 6 month follow up/PVR/ [facility] Medications: terazosin Blood Thinner: none PVR: 0ml Adult Basic Education Teacher Required: Yes Adult Basic Education Teacher Name: SERGEIBENITEZMARTIN JESSY Accompanied by: Mother Allergies metformin Allergy (Intermediate, Verified 05/01/24 15:05) stomach upset dulaglutide [From Trulicity] Adverse Reaction (Severe, Verified 05/01/24 15:05) blurry vision, abdominal pain insulin glargine [From Toujeo Max U-300 SoloStar] Adverse Reaction (Intermediate, Verified 05/01/24 15:05) Dizziness cats, dogs Allergy (Intermediate, Uncoded 05/01/24 15:05) Agitated many environmental allergies Allergy (Intermediate, Uncoded 05/01/24 15:05) Flushing Medication List - Last Reconciled 05/01/24 by MATTIE Garcia-INDIRA blood-glucose meter (OneTouch Ultra2 Meter) As directed cetirizine 10 mg PO DAILY 30 days epinephrine IM famotidine (Pepcid) 20 mg PO BID fluconazole 150 mg PO Q3D 2 doses ketotifen fumarate 0.025%(0.035%) 0 drps ophthalmic (eye) lancets (Comfort EZ Lancets) As directed miconazole nitrate 2% (Miconazole-7) 1 appful vaginal BEDTIME 7 days [One touch test strips As directed] simethicone (Gas Relief (simethicone)) 125 mg PO TID-QID PRN terazosin 2 mg (2 x 1 mg) PO BEDTIME 90 days valacyclovir 500 mg PO BID [vaniqua 11.5 % cram As directed] HPI Comments Details: Lin is a pleasant 53-year-old French-speaking female patient of Dr. Lees was accompanied by her mom at today's office visit. She presents to the office today for follow-up of her urinary frequency, urinary urgency, and incomplete bladder emptying. She has a past medical history of chronic idiopathic constipation, depression, anxiety, type 2 diabetes, GERD, obesity, hypercholesteremia, and endometriosis. In discussion with the patient today she reports to be doing and feeling well. She reports since his last office visit here she has had no bothersome urinary issues or concerns. She reports compliance with terazosin as prescribed. She reports noting significant improvement in lower urinary tract symptoms she had been experiencing. In office urinalysis results reviewed with the patient today. PVR 0 mL. In review of patient's chart it appears last A1c 03/09 14 0.0. We discussed at length importance of managing diabetes for improvement lower urinary tract symptoms as well as overall health. She otherwise denies incontinence, nocturia, hematuria, dysuria, foul smelling urine, changes to urinary stream, flank pain, fever, and or chills. [facility] Medical History Chronic idiopathic constipation Epistaxis Overflow incontinence of urine snf (current) use of insulin Obesity due to excess calories DM2 (diabetes mellitus, type 2) Urge urinary incontinence Lumbar pain Mild recurrent major depression Obesity (BMI 30-39.9) Hot flashes Pterygium of both eyes Depression with anxiety Daytime sleepiness GERD (gastroesophageal reflux disease) Polyarthralgia Left hand pain Obese Pure hypercholesterolemia Diabetes mellitus Surgical History Cataract History of ectopic Family History Father Diabetes Hypertension Mother Diabetes Hypertension Family/Other FH: mental illness Brother No problems noted. Sister No problems noted. Social History Housing: Apartment Alcohol intake: current Alcohol intake frequency: holidays/special occasions only Alcohol type: wine Patient Tobacco Use Status: Never used Tobacco e-Cigarette/Vaping Use: Never Used Second Hand Smoke Exposure: No service: No Current occupational status: unemployed Cognitive needs: No Hearing needs: No Vision needs: No Female Reproductive History Menstrual Age of Menarche: 10 Review of Systems Const Reports as per HPI Eyes Reports no additional complaints ENT Reports no additional complaints Card Reports as per HPI Resp Reports no additional complaints GI Reports as per HPI Reports as per HPI Psych Reports as per HPI Endo Reports as per HPI Physical Exam Const General: cooperative, healthy appearing, comfortable, no acute distress, well developed, alert and awake Orientation/consciousness: patient oriented x3 Limitations: no limitations HEENT Head: Yes normal to inspection, Yes normocephalic and Yes atraumatic Ears: hearing grossly normal bilaterally Eyes General: appearance normal, both eyes and all related structures Neck Neck: Yes normal visual inspection and Yes trachea midline Chest Chest palpation & inspection: normal inspection of the chest Resp Effort & Inspection: normal respiratory effort and able to speak in complete sentences Cardio Rate: regular rate GI Inspection: Yes normal to inspection General: Yes no CVA tenderness Back/Spine/Pelvis Back: no CVA tenderness Skin General skin exam: no rashes or lesions noted Neuro General: patient oriented x3 Extrem General: Yes normal to inspection Psych Appearance: grossly normal and well kempt Mental Status: mental status grossly normal Speech and movement: Normal speech and movement present and Clear speech present Affect: normal affect Attitude: cooperative Thought process: Normal thought process present Thought content: Normal thought content present Insight: Fair insight present (Psych) Judgement: Fair judgement present (Psych) Results AMB Urinalysis, Automated UA Leukoctes 0 Arcenio/uL Last Edit by Marina Frankel on 05/01/24 14:39 UA Nitrite Negative Last Edit by Marina Frankel on 05/01/24 14:39 UA Urobilinogen 3.5 mg/dL Last Edit by Marina Frankel on 05/01/24 14:39 UA Protein 0 mg/dL Last Edit by Marina Frankel on 05/01/24 14:39 UA pH 6.0 Last Edit by Marina Frankel on 05/01/24 14:39 UA Blood 0 Edison/uL Last Edit by Marina Frankel on 05/01/24 14:39 UA Specific [place] 1.010 Last Edit by Marina Frankel on 05/01/24 14:39 UA Ketone Negative Last Edit by Marina Frankel on 05/01/24 14:39 UA Bilirubin 0 mg/dL Last Edit by Marina Frankel on 05/01/24 14:39 UA Glucose 30 mg/dL Last Edit by Marina Frankel on 05/01/24 14:39 Results Reviewed Results Reviewed: Laboratory Last Values Urine pH (Auto) 6.0 05/01/24 14:21 Specific [place] (Auto) 1.010 05/01/24 14:21 Urine Protein (Auto) 0 mg/dL 05/01/24 14:21 Glucose (UA)(Auto) 30 mg/dL 05/01/24 14:21 Urine Ketones (Auto) Negative 05/01/24 14:21 Urine Blood (Auto) 0 Edison/uL 05/01/24 14:21 Urine Nitrite (Auto) Negative 05/01/24 14:21 Urine Bilirubin (Auto) 0 mg/dL 05/01/24 14:21 Urine Urobilinogen (Auto) 3.5 mg/dL 05/01/24 14:21 Leukocyte Esterase (Auto) 0 Arcenio/uL 05/01/24 14:21 Assessment & Plan Assessment & Plan (1) Overactive bladder: Code(s): N32.81 - Overactive bladder Category: Medical (2) Lower urinary tract symptoms: Code(s): R39.9 - Unspecified symptoms and signs involving the genitourinary system Category: Medical (3) Overflow incontinence of urine: Code(s): N39.490 - Overflow incontinence Category: Medical (4) Urge urinary incontinence: Code(s): N39.41 - Urge incontinence Category: Medical Plan In office urinalysis results reviewed with the patient today; as noted above. PVR 0 mL. Continue terazosin as discussed and prescribed Discussed and stressed the importance of managing diabetes for improvement lower urinary tract symptoms as well as overall health and well-being. Discussed and stressed the importance of drinking plenty of water daily. Patient denies any urological issues or concerns at this time. Follow-up in 6 month with PVR; or sooner with any issues, concerns, and or questions. Orders: Orders AMB Urinalysis Automated Today Z13.9 - Encounter for screening, unspecified AMB Post Void Residual by ultrasound Today R39.9 - Unspecified symptoms and signs involving the genitourinary system Patient Instructions: The patient had an opportunity to ask questions regarding the treatment plan. All questions were answered. Physical exam, labs, and imaging were discussed and reviewed in detail. As well as risks, benefits, and discussion of treatment choices. No major barriers to understanding were identified. The patient expressed understanding and agreement with the above treatment plan. The patient was made aware they should contact our office by phone for worsening of their current condition, the appearance of new symptoms, or with any questions or concerns. Compliance is encouraged with any medications and follow up testing that is ordered. It is a privilege to be allowed the opportunity to participate in? your urological care.? Again, if you have any questions or concerns If you have any questions or concerns please do not hesitate to contact me. The office is [phone]. This note is constructed using voice recognition software. While every effort has been made to ensure accuracy chief operator reformer errors may have been included. Yours sincerely, OMAR Garcia Coding Level of Care Code Est Pt Level 3 (51786) Diagnoses Overactive bladder N32.81 Lower urinary tract symptoms R39.9 Overflow incontinence of urine N39.490 Urge urinary incontinence N39.41
--- OUTSIDE RECORDS SUMMARY | 2024-05-01 16:26 | XMS_ITS | Clinical Summary ---
[facility] Address [address] [place] [address] Care Team Providers Care Skin Toggler Name Role Phone Unavailable Primary Care Provider [...] Procedure Name Priority Date/Time Associated Diagnosis Comments [facility] SCREENING DIGITAL Routine 03/06/2023 2:23 PM EST Encounter for screening mammogram for malignant neoplasm of breast PAP SMEAR Routine 05/04/2017 from Last 3 Months or Most Recently Relevant to Health Maintenance Results * VANESSA SCREENING DIGITAL (03/06/2023 2:23 PM EST) Anatomical Region Laterality Modality Mammography 03/06/2023 1:27 PM EST Narrative 03/06/2023 2:23 PM EST [facility] Diagnostic Imaging Department [address] [place], [place] [id number] Patient: ??LIN MYERS ?/Age/Sex: 1970 - 52 - F Unit#: ??[id number] ? Location/Status: ??SPDIMAM/REG CLI ? Mnemonic/Ordering Site: ??DIGSC/SPMAM Ordering Physician: ??JAYLIN GODDARD GALPatt [facility] Screening Digital - 03/06/23 - 1344 Report Status:Signed EXAM: [facility] Screening Digital EXAM DATE AND TIME: 03/06/2023 1:45 PM HISTORY: ??Annual screening COMPARISON: ??Multiple exams dating back to 2007 TECHNIQUE: Bilateral digital breast tomosynthesis was performed in the CC and MLO projections. Computer aided detection with Nine Star 3D 3.1 was employed. TISSUE DENSITY: b. [...] Procedure Note Natali Bailon MD - 10/02/2023 [facility] Diagnostic Imaging Department [address] [place] [id number] Patient: LIN MYERS D.O.B./Age/Sex: 1970 - 52 - F Unit#: [id number] Location/Status: SPDIMAM/REG CLI Mnemonic/Ordering Site: [facility] Ordering Physician: JAYLIN GODDARD CNM [facility] Screening Digital - 03/06/23 - 1344 Report Status:Signed EXAM: [facility] Screening Digital EXAM DATE AND TIME: 03/06/2023 1:45 PM HISTORY: Annual screening COMPARISON: Multiple exams dating back to 2007 TECHNIQUE: Bilateral digital breast tomosynthesis was performed in the CCand MLO projections. Computer aided detection with Nine Star 3D 3.1was employed. TISSUE DENSITY: b. There [...] RESULTING AGENCY - 05/08/2017 10:39 AM EDT [id number] RESULTS OF GEN-PROBE APTIMA COMBO 2 ASSAY CHLAMYDIA: ?NEGATIVE N. GONORRHOEAE: ? NEGATIVE DM OJEDA M.D., PATHOLOGIST (CASE ELECTRONICALLY SIGNED 05 08 2017) CLINICAL INFORMATION: Z12.4, HORMONES. Z01.419 ENCOUNTER FOR GYNECOLOGICAL EXAMINATION (GENERAL) (ROUTINE) WITHOUT ABNORMAL FINDINGS SOURCE: THINPREP PAP FOR CT/GC GROSS DESCRIPTION: THINPREP VIAL RECEIVED. PHYSICIANS ELAINE WATSON/#[phone]/ Elaine Watson [facility] LAB CYTOLOGY ORDERABLES Final Result HISTORICAL TESTING LAB RESULTING AGENCY from Last 3 Months or Most Recently Relevant to Health Maintenance
== END 2024-05-01 15:10 | disposition home or self-care (01) ==
LOC: HO.HUSH 14:04
PROVIDERS: PCP Internal Medicine; Visit Provider Nurse Practitioner Family
DX: N32.81 Overactive bladder (principal); R39.9 Unspecified symptoms and signs involving the genitourinary system; N39.490 Overflow incontinence; N39.41 Urge incontinence; Z13.9 Encounter for screening, unspecified
CPT/HCPCS: 99213

== ENCOUNTER → 2024-05-01 14:04 | Outpatient (BNVA) | payer OTHER, SELFPAY | PROVIDERS: PCP Internal Medicine; Visit Provider Nurse Practitioner Family | DX: N32.81 Overactive bladder (principal); N39.490 Overflow incontinence; N39.41 Urge incontinence; R39.9 Unspecified symptoms and signs involving the genitourinary system | CPT/HCPCS: 51798; 81003; 99212 ==

== ENCOUNTER 2024-05-03 15:11 | Outpatient (REF) | payer OTHER, SELFPAY | END 2024-05-03 15:12 | disposition home or self-care (01) | LOC: HO.LNP 15:11 | PROVIDERS: PCP Internal Medicine; Visit Provider Obstetrics & Gynecology | DX: R87.610 Atypical squamous cells of undetermined significance on cytologic smear of cervix (ASC-US) (principal) | CPT/HCPCS: 57454; 88305 ==

== ENCOUNTER 2024-05-03 15:11 | Outpatient (AMB) | payer OTHER, SELFPAY ==
--- NOTE | 2024-05-03 15:35 | MHC.OFFVIS ---
Vital Signs 05/03/24 15:43 Height 5 ft 2 in Weight 164 lb BMI 30.0 Intake Visit Reasons: Colposcopy Care Team Coordinator Scheduler Required: Yes Care Team Coordinator Scheduler Language: Back End Engineer Services: Care Team Coordinator Scheduler Present (in person) Care Team Coordinator Scheduler Name: Ginger StrongVERNA shipman Information Interpreted: non-clinical & clinical Marketing Manager Health Communications: Marketing Manager Health Communications Present (VERNA Patel) Accompanied by: Self / Same As Patient Allergies metformin Allergy (Intermediate, Verified 05/03/24 15:36) stomach upset dulaglutide [From Trulicity] Adverse Reaction (Severe, Verified 05/03/24 15:36) blurry vision, abdominal pain insulin glargine [From Toujeo Max U-300 SoloStar] Adverse Reaction (Intermediate, Verified 05/03/24 15:36) Dizziness cats, dogs Allergy (Intermediate, Uncoded 05/01/24 15:05) Agitated many environmental allergies Allergy (Intermediate, Uncoded 05/01/24 15:05) Flushing Is last menstrual period known: No Post menopausal: Yes Patient : No HPI Comments Details: Presenting for abnormal Pap smear showing ascus/HPV negative, previous Pap smear a year ago was ASCUS HPV positive, colpo biopsy ECC was negative PFSH Medical History Chronic idiopathic constipation Epistaxis Overflow incontinence of urine FCI (current) use of insulin Obesity due to excess calories DM2 (diabetes mellitus, type 2) Urge urinary incontinence Lumbar pain Mild recurrent major depression Obesity (BMI 30-39.9) Hot flashes Pterygium of both eyes Depression with anxiety Daytime sleepiness GERD (gastroesophageal reflux disease) Polyarthralgia Left hand pain Obese Pure hypercholesterolemia Diabetes mellitus Surgical History Cataract History of ectopic Family History Father Diabetes Hypertension Mother Diabetes Hypertension Family/Other FH: mental illness Brother No problems noted. Sister No problems noted. Social History Housing: Apartment Alcohol intake: current Alcohol intake frequency: holidays/special occasions only Alcohol type: wine Patient Tobacco Use Status: Never used Tobacco e-Cigarette/Vaping Use: Never Used Second Hand Smoke Exposure: No Patient : No service: No Current occupational status: unemployed Cognitive needs: No Hearing needs: No Vision needs: No Female Reproductive History Menstrual Age of Menarche: 10 Review of Systems Const All systems reviewed & are unremarkable except as noted in HPI and below Reports as per HPI and Reports no additional complaints GI Reports no additional complaints Reports no additional complaints Physical Exam Vital Signs: BMI result Body Mass Index 30.0 Office Procedures Colposcopy Colposcopy: Pre-Procedure Counseling: Before beginning the procedure, I conducted comprehensive counseling with the patient. We thoroughly discussed the procedure itself, including its details, alternatives, and all associated risks. This included but not limited to the following complications such as bleeding, infection, and injury to the vagina, bladder, and vessels, as well as the potential need for transfusion with all its associated risks. Subsequently, the patient sign the consent. Pap smear result: Ascus/HPV negative Procedure: During the procedure, the following steps were performed: A speculum was inserted, and acetic acid was applied. Colposcopy was conducted, allowing visualization of the transformation zone. Acetowhite lesions were identified at the 4+ 11+ 1 o'clock position. Cervical biopsies were obtained from the 4+ 11+ 1 o'clock position, followed by an endocervical curettage (ECC). Vaginoscopy of the upper vagina revealed no evidence of aceto-white lesions. Hemostasis was achieved using Monsel solution, and the patient tolerated the procedure well. Post-Procedure Instructions: The patient was advised to promptly contact the office or the after hours answering service or go to the emergency room if experiencing a temperature exceeding 100.4?F, abdominal pain, nausea/vomiting, or bleeding. Additionally, the patient was instructed to abstain from vaginal intercourse and bathtub use. The patient confirmed understanding of these instructions. Discharge Instructions: The patient was instructed to schedule a follow-up appointment in 2 weeks for further evaluation and management. Please note that this note was generated using a voice recognition program, and errors may have occurred during wash oil pump operator. [id number] of cervix including upper vagina with biopsy and ECC Procedure code (CPT) selection complete Assessment & Plan Assessment & Plan (1) ASCUS of cervix with negative high risk HPV: Code(s): R87.610 - Atypical squamous cells of undetermined significance on cytologic smear of cervix (ASC-US) Category: Medical Plan: Discussed with the patient the result of her abnormal pap, its significance, risk of progression, persistence, and regression. the false positive/negative rate of a Pap smear as a screening test in detecting cervical cancer and the indication for a diagnostic test -colposcopy, biopsy, endocervical curettage. The patient verbalized understanding and agreed with the plan, all questions answered. Colpo biopsy ECC done, see procedure note Orders: Orders AMB Colposcopy Today R87.610 - Atypical squamous cells of undetermined significance on cytologic smear of cervix (ASC-US) Coding Level of Care Code Procedure Only Diagnoses ASCUS of cervix with negative high risk HPV R87.610 CPT Codes Colposcopy - CPT: 67818-Ylarlrbjg of cervix including upper vagina with biopsy and ECC ([id number])
== END 2024-05-03 15:55 | disposition home or self-care (01) ==
LOC: HO.HWS 15:11
PROVIDERS: PCP Internal Medicine; Visit Provider Obstetrics & Gynecology
DX: R87.610 Atypical squamous cells of undetermined significance on cytologic smear of cervix (ASC-US) (principal)
CPT/HCPCS: 57454

== ENCOUNTER 2024-05-09 08:49 | Outpatient (REF) | payer OTHER, SELFPAY ==
[2024-05-09 11:42] LABS: Creatinine Urine 10.46 mg/dL; Microalbum/Creatinine Ratio Ur 95.6 ug/mg cr (<30)
[2024-05-09 11:49] LABS: Vitamin B12 1587 pg/mL (200-900)
[2024-05-09 11:52] LABS: Alanine Aminotransferase 34 U/L (0-31); Albumin Level 4.4 g/dL (3.5-5.0); Alkaline Phosphatase 94 U/L (39-117); Anion Gap 11 (12-20); Aspartate Amino Transferase 22 U/L (5-31); Bilirubin Total 0.5 mg/dL (0.0-1.0); Blood Urea Nitrogen 8 mg/dL (9-16); Calcium 9.5 mg/dL (8.4-10.2); Carbon Dioxide 28 mmol/L (22-29); Chloride 98 mmol/L (96-108); Cholesterol 262 mg/dL (<200); Estimated Glomerular Filt Rate > 60; Glucose Fasting 369 mg/dL (60-99); HDL Cholesterol 37 mg/dL (>40); LDL Cholesterol Calculated 152 mg/dL (<100); Potassium 3.7 mmol/L (3.3-5.1); Sodium 133 mmol/L (135-145); Total Protein 7.8 g/dL (6.5-8.0); Triglycerides 369 mg/dL (<150); Vitamin D 25-OH Total 46.7 ng/mL (>30)
== END 2024-05-09 08:50 | disposition home or self-care (01) ==
LOC: HO.LAB 08:49
PROVIDERS: PCP Internal Medicine; Visit Provider Internal Medicine
DX: E11.65 Type 2 diabetes mellitus with hyperglycemia (principal); R10.9 Unspecified abdominal pain; M54.50 Low back pain, unspecified; F33.0 Major depressive disorder, recurrent, mild; K21.9 Gastro-esophageal reflux disease without esophagitis; Z79.4 Long term (current) use of insulin; E53.8 Deficiency of other specified B group vitamins; R80.9 Proteinuria, unspecified; E55.9 Vitamin D deficiency, unspecified; E78.5 Hyperlipidemia, unspecified
CPT/HCPCS: 36415; 80053; 80061; 82043; 82306; 82570; 82607; 82746; 96127; 99212

== ENCOUNTER 2024-05-09 08:49 | Outpatient (AMB) | payer OTHER, SELFPAY ==
--- NOTE | 2024-05-09 08:52 | A.OFFPC_ITS ---
Vital Signs 05/09/24 08:53 Height 5 ft 2 in Weight 163 lb BMI 29.8 BP 126/80 Blood Pressure Location Lt brachial Position Sitting Intake Visit Reasons: right lower abdominal pain Ornamenter Hand Required: Yes Ornamenter Hand Language: Health Program Director Name: Tammy Swanson MD Information Interpreted: non-clinical & clinical Accompanied by: Self / Same As Patient Allergies metformin Allergy (Intermediate, Verified 05/09/24 09:17) stomach upset dulaglutide [From Trulicity] Adverse Reaction (Severe, Verified 05/09/24 09:17) blurry vision, abdominal pain insulin glargine [From Toujeo Max U-300 SoloStar] Adverse Reaction (Intermediate, Verified 05/09/24 09:17) Dizziness cats, dogs Allergy (Intermediate, Uncoded 05/09/24 09:17) Agitated many environmental allergies Allergy (Intermediate, Uncoded 05/09/24 09:17) Flushing Medication List - Last Reconciled 05/09/24 by Tammy Swanson MD blood-glucose meter (OneTouch Ultra2 Meter) As directed cetirizine 10 mg PO DAILY 30 days epinephrine IM famotidine (Pepcid) 20 mg PO BID ketotifen fumarate 0.025%(0.035%) 0 drps ophthalmic (eye) lancets (Comfort EZ Lancets) As directed [One touch test strips As directed] simethicone (Gas Relief (simethicone)) 125 mg PO TID-QID PRN terazosin 2 mg (2 x 1 mg) PO BEDTIME 90 days valacyclovir 500 mg PO BID [vaniqua 11.5 % cram As directed] Tobacco use date assessed: 03/04/24 Dental Screening Dental Screen Date: 03/04/24 HPI HPI Comments History of Present Illness Details The patient is a 53-year-old female presenting with right and left upper quadrant abdominal pain. She experiences a pain that started in her back that she initially mistook for a cramp. The patient has previously consulted a head filter press tender and insurance follow up rep, both of whom directed her to seek primary care due to the severity of her symptoms. Unfortunately, she denies noticing any visible rash upon evaluation, but persists in detailing the intense itching nightly. Mild major depression in remission. Her medical history includes poorly controlled Type 2 Diabetes Mellitus, with an A1c level of 14. Attempts to manage her condition have been hampered by adverse reactions to Metformin (causing severe abdominal pain) and Trulicity (blurred vision). She has declined insulin, preferring oral medications due to concerns over side effects and inconvenience. She is noncompliant with medications. GERD stable with medications. Additionally, she is diagnosed with hypertension, managed with satisfactory blood pressure readings. She suspects issues related to her gallbladder due to episodes of abdominal pain and the ultrasound is ordered for further assessment of potential cholecystitis. [facility] Medical History (Updated 05/09/24 @ 09:31 by Tammy Swanson MD) Chronic idiopathic constipation Epistaxis Overflow incontinence of urine FPC (current) use of insulin Obesity due to excess calories DM2 (diabetes mellitus, type 2) Urge urinary incontinence Lumbar pain Mild recurrent major depression Obesity (BMI 30-39.9) Hot flashes Pterygium of both eyes Depression with anxiety Daytime sleepiness GERD (gastroesophageal reflux disease) Polyarthralgia Left hand pain Obese Pure hypercholesterolemia Diabetes mellitus Surgical History Cataract History of ectopic Family History Father Diabetes Hypertension Mother Diabetes Hypertension Family/Other FH: mental illness Brother No problems noted. Sister No problems noted. Social History Housing: Apartment Alcohol intake: current Alcohol intake frequency: holidays/special occasions only Alcohol type: wine Patient Tobacco Use Status: Never used Tobacco e-Cigarette/Vaping Use: Never Used Second Hand Smoke Exposure: No service: No Current occupational status: unemployed Cognitive needs: No Hearing needs: No Vision needs: No Female Reproductive History Menstrual Age of Menarche: 10 Questionnaire PHQ-9 Over the last 2 weeks, how often have you been bothered by any of the following problems? 1. Little interest or pleasure in doing things: not at all 2. Feeling down, depressed, or hopeless: not at all 3. Trouble falling or staying asleep, or sleeping too much: not at all 4. Feeling tired or having little energy: not at all 5. Poor appetite or overeating: not at all 6. Feeling bad about yourself - or that you are a failure or have let yourself or your family down: not at all 7. Trouble concentrating on things, such as reading the newspaper or watching television: not at all 8. Moving or speaking so slowly that other people could have noticed. Or the opposite - being so fidgety or restless that you have been moving around a lot more than usual: not at all 9. Thoughts that you would be better off or of hurting yourself in some way: not at all Total score: 0 Depression Screening Interpretation: Negative Depression Screening Done: Yes 15377 - PHQ-9 Billing: Yes Source: Developed by Drs. Jack Webster, Renetta Parker, Fan Dotson and colleagues, with an educational nuris from [employer]. Thrive Questionnaire Date Thrive assessed: 05/09/24 I am a: Patient What is your living situation today?: I have a steady place to live Within the past 12 months, did the food you bought not last and you didn't have the money to get more?: Never true Within the past 12 months, did you worry whether your food would run out before you got money to buy more?: Never true Do you have trouble paying for medicines?: No Do you have trouble getting transportation to medical appointments?: No Do you have trouble paying your heating and electricity bill?: No Do you have trouble taking care of your child, family member or friend?: No Do you have trouble with day-to-day activities such as bathing, preparing meals, shopping, managing finances, etc.?: No Are you currently unemployed and looking for a job?: No Are you interested in more education?: No Please select the resources that you would like help with: None Currently or been in a relationship where the following occur: No concerns reported THRIVE Score: 0 AUDIT C Alcohol Use Questionnaire (AUDIT-C) 1. How often do you have a drink containing alcohol?: Never Total Score: 0 Score Reviewed/Action Taken: No SWATHI-7 AMB Questionnaire SWATHI-7 Date SWATHI - 7 assessed: 05/09/24 Feeling nervous, anxious, or on edge: 0 = Not at all Not being able to stop or control worryin = Not at all Worrying too much about different things: 0 = Not at all Trouble relaxin = Not at all Being so restless that it is hard to sit still: 0 = Not at all Becoming easily annoyed or irritable: 0 = Not at all Feeling afraid as if something awful might happen: 0 = Not at all Total SWATHI-7 score (0-4 normal; 5-9 mild; 10-14 moderate; 15-21 severe): 0 Source: Developed by Drs. Jack Webster, Renetta Parker, Fan Dotson and colleagues, with an educational nuris from [employer]. SWATHI-7 Assessment Billing SWATHI-7 Assessment Tool: SWATHI-7 Assessment 37430 Review of Systems Const All systems reviewed & are unremarkable except as noted in HPI and below Card Denies chest pain at rest, Denies chest pain with activity, Denies edema, Denies irregular heart rhythm, Denies claudication, Denies dyspnea, Denies dyspnea on exertion, Denies orthopnea, Denies paroxysmal nocturnal dyspnea and Denies slow heart rate Resp Denies cough, Denies dyspnea and Denies dyspnea on exertion GI Denies abdominal pain, Denies change in bowel habits, Denies excessive flatus, Denies nausea and Denies vomiting Denies urinary incontinence, Denies urinary hesitancy and Denies urinary urgency Neuro Denies lack of coordination Physical exam (Primary Care) Vital Signs: Last Vital Signs BP 126/80 05/09/24 08:53 BMI result Body Mass Index 29.8 Tobacco/Smoking Status: Tobacco use Status Tobacco use date assessed 03/04/24 05/09/24 08:58 Patient Tobacco Use Status Never used Tobacco 05/09/24 08:58 e-Cigarette/Vaping Use Never Used 05/09/24 08:58 PHQ-9: PHQ-9 Score PHQ-9: Total score 0 05/09/24 09:21 Depression Screening Interpretation: Negative Thrive Assessment: Date of Thrive Assessment Date Thrive assessed 05/09/24 05/09/24 08:58 Currently or been in a relationship where the following occur: No concerns reported Resp Effort & Inspection: normal respiratory effort Auscultation: clear to auscultation bilaterally Cardio Jugular venous distension: no JVD Rate: regular rate Rhythm: regular rhythm Heart sounds: S1 normal heart sound present and S2 normal heart sound present Extrem General: Yes full ROM Coding Level of Care Code Est Pt Level 4 (89097) Complex EM visit Add On G2211 Diagnoses Uncontrolled diabetes mellitus with hyperglycemia, without long-term current use of insulin E11.65 Abdominal pain R10.9 Lumbar pain M54.50 Mild recurrent major depression F33.0 Type 2 diabetes mellitus with hyperglycemia, with long-term current use of insulin E11.65; Z79.4 Diabetes mellitus type: type 2 Diabetes mellitus snf insulin use: with snf use Diabetes mellitus complication status: with hyperglycemia Gastroesophageal reflux disease, unspecified whether esophagitis present K21.9 Esophagitis presence: esophagitis presence not specified Additional Codes SWATHI-7 Assessment Billing - SWATHI-7 Assessment Tool: SWATHI-7 Assessment 83079 ([id number]) PHQ-9 - 24233 - PHQ-9 Billing: Yes ([id number]) Time Spent (min) 23 Assessment & Plan Assessment & Plan (1) Uncontrolled diabetes mellitus with hyperglycemia, without long-term current use of insulin: Code(s): E11.65 - Type 2 diabetes mellitus with hyperglycemia Category: Medical (2) Abdominal pain: Code(s): R10.9 - Unspecified abdominal pain Category: Medical (3) Lumbar pain: Code(s): M54.50 - Low back pain, unspecified Category: Medical (4) Mild recurrent major depression: Code(s): F33.0 - Major depressive disorder, recurrent, mild Category: Medical (5) Diabetes mellitus: Code(s): E11.9 - Type 2 diabetes mellitus without complications Category: Medical Qualifiers: Diabetes mellitus type: type 2 Diabetes mellitus buttermaker continuous churn insulin use: with buttermaker continuous churn use Diabetes mellitus complication status: with hyperglycemia Qualified Code(s): E11.65 - Type 2 diabetes mellitus with hyperglycemia; Z79.4 - FPC (current) use of insulin (6) GERD (gastroesophageal reflux disease): Code(s): K21.9 - Gastro-esophageal reflux disease without esophagitis Category: Medical Qualifiers: Esophagitis presence: esophagitis presence not specified Qualified Code(s): K21.9 - Gastro-esophageal reflux disease without esophagitis Plan I will prescribe Jardiance for her Type 2 Diabetes Mellitus to improve glycemic control. Mounjaro will be considered depending on insurance approval. Monitoring her A1c remains pivotal. Her hypertension is well-managed currently. Investigation of her suspected cholecystitis with an ultrasound is essential. Handling of her rash might improve with diabetes management. Back pain management will involve posture adjustments and conservative treatments to assess effectiveness. Patient was informed and verbally consented to the use of an ambient scribe for clinic note documentation during this visit. I discussed potential management options for her diabetes, emphasizing the role of Jardiance to potentially improve her glycemic control, and explained insurance-related challenges associated with [place]. I highlighted the exemplary controlled state of her hypertension. For her rash, I suggested that improved diabetes management might reduce symptoms. We talked about the need for an ultrasound to explore possible gallbladder-related problems. I provided insight on conservative management strategies targeting the back pain, suggesting further assessment if unremitting. Orders: Orders Lipid Panel Today E78.5 - Hyperlipidemia, unspecified Vitamin B12 and Folate Today E53.8 - Deficiency of other specified B group vitamins Comprehensive [place]. Panel Fast Today E11.65 - Type 2 diabetes mellitus with hyperglycemia US abdomen complete Today R10.9 - Unspecified abdominal pain Microalbumin, Random (w Creat) Today R80.9 - Proteinuria, unspecified Vitamin D 25-OH Total Today E55.9 - Vitamin D deficiency, unspecified Referrals Endocrinology Referral E11.65 - Type 2 diabetes mellitus with hyperglycemia Medications: New empagliflozin (Jardiance) 10 mg PO DAILY 90 tabs 1RF 90 days pioglitazone 15 mg PO DAILY 90 tabs 1RF 90 days Refilled cetirizine 10 mg PO DAILY 30 tabs 3RF 30 days J30.1 - Allergic rhinitis due to pollen Patient Instructions: - Start taking Jardiance as prescribed. - Follow up for ultrasound of gallbladder. - Monitor blood sugar levels regularly. - Seek advice if back pain or rash persists or worsens. - Return for follow-up on diabetes management and reassessment of back pain.
[2024-05-09 08:53] VITALS: BP 126/80; BMI 29.8
== END 2024-05-09 09:31 | disposition home or self-care (01) ==
LOC: HO.HMCH 08:50
PROVIDERS: PCP Internal Medicine; Visit Provider Internal Medicine
DX: E11.65 Type 2 diabetes mellitus with hyperglycemia (principal); F33.0 Major depressive disorder, recurrent, mild; Z79.4 Long term (current) use of insulin; R10.9 Unspecified abdominal pain; M54.50 Low back pain, unspecified; K21.9 Gastro-esophageal reflux disease without esophagitis

== ENCOUNTER 2024-05-24 07:59 | Outpatient (AMB) | payer OTHER, SELFPAY ==
[2024-05-24 08:00] VITALS: BP 128/74; PULSE 72; O2SAT 100; BMI 29.4
--- NOTE | 2024-05-24 08:00 | A.OFFVIS_ITS ---
Vital Signs 05/24/24 08:00 Height 5 ft 2 in Weight 160 lb 14.999 oz BMI 29.4 BP 128/74 Blood Pressure Location Rt brachial Position Sitting Pulse 72 Pulse Source Pulse Oximeter Pulse Oximetry (%) 100 Oxygen Delivery Method Room Air Intake Visit Reasons: Type 2 diabetes mellitus with hyperglycemia Intake Note: New patient internally referred by PCP to establish care for T2DM Last Diabetic Eye exam: Last Podiatry Visit: Random Glucose: 289 mg/dL HgA1C: 12.0%, 05/24/2024 Speech Therapy Director Required: Yes Speech Therapy Director Language: Wrecking Car Driver Services: Speech Therapy Director Offered & Declined Speech Therapy Director Name: VERNA Sanchez/TANYA STEPHENS Information Interpreted: non-clinical & clinical Accompanied by: Self / Same As Patient Allergies metformin Allergy (Intermediate, Verified 05/24/24 08:12) stomach upset dulaglutide [From Trulicity] Adverse Reaction (Severe, Verified 05/24/24 08:12) blurry vision, abdominal pain insulin glargine [From Toujeo Max U-300 SoloStar] Adverse Reaction (Intermediate, Verified 05/24/24 08:12) Dizziness cats, dogs Allergy (Intermediate, Uncoded 05/24/24 08:12) Agitated many environmental allergies Allergy (Intermediate, Uncoded 05/24/24 08:12) Flushing Medication List - Last Reconciled 05/24/24 by Camille Malone PA-C blood-glucose meter (OneTouch Ultra2 Meter) As directed cetirizine 10 mg PO DAILY 30 days epinephrine IM famotidine (Pepcid) 20 mg PO BID ketotifen fumarate 0.025%(0.035%) 0 drps ophthalmic (eye) lancets (Comfort EZ Lancets) As directed [One touch test strips As directed] simethicone (Gas Relief (simethicone)) 125 mg PO TID-QID PRN terazosin 2 mg (2 x 1 mg) PO BEDTIME 90 days valacyclovir 500 mg PO BID [vaniqua 11.5 % cram As directed] HPI HPI Type 2 diabetes mellitus with hyperglycemia: Details: Patient is a 53-year-old female with a significant past medical history of uncontrolled type 2 diabetes, obesity, GERD, hyperlipidemia presenting today for consultation regarding her diabetes. Tory is here today to help with any translation Endo-she was diagnosed with diabetes in 2013. She was last seen in endocrinology in 2021. She has been on insulin in the past but recently has not taken this. Her current A1c is 12. She is currently on Jardiance 10 mg daily. She is prescribed Actos but has not been taking this. -she states that she tried Actos for a couple days and had GI upset. She has only been on the Jardiance for about a week. She says she tolerates it okay. Upon further review she does have a yeast infection right now. Tolerated humalog in the past and tresiba but refuses to take this. She says that she will not do daily insulin injections. In the past she did so many that she would end up with little abscesses/cyst. That she does not like it and will not do this. In the past she has tried Trulicity but it caused abdominal discomfort, metformin caused GI upset, Toujeo caused dizziness, actos causes GI upset CV: Blood pressure today is 128/74. Not on any antihypertensives. Not on any statin. Last cholesterol was elevated. [facility] Medical History Chronic idiopathic constipation Epistaxis Overflow incontinence of urine alf (current) use of insulin Obesity due to excess calories DM2 (diabetes mellitus, type 2) Urge urinary incontinence Lumbar pain Mild recurrent major depression Obesity (BMI 30-39.9) Hot flashes Pterygium of both eyes Depression with anxiety Daytime sleepiness GERD (gastroesophageal reflux disease) Polyarthralgia Left hand pain Obese Pure hypercholesterolemia Diabetes mellitus Surgical History Cataract History of ectopic Family History Father Diabetes Hypertension Mother Diabetes Hypertension Family/Other FH: mental illness Brother No problems noted. Sister No problems noted. Social History Housing: Apartment Alcohol intake: current Alcohol intake frequency: holidays/special occasions on ly Alcohol type: wine Patient Tobacco Use Status: Never used Tobacco e-Cigarette/Vaping Use: Never Used Second Hand Smoke Exposure: No service: No Current occupational status: unemployed Cognitive needs: No Hearing needs: No Vision needs: No Female Reproductive History Menstrual Age of Menarche: 10 Physical Exam Vital Signs: Last Vital Signs Pulse 72 05/24/24 08:00 BP 128/74 05/24/24 08:00 Pulse Ox 100 05/24/24 08:00 Oxygen Delivery Method Room Air 05/24/24 08:00 BMI result Body Mass Index 29.4 Const Orientation/consciousness: patient oriented x3 HEENT Ears: hearing grossly normal bilaterally Neck Thyroid: Thyroid normal Lymphatic: no lymphadenopathy noted Resp Auscultation: clear to auscultation bilaterally Cardio Rate: regular rate Rhythm: regular rhythm Heart sounds: S1 normal heart sound present and S2 normal heart sound present Skin General skin exam: no rashes or lesions noted Neuro General: patient oriented x3, gait normal and no focal motor deficits Results AMB Hemoglobin A1c AMB Hemoglobin A1c 12.0 % Last Edit by VERNA Sanchez on 05/24/24 08:5 8 Results Reviewed Results Reviewed: Laboratory Last Values Glucose (Clinic) 286 mg/dL (60-115) H 05/24/24 08:08 Laboratory Tests 03/04/24 05/09/24 05/09/24 13:15 10:05 10:06 Creatinine 0.70 Estimated GFR > 60 Fasting Glucose 369 H* Hgb A1c (Clinic) 14.0 H Triglycerides 369 H Cholesterol 262 H LDL Cholesterol, Calc 152 H HDL Cholesterol 37 L Urine Creatinine 10.46 Urine Microalbumin 10.0 Microalb/Creat Ratio 95.6 H Assessment & Plan Assessment & Plan (1) Uncontrolled diabetes mellitus with hyperglycemia, without long-term current use of insulin: Code(s): E11.65 - Type 2 diabetes mellitus with hyperglycemia Category: Medical Plan: 65 minutes was spent today in [id number] time discussing diabetes, the pathophysiology of diabetes, the differences between type 1 and type 2 diabetes and complications associated with diabetes. We reviewed complications such as kidney disease, amputations, increased risk of infections, stroke, heart attacks etc.. We will start Mounjaro 2.5 mg weekly. We discussed risks and benefits and adverse effects such as nausea, vomiting, increased risk of pancreatitis. She did not tolerate Trulicity or Ozempic. We did discuss that this may also help her with some weight loss. I will start her on glipizide. She will start 5 mg twice a day. Discontinue Jardiance as she currently has a yeast infection in her A1c is 12. Discuss the we can consider restarting this in the future when she lowers her A1c. I did give her a Mobile [employer] Vonnie today in the office and I download of the sea for her. Showed her how to use this. We reviewed diet at length and increasing her protein intake, reducing her carbohydrate and sugar intake. I have encouraged her to increase water and exercise. She will return in 2 weeks for a follow up. Sooner if she needs it. (2) Yeast infection of the vagina: Comment: Exacerbated by elevated blood sugars.... Code(s): B37.31 - Acute candidiasis of vulva and vagina Category: Medical Plan: We will start Diflucan. Discussed that she will need to follow up with Gynecology if not improved. (3) Pure hypercholesterolemia: Code(s): E78.00 - Pure hypercholesterolemia, unspecified Category: Medical Plan: Not currently on a statin. Did discuss that her cholesterol is very high and we should consider starting a medication. She is going to wait on this until she gets used to her new diabetic medications. (4) Obesity (BMI 30-39.9): Code(s): E66.9 - Obesity, unspecified Category: Medical Plan: As above. Orders: Orders AMB Hemoglobin A1c Today E11.65 - Type 2 diabetes mellitus with hyperglycemia, Z79.4 - alf (current) use of insulin Medications: New fluconazole may repeat second dose 72 hrs after first dose if symptoms persist 150 mg PO Q3D 2 tabs 0RF glipizide 5 mg PO BID 180 tabs 0RF tirzepatide (Mounjaro) for 4 weeks 2.5 mg (0.5 mL) subcut QWEEK 2 mL 2RF Coding Level of Care Code New Pt Level 5 (78295) Complex EM visit Add On G2211 Diagnoses Uncontrolled diabetes mellitus with hyperglycemia, without long-term current use of insulin E11.65 Yeast infection of the vagina B37.31 Pure hypercholesterolemia E78.00 Obesity (BMI 30-39.9) E66.9
--- OUTSIDE RECORDS SUMMARY | 2024-05-24 08:03 | XMS_ITS | Clinical Summary ---
[facility] Address [address] [place] [address] Care Team Providers Care Farm Demonstrator Name Role Phone Unavailable Primary Care Provider [...] Vaccine (2023-2 5 season) 2023 Influenza Vaccine (Season Ended) 2024 11/30/2012, 12/16/2011 Breast Cancer Screening 03/06/2025 03/06/2023 HIB [...] age to complete this topic Meningococcal B Vaccine Aged Out No l onger eligible based on patient's age to complete [...] Procedure Name Priority Date/Time Associated Diagnosis Comments [facility] SCREENING DIGITAL Routine 03/06/2023 2:23 PM EST Encounter for screening mammogram for malignant neoplasm of breast PAP SMEAR Routine 05/04/2017 from Last 3 Months or Most Recently Relevant to Health Maintenance Results * VANESSA SCREENING DIGITAL (03/06/2023 2:23 PM EST) Anatomical Region Laterality Modality Mammography 03/06/2023 1:27 PM EST Narrative 03/06/2023 2:23 PM EST [facility] Diagnostic Imaging Department [address] [place] [address] [id number] Patient: ??LIN MYERS ?/Age/Sex: 1970 - Unit#: ??[id number] ? Location/Status: ??SPDIMAM/REG CLI ? Mnemonic/Ordering Site: ??DIGSC/SPMAM Ordering Physician: ??QUINONEZJAYLIN FALLON GALPatt Vanessa Screening Digital - 03/06/23 - 1344 Report Status:Signed EXAM: [facility] Screening Digital EXAM DATE AND TIME: 03/06/2023 1:45 PM HISTORY: ??Annual screening COMPARISON: ??Multiple exams dating back to 2007 TECHNIQUE: Bilateral digital breast tomosynthesis was performed in the CC and MLO projections. Computer aided detection with [employer] 3D 3.1 was employed. TISSUE DENSITY: b. [...] Procedure Note Natali Bailon MD - 10/02/2023 [facility] Diagnostic Imaging Department [address] [place] [address] [id number] Patient: LIN MYERS/Age/Sex: 1970 - 52 - F Unit#: [id number] Location/Status: SPDIMAM/REG CLI Mnemonic/Ordering Site: [facility] Ordering Physician: JAYLIN QUINONEZ CNM Vanessa Screening Digital - 03/06/23 - 1344 Report Status:Signed EXAM: [facility] Screening Digital EXAM DATE AND TIME: 03/06/2023 1:45 PM HISTORY: Annual screening COMPARISON: Multiple exams dating back to 2007 TECHNIQUE: Bilateral digital breast tomosynthesis was performed in the CCand MLO projections. Computer aided detection with [employer] 3D 3.1was employed. TISSUE DENSITY: b. There [...] 1421 Sign date/Time: 03/06/23 1423 us Jaylin Quinonez CNM IMG BI PROCEDURES Final Resul t * Pap smear (05/04/2017) 05/04/2017 Narrative HISTORICAL TESTING LAB RESULTING AGENCY - 05/08/2017 10:39 AM EDT [id number] RESULTS OF GEN-PROBE APTIMA COMBO 2 ASSAY CHLAMYDIA: ?NEGATIVE N. GONORRHOEAE: ? NEGATIVE DM OJEDA M.D., PATHOLOGIST (CASE ELECTRONICALLY SIGNED 05 08 2017) CLINICAL INFORMATION: Z12.4, HORMONES. Z01.419 ENCOUNTER FOR GYNECOLOGICAL EXAMINATION (GENERAL) (ROUTINE) WITHOUT ABNORMAL FINDINGS SOURCE: THINPREP PAP FOR CT/GC GROSS DESCRIPTION: THINPREP VIAL RECEIVED. PHYSICIANS ELAINE WATSON/#[phone]/ Elaine Watson [facility] LAB CYTOLOGY ORDERABLES Final Result HISTORICAL TESTING LAB RESULTING AGENCY from Last 3 Months or Most Recently Relevant to Health Maintenance
[2024-05-24 08:12] LABS: Glucose, Whole Blood 286 mg/dL (60-115)
== END 2024-05-24 09:17 | disposition home or self-care (01) ==
LOC: HO.ENCR 08:00
PROVIDERS: PCP Internal Medicine; Visit Provider Physician Assistant
DX: E11.65 Type 2 diabetes mellitus with hyperglycemia (principal); B37.31 Acute candidiasis of vulva and vagina; E78.00 Pure hypercholesterolemia, unspecified; E66.9 Obesity, unspecified; Z79.4 Long term (current) use of insulin

== ENCOUNTER → 2024-05-24 07:59 | Outpatient (BNVA) | payer OTHER, SELFPAY | PROVIDERS: PCP Internal Medicine; Visit Provider Physician Assistant | DX: E11.65 Type 2 diabetes mellitus with hyperglycemia (principal); B37.31 Acute candidiasis of vulva and vagina; E78.00 Pure hypercholesterolemia, unspecified; E66.9 Obesity, unspecified | CPT/HCPCS: 82947; 83036; 99202 ==

== ENCOUNTER 2024-06-07 08:21 | Outpatient (REF) | payer OTHER, SELFPAY ==
--- OUTSIDE RECORDS SUMMARY | 2024-06-07 10:59 | XMS_ITS | Clinical Summary ---
[facility] Address [address] [place] [address] Care Team Providers Care Ferryboat Helper Name Role Phone Unavailable Primary Care Provider [...] Procedure Name Priority Date/Time Associated Diagnosis Comments [facility] SCREENING DIGITAL Routine 03/06/2023 2:23 PM EST Encounter for screening mammogram for malignant neoplasm of breast PAP SMEAR Routine 05/04/2017 from Last 3 Months or Most Recently Relevant to Health Maintenance Results * VANESSA SCREENING DIGITAL (03/06/2023 2:23 PM EST) Anatomical Region Laterality Modality Mammography 03/06/2023 1:27 PM EST Narrative 03/06/2023 2:23 PM EST [facility] Diagnostic Imaging Department [address] [place] [address] [phone] Patient: ??LIN MYERS ?/Age/Sex: 1970 - Unit#: ??[id number] ? Location/Status: ??SPDIMAM/REG CLI ? Mnemonic/Ordering Site: ??DIGSC/SPMAM Ordering Physician: ??QUINONEZJAYLIN FALLON GALPatt Vanessa Screening Digital - 03/06/23 - 1344 Report Status:Signed EXAM: [facility] Screening Digital EXAM DATE AND TIME: 03/06/2023 1:45 PM HISTORY: ??Annual screening COMPARISON: ??Multiple exams dating back to 2007 TECHNIQUE: Bilateral digital breast tomosynthesis was performed in the CC and MLO projections. Computer aided detection with [employer] 3D 3.1 was employed. TISSUE DENSITY: b. [...] Procedure Note Natali Bailon MD - 10/02/2023 [facility] Diagnostic Imaging Department [address] [place] [address] [id number] Patient: LIN MYERS/Age/Sex: 1970 - 52 - F Unit#: [id number] Location/Status: SPDIMAM/REG CLI Mnemonic/Ordering Site: [facility] Ordering Physician: JAYLIN QUINONEZ CNM Vanessa Screening Digital - 03/06/23 - 1344 Report Status:Signed EXAM: [facility] Screening Digital EXAM DATE AND TIME: 03/06/2023 1:45 PM HISTORY: Annual screening COMPARISON: Multiple exams dating back to 2007 TECHNIQUE: Bilateral digital breast tomosynthesis was performed in the CCand MLO projections. Computer aided detection with [employer] 3D 3.1was employed. TISSUE DENSITY: b. There [...] RESULTING AGENCY - 05/08/2017 10:39 AM EDT [id number] RESULTS OF GEN-PROBE APTIMA COMBO 2 ASSAY CHLAMYDIA: ?NEGATIVE N. GONORRHOEAE: ? NEGATIVE DM OJEDA M.D., PATHOLOGIST (CASE ELECTRONICALLY SIGNED 05 08 2017) CLINICAL INFORMATION: Z12.4, HORMONES. Z01.419 ENCOUNTER FOR GYNECOLOGICAL EXAMINATION (GENERAL) (ROUTINE) WITHOUT ABNORMAL FINDINGS SOURCE: THINPREP PAP FOR CT/GC GROSS DESCRIPTION: THINPREP VIAL RECEIVED. PHYSICIANS ELAINE WATSON/#[phone]/ Elaine Watson [facility] LAB CYTOLOGY ORDERABLES Final Result HISTORICAL TESTING LAB RESULTING AGENCY from Last 3 Months or Most Recently Relevant to Health Maintenance
[2024-06-07 11:53] LABS: Blood Urea Nitrogen 13 mg/dL (9-16); Estimated Glomerular Filt Rate > 60
== END 2024-06-07 08:22 | disposition home or self-care (01) ==
LOC: HO.LAB 08:21
PROVIDERS: Absent Provider Nurse Practitioner Family; PCP Internal Medicine; Visit Provider Physician Assistant
DX: R10.11 Right upper quadrant pain (principal); R14.0 Abdominal distension (gaseous); K21.9 Gastro-esophageal reflux disease without esophagitis; K59.04 Chronic idiopathic constipation; E11.65 Type 2 diabetes mellitus with hyperglycemia; E66.01 Morbid (severe) obesity due to excess calories; Z91.199 Patient's noncompliance with other medical treatment and regimen due to unspecified reason; Z79.85 Long-term (current) use of injectable non-insulin antidiabetic drugs
CPT/HCPCS: 36415; 82565; 82947; 84520; 99212

== ENCOUNTER 2024-06-07 08:21 | Outpatient (AMB) | payer OTHER, SELFPAY ==
--- OUTSIDE RECORDS SUMMARY | 2024-06-07 08:27 | XMS_ITS | Clinical Summary ---
[facility] Address [address] [place] [address] Care Team Providers Care Coordinator Volunteer Services Name Role Phone Unavailable Primary Care Provider [...] Procedure Name Priority Date/Time Associated Diagnosis Comments [facility] SCREENING DIGITAL Routine 03/06/2023 2:23 PM EST Encounter for screening mammogram for malignant neoplasm of breast PAP SMEAR Routine 05/04/2017 from Last 3 Months or Most Recently Relevant to Health Maintenance Results * VANESSA SCREENING DIGITAL (03/06/2023 2:23 PM EST) Anatomical Region Laterality Modality Mammography 03/06/2023 1:27 PM EST Narrative 03/06/2023 2:23 PM EST [facility] Diagnostic Imaging Department [address] [place] [address] [id number] Patient: ??LIN MYERS ?/Age/Sex: 1970 - Unit#: ??[id number] ? Location/Status: ??SPDIMAM/REG CLI ? Mnemonic/Ordering Site: ??DIGSC/SPMAM Ordering Physician: ??QUINONEZJAYLIN FALLON GALPatt Vanessa Screening Digital - 03/06/23 - 1344 Report Status:Signed EXAM: [facility] Screening Digital EXAM DATE AND TIME: 03/06/2023 1:45 PM HISTORY: ??Annual screening COMPARISON: ??Multiple exams dating back to 2007 TECHNIQUE: Bilateral digital breast tomosynthesis was performed in the CC and MLO projections. Computer aided detection with [employer] 3D 3.1 was employed. TISSUE DENSITY: b. [...] Procedure Note Natali Bailon MD - 10/02/2023 [facility] Diagnostic Imaging Department [address] [place] [address] [id number] Patient: LIN MYERS/Age/Sex: 1970 - 52 - F Unit#: [id number] Location/Status: SPDIMAM/REG CLI Mnemonic/Ordering Site: [facility] Ordering Physician: JAYLIN QUINONEZ CNM Vanessa Screening Digital - 03/06/23 - 1344 Report Status:Signed EXAM: [facility] Screening Digital EXAM DATE AND TIME: 03/06/2023 1:45 PM HISTORY: Annual screening COMPARISON: Multiple exams dating back to 2007 TECHNIQUE: Bilateral digital breast tomosynthesis was performed in the CCand MLO projections. Computer aided detection with [employer] 3D 3.1was employed. TISSUE DENSITY: b. There [...] RESULTING AGENCY - 05/08/2017 10:39 AM EDT [id number] RESULTS OF GEN-PROBE APTIMA COMBO 2 ASSAY CHLAMYDIA: ?NEGATIVE N. GONORRHOEAE: ? NEGATIVE DM OJEDA M.D., PATHOLOGIST (CASE ELECTRONICALLY SIGNED 05 08 2017) CLINICAL INFORMATION: Z12.4, HORMONES. Z01.419 ENCOUNTER FOR GYNECOLOGICAL EXAMINATION (GENERAL) (ROUTINE) WITHOUT ABNORMAL FINDINGS SOURCE: THINPREP PAP FOR CT/GC GROSS DESCRIPTION: THINPREP VIAL RECEIVED. PHYSICIANS ELAINE WATSON/#[phone]/ Elaine Watson [facility] LAB CYTOLOGY ORDERABLES Final Result HISTORICAL TESTING LAB RESULTING AGENCY from Last 3 Months or Most Recently Relevant to Health Maintenance
[2024-06-07 08:28] VITALS: BP 112/58; PULSE 61; O2SAT 96; BMI 29.9
--- NOTE | 2024-06-07 08:28 | A.OFFVIS_ITS ---
Vital Signs 06/07/24 08:28 Height 5 ft 2 in Weight 163 lb 9.328 oz BMI 29.9 BP 112/58 L Blood Pressure Location Lt brachial Position Sitting Pulse 61 Pulse Source Pulse Oximeter Pulse Oximetry (%) 96 Oxygen Delivery Method Room Air Intake Visit Reasons: T2DM Intake Note: Patient present today for Type 2 Diabetes Mellitus Last Diabetic eye exam: 02/2024 Last Podiatry Visit: Doesn't have one Random Glucose: 347 mg/dl HgA1C: 12.0% 05/24/24 Traffic Sign Supervisor Required: Yes Traffic Sign Supervisor Language: Distance Education Faculty Liaison Services: Traffic Sign Supervisor Present Information Interpreted: non-clinical & clinical Accompanied by: Mother Allergies metformin Allergy (Intermediate, Verified 06/07/24 08:34) stomach upset dulaglutide [From Trulicity] Adverse Reaction (Severe, Verified 06/07/24 08:34) blurry vision, abdominal pain insulin glargine [From Toujeo Max U-300 SoloStar] Adverse Reaction (Intermediate, Verified 06/07/24 08:34) Dizziness cats, dogs Allergy (Intermediate, Uncoded 06/07/24 08:34) Agitated many environmental allergies Allergy (Intermediate, Uncoded 06/07/24 08:34) Flushing Medication List - Last Reconciled 06/07/24 by Camille Malone PA-C blood-glucose meter (MyndnetTouch Ultra2 Meter) As directed cetirizine 10 mg PO DAILY 30 days epinephrine IM famotidine (Pepcid) 20 mg PO BID fluconazole 150 mg PO Q3D 2 doses ketotifen fumarate 0.025%(0.035%) 0 drps ophthalmic (eye) lancets (Comfort EZ Lancets) As directed [One touch test strips As directed] simethicone (Gas Relief (simethicone)) 125 mg PO TID-QID PRN terazosin 2 mg (2 x 1 mg) PO BEDTIME 90 days valacyclovir 500 mg PO BID [vaniqua 11.5 % cram As directed] HPI HPI T2DM: Details: Patient is a 53-year-old female with a significant past medical history of uncontrolled type 2 diabetes, obesity, GERD, hyperlipidemia presenting today for consultation regarding her diabetes. Eden is here today to help with any translation Endo-she was diagnosed with diabetes in 2013. She has been on insulin in the past but refuses to take this anymore. She has been off of this for a couple years. Her current A1c is 12. She is currently on Mounjaro 2.5 mg and glipizide 5 mg twice a day. CGM-I did give her a Vonnie 3 at our last visit so she may monitor her blood sugars closely at home and see how she responds to certain foods. Her average glucose is 341, she is very hyperglycemic 92% of the time, hyperglycemic 8% of the time, 0% in range, 0% hypoglycemia. G mi 11.5. -she states that this has been stressful to her because if she eats anything it elevates. Still is adamant in refusing insulin. Last night she had fried chicken, beans and rice. She does drink water and diet sodas. Tolerated humalog in the past and tresiba but refuses to take this. She says that she will not do daily insulin injections. In the past she did so many that she would end up with little abscesses/cyst. That she does not like it and will not do this. In the past she has tried Trulicity but it caused abdominal discomfort, metformin caused GI upset, Toujeo caused dizziness, actos causes GI upset. Jardiance was causing frequent yeast infections. CV: Blood pressure today is 112/58. Not on any antihypertensives. Not on any statin. Last cholesterol was elevated. Declines treatment at this time [facility] Medical History Chronic idiopathic constipation Epistaxis Overflow incontinence of urine long-term (current) use of insulin Obesity due to excess calories DM2 (diabetes mellitus, type 2) Urge urinary incontinence Lumbar pain Mild recurrent major depression Obesity (BMI 30-39.9) Hot flashes Pterygium of both eyes Depression with anxiety Daytime sleepiness GERD (gastroesophageal reflux disease) Polyarthralgia Left hand pain Obese Pure hypercholesterolemia Diabetes mellitus Surgical History Cataract History of ectopic Family History Father Diabetes Hypertension Mother Diabetes Hypertension Family/Other FH: mental illness Brother No problems noted. Sister No problems noted. Social History Housing: Apartment Alcohol intake: current Alcohol intake frequency: holidays/special occasions only Alcohol type: wine Patient Tobacco Use Status: Never used Tobacco e-Cigarette/Vaping Use: Never Used Second Hand Smoke Exposure: No service: No Current occupational status: unemployed Cognitive needs: No Hearing needs: No Vision needs: No Female Reproductive History Menstrual Age of Menarche: 10 Physical Exam Vital Signs: Last Vital Signs Pulse 61 06/07/24 08:28 BP 112/58 L 06/07/24 08:28 Pulse Ox 96 06/07/24 08:28 Oxygen Delivery Method Room Air 06/07/24 08:28 BMI result Body Mass Index 29.9 Const Orientation/consciousness: patient oriented x3 HEENT Ears: hearing grossly normal bilaterally Neck Thyroid: Thyroid normal Lymphatic: no lymphadenopathy noted Resp Auscultation: clear to auscultation bilaterally Cardio Rate: regular rate Rhythm: regular rhythm Heart sounds: S1 normal heart sound present and S2 normal heart sound present Skin General skin exam: no rashes or lesions noted Neuro General: patient oriented x3, gait normal and no focal motor deficits Results Reviewed Results Reviewed: Laboratory Tests 05/09/24 05/24/24 10:06 08:57 Creatinine 0.70 Estimated GFR > 60 Hgb A1c (Clinic) 12.0 H Assessment & Plan Assessment & Plan (1) Uncontrolled diabetes mellitus with hyperglycemia, without long-term current use of insulin: Code(s): E11.65 - Type 2 diabetes mellitus with hyperglycemia Category: Medical Plan: We spent 45 minutes in gzap-iy-bnbo time today discussing her diabetes in the complications associated with her uncontrolled diabetes. She is aware of the increased risk of a stroke, heart attack, dialysis, amputations etc.. She is able to repeat this back to me that she is aware the she is at risk for a significant, life altering complication. She still does not want any insulin. She states that she will not do it and she can not tolerate many diabetic medications. At this point she is tolerating the Mounjaro in the glipizide. I will increase doses of this today. Increase Mounjaro to 5 mg weekly. Increase glipizide to 10 mg twice a day. We will trial metformin at a lower dose to see if she tolerates this at all. We spent extensive time discussing her diet. We discussed carbohydrates/glucose. Advised that she needs to increase her protein intake, eat more vegetables and limit sweets. I have also advised her to avoid all soda and juice. We discussed using the carbohydrates that she does eat as fuel and advised her to increase her physical activity. I have encouraged her to walk for 30 minutes after eating meals as tolerated. (2) Obesity due to excess calories: Code(s): E66.09 - Other obesity due to excess calories Category: Medical Plan: as above (3) Non-compliance with treatment: Code(s): Z91.199 - Patient's noncompliance with other medical treatment and regimen due to unspecified reason Category: Medical Plan: as above aware of risks (4) Pure hypercholesterolemia: Code(s): E78.00 - Pure hypercholesterolemia, unspecified Category: Medical Plan: declines meds at this point again aware of risks Medications: New glipizide 10 mg PO BID 180 tabs 0RF metformin ER 500 mg PO DAILY 90 tabs 0RF tirzepatide (Mounjaro) 5 mg (0.5 mL) subcut QWEEK 2 mL 3RF Coding Level of Care Code Est Pt Level 4 (09098) Complex EM visit Add On G2211 Diagnoses Uncontrolled diabetes mellitus with hyperglycemia, without long-term current use of insulin E11.65 Obesity due to excess calories E66.09 Non-compliance with treatment Z91.199 Pure hypercholesterolemia E78.00
[2024-06-07 08:40] LABS: Glucose, Whole Blood 347 mg/dL (60-115)
== END 2024-06-07 09:09 | disposition home or self-care (01) ==
LOC: HO.ENCR 08:22
PROVIDERS: PCP Internal Medicine; Visit Provider Physician Assistant
DX: E11.65 Type 2 diabetes mellitus with hyperglycemia (principal); E66.09 Other obesity due to excess calories; Z91.199 Patient's noncompliance with other medical treatment and regimen due to unspecified reason; E78.00 Pure hypercholesterolemia, unspecified

== ENCOUNTER 2024-06-07 09:39 | Outpatient (AMB) | payer OTHER, SELFPAY ==
--- NOTE | 2024-06-07 09:45 | MHC.OFFVIS ---
Vital Signs 06/07/24 10:19 Height 5 ft 2 in Weight 163 lb BMI 29.8 BP 112/58 L Position Sitting Pulse 60 Pulse Source Pulse Oximeter Pulse Oximetry (%) 96 Oxygen Delivery Method Room Air Intake Visit Reasons: Abd pain, pt req visit. 30 Mins Intake Note: ESTABLISHED PATIENT for mgmt of abd pain. Pt ROCÍO w/ Echo 2022 and was supposed to have 6 week FUV but did not. Chief Complaint; C/O epigastric pain, bloating, abd distention. Pt also reports occasional lower quadrant pain but does not occur as frequently as epigastric pain. Pt denies any reflux or fecal abn at this time. No additional sx or concerns. Income Tax Return Preparer Required: No Income Tax Return Preparer Services: Income Tax Return Preparer Offered & Declined Accompanied by: Mother Allergies metformin Allergy (Intermediate, Verified 06/07/24 09:45) stomach upset dulaglutide [From Trulicity] Adverse Reaction (Severe, Verified 06/07/24 09:45) blurry vision, abdominal pain insulin glargine [From Toujeo Max U-300 SoloStar] Adverse Reaction (Intermediate, Verified 06/07/24 09:45) Dizziness cats, dogs Allergy (Intermediate, Uncoded 06/07/24 09:45) Agitated many environmental allergies Allergy (Intermediate, Uncoded 06/07/24 09:45) Flushing HPI HPI Abd pain, pt req visit. 30 Mins: Details: LAST VISIT: GERD (gastroesophageal reflux disease) Continue avoiding dietary triggers and late night snacking. Staying upright for minimum 3 hours after meals discussed with patient. Patient will take famotidine twice a day. Chronic idiopathic constipation Patient was encouraged to take MiraLax every morning and Dulcolax tablets at bedtime. Patient was also encouraged to increase fluid intake and activity to promote better bowel acuity. Abdominal pain Patient reports abdominal pain and distension. Patient will be sent for CT scan with IV and oral contrast. Patient did not go for abdominal ultrasound that was ordered last visit. We can cancel that and have her go for CT scan instead. Postprandial abdominal bloating Postprandial abdominal bloating. Patient was encouraged to avoid dietary triggers. Discussed with patient will FODMAP diet. Patient will go over the list again and try to follow it. Simethicone ordered for patient. I will see her in 6 weeks sooner on as needed basis. We will discuss patient going for colonoscopy and upper endoscopy. Patient is agreeable to this plan and verbalizes understanding of instructions. She was given the opportunity to ask questions and all questions answered. ? TODAY'S VISIT Patient is here today for requested visit. Patient was last seen back in June of 2022. Patient was supposed to follow-up after going for CT scan of abdomen and pelvis for her ongoing abdominal pain and has never went for testing. Patient currently changed her diabetic medication. No longer is taking Trulicity. Patient is currently on glipizide, metformin and Mounjaro. Patient started Mounjaro about couple weeks ago. Her blood sugars have not been controlled well. Patient admits to be over eating. Patient eats lot of carbs like rice and bread. Reports epigastric pain and severe bloating. She reports that she moves her bowels, however not always feels like she empties them completely. Patient denies any nausea or vomiting. Reports epigastric pain with dyspepsia without dysphagia or odynophagia. Patient does not want to take any PPIs patient denies melena, hematochezia, unintentional weight loss or ribbon like stools. Patient had normal colonoscopy and was recommended 10 year screening. 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 Obesity due to excess calories DM2 (diabetes mellitus, type 2) Urge urinary incontinence Lumbar pain Mild recurrent major depression Obesity (BMI 30-39.9) Hot flashes Pterygium of both eyes Depression with anxiety Daytime sleepiness GERD (gastroesophageal reflux disease) Polyarthralgia Left hand pain Obese Pure hypercholesterolemia Diabetes mellitus Surgical History (Updated 06/07/24 @ 09:51 by Tony Luciano, [facility]) History of biopsy Cataract History of ectopic Family History Father Diabetes Hypertension Mother Diabetes Hypertension Family/Other FH: mental illness Brother No problems noted. Sister No problems noted. Social History Housing: Apartment Alcohol intake: current Alcohol intake frequency: holidays/special occasions only Alcohol type: wine Patient Tobacco Use Status: Never used Tobacco e-Cigarette/Vaping Use: Never Used Second Hand Smoke Exposure: No service: No Current occupational status: unemployed Cognitive needs: No Hearing needs: No Vision needs: No Female Reproductive History Menstrual Age of Menarche: 10 Review of Systems Const Denies weight gain and Denies weight loss ENT Reports no additional complaints, Denies dysphagia and Denies odynophagia Card Reports no additional complaints Resp Reports no additional complaints GI Reports abdominal pain (Epigastric), Denies belching, Denies melena, Reports bloating, Denies change in bowel habits, Reports constipation, Reports GI cramping, Denies dysphagia, Denies excessive flatus, Denies dyspepsia, Denies heartburn, Denies diarrhea, Denies loose stools, Denies nausea, Denies odynophagia and Denies vomiting Reports no additional complaints Musc Reports no additional complaints Neuro Reports no additional complaints Psych Reports no additional complaints Endo Reports no additional complaints Physical Exam Const General: healthy appearing and no acute distress Nutritional Appearance: well nourished Orientation/consciousness: patient oriented x3 Resp Effort & Inspection: normal respiratory effort, able to speak in complete sentences, no tracheal deviation and symmetric chest movement Auscultation: clear to auscultation bilaterally Cardio Rate: regular rate GI Inspection: Yes normal to inspection and No distended Palpation (GI): Soft to palpation, not firm, nontender and No hepatosplenomegaly present Auscultation: normal bowel sounds General: Yes no CVA tenderness Back/Spine/Pelvis Back: no CVA tenderness Skin General skin exam: elasticity normal, turgor normal and dry skin Neuro General: patient oriented x3 Psych Appearance: grossly normal Mental Status: mental status grossly normal Assessment & Plan Assessment & Plan (1) Abdominal pain: Code(s): R10.9 - Unspecified abdominal pain Category: Medical Qualifiers: Abdominal location: upper abdomen, unspecified Qualified Code(s): R10.10 - Upper abdominal pain, unspecified (2) Abdominal bloating: Code(s): R14.0 - Abdominal distension (gaseous) Category: Medical (3) Chronic idiopathic constipation: Code(s): K59.04 - Chronic idiopathic constipation Category: Medical (4) GERD (gastroesophageal reflux disease): Code(s): K21.9 - Gastro-esophageal reflux disease without esophagitis Category: Medical Qualifiers: Esophagitis presence: esophagitis presence not specified Qualified Code(s): K21.9 - Gastro-esophageal reflux disease without esophagitis (5) Postprandial abdominal bloating: Code(s): R14.0 - Abdominal distension (gaseous) Plan Patient will try avoiding dietary triggers. Avoid eating too many carbs. Low FODMAP diet discussed with patient. List of food recommended as well as list of food to avoid given to patient. Patient will go for CT scan. Long discussion with patient about following diet recommendation also from her economic adviser. Increase fluid intake and activity to promote better bowel motility, continue Dulcolax daily. Patient will follow-up in 3 months, sooner on as needed basis. She is agreeable to this plan and verbalizes understanding of instructions. She was given the opportunity to ask questions and all questions answered. Thank you for allowing me to participate in her care Orders: Orders Blood Urea Nitrogen Today R10.11 - Right upper quadrant pain Creatinine Today R10.11 - Right upper quadrant pain CT abdomen pelvis w IV con Today R10.9 - Unspecified abdominal pain Medications: New bisacodyl 10 mg (2 x 5 mg) PO BEDTIME 180 tabs 0RF Refilled simethicone (Gas Relief (simethicone)) [place] davide tableta despues de cada comida hasta 4 veces al faraz. 125 mg PO TID-QID PRN 120 caps 2RF abdominal distention Coding Level of Care Code Est Pt Level 4 (19292) Complex EM visit Add On G2211 Diagnoses Pain of upper abdomen R10.10 Abdominal location: upper abdomen, unspecified Abdominal bloating R14.0 Chronic idiopathic constipation K59.04 Gastroesophageal reflux disease, unspecified whether esophagitis present K21.9 Esophagitis presence: esophagitis presence not specified Postprandial abdominal bloating R14.0 Time Spent (min) 40 Comment 25 minutes spent with patient and additional 15 minutes spent reviewing her records
--- OUTSIDE RECORDS SUMMARY | 2024-06-07 09:54 | XMS_ITS | Clinical Summary ---
Author Organization [facility] Address [address] [place] [address] Care Team Providers Care Developing Machine Tender Name Role Phone Unavailable Primary Care Provider [...] Procedure Name Priority Date/Time Associated Diagnosis Comments [facility] SCREENING DIGITAL Routine 03/06/2023 2:23 PM EST Encounter for screening mammogram for malignant neoplasm of breast PAP SMEAR Routine 05/04/2017 from Last 3 Months or Most Recently Relevant to Health Maintenance Results * VANESSA SCREENING DIGITAL (03/06/2023 2:23 PM EST) Anatomical Region Laterality Modality Mammography 03/06/2023 1:27 PM EST Narrative 03/06/2023 2:23 PM EST [facility] Diagnostic Imaging Department [address] [place] [address] [id number] Patient: ??LIN MYERS ?/Age/Sex: 1970 - Unit#: ??[id number] ? Location/Status: ??SPDIMAM/REG CLI ? Mnemonic/Ordering Site: ??DIGSC/SPMAM Ordering Physician: ??QUINONEZJAYLIN FALLON GALPatt Vanessa Screening Digital - 03/06/23 - 1344 Report Status:Signed EXAM: [facility] Screening Digital EXAM DATE AND TIME: 03/06/2023 1:45 PM HISTORY: ??Annual screening COMPARISON: ??Multiple exams dating back to 2007 TECHNIQUE: Bilateral digital breast tomosynthesis was performed in the CC and MLO projections. Computer aided detection with Id[employer] 3D 3.1 was employed. TISSUE DENSITY: b. [...] Procedure Note Natali Bailon MD - 10/02/2023 [facility] Diagnostic Imaging Department [address] [place] [address] [id number] Patient: LIN MYERS/Age/Sex: 1970 - 52 - F Unit#: [id number] Location/Status: SPDIMAM/REG CLI Mnemonic/Ordering Site: [facility] Ordering Physician: JAYLIN QUINONEZ CNM Vanessa Screening Digital - 03/06/23 - 1344 Report Status:Signed EXAM: [facility] Screening Digital EXAM DATE AND TIME: 03/06/2023 1:45 PM HISTORY: Annual screening COMPARISON: Multiple exams dating back to 2007 TECHNIQUE: Bilateral digital breast tomosynthesis was performed in the CCand MLO projections. Computer aided detection with Idiro 3D 3.1was employed. TISSUE DENSITY: b. There [...] RESULTING AGENCY - 05/08/2017 10:39 AM EDT [id number] RESULTS OF GEN-PROBE APTIMA COMBO 2 ASSAY CHLAMYDIA: ?NEGATIVE N. GONORRHOEAE: ? NEGATIVE DM OJEDA M.D., PATHOLOGIST (CASE ELECTRONICALLY SIGNED 05 08 2017) CLINICAL INFORMATION: Z12.4, HORMONES. Z01.419 ENCOUNTER FOR GYNECOLOGICAL EXAMINATION (GENERAL) (ROUTINE) WITHOUT ABNORMAL FINDINGS SOURCE: THINPREP PAP FOR CT/GC GROSS DESCRIPTION: THINPREP VIAL RECEIVED. PHYSICIANS ELAINE WATSON/#[phone]/ Elaine Watson [facility] LAB CYTOLOGY ORDERABLES Final Result HISTORICAL TESTING LAB RESULTING AGENCY from Last 3 Months or Most Recently Relevant to Health Maintenance
[2024-06-07 10:19] VITALS: BP 112/58; PULSE 60; O2SAT 96; BMI 29.8
== END 2024-06-07 10:16 | disposition home or self-care (01) ==
LOC: HO.HGI 09:40
PROVIDERS: PCP Internal Medicine; Visit Provider Nurse Practitioner Family
DX: R10.10 Upper abdominal pain, unspecified (principal); R14.0 Abdominal distension (gaseous); K59.04 Chronic idiopathic constipation; K21.9 Gastro-esophageal reflux disease without esophagitis
CPT/HCPCS: 99214; G2211

== ENCOUNTER 2024-06-12 14:13 | Outpatient (AMB) | payer OTHER, SELFPAY ==
--- NOTE | 2024-06-12 14:40 | A.OFFVIS_ITS ---
Intake Visit Reasons: Colpo result Sales And Marketing Administrator Required: Yes Sales And Marketing Administrator Language: Employment Advisor Services: Sales And Marketing Administrator Present (in person) Sales And Marketing Administrator Name: Ginger GILLESPIE Information Interpreted: non-clinical & clinical Accompanied by: Mother Allergies metformin Allergy (Intermediate, Verified 06/12/24 14:44) stomach upset dulaglutide [From Trulicity] Adverse Reaction (Severe, Verified 06/12/24 14:44) blurry vision, abdominal pain insulin glargine [From Toujeo Max U-300 SoloStar] Adverse Reaction (Intermediate, Verified 06/12/24 14:44) Dizziness cats, dogs Allergy (Intermediate, Uncoded 06/12/24 14:44) Agitated many environmental allergies Allergy (Intermediate, Uncoded 06/12/24 14:44) Flushing HPI Comments Details: Presenting post colpo for follow-up. The patient is doing well with no complaints. The pathology showed the following: A. Endocervix, curettage: Inflamed endocervical and squamous mucosa with reac tive changes. B. Cervix, 1 o'clock, biopsy: - Squamous mucosa within normal limits. - No endocervical epithelium identified. C. Cervix, 4 o'clock, biopsy: - Mildly inflamed squamous mucosa with reactive changes; otherwise within normal limits. - No endocervical epithelium identified. D. Cervix, 11 o'clock, biopsy: - Squamous mucosa within normal limits. - No endocervical epithelium identified. COMMENT: The findings are concordant with the patient's recent Pap/cytology specimen ([id number]; ASCUS with negative HPV) - slide reviewed. [facility] Medical History (Updated 06/12/24 @ 14:43 by Vince Dejesus MD) ASCUS with positive high risk HPV cervical Chronic idiopathic constipation Epistaxis Overflow incontinence of urine assisted (current) use of insulin Obesity due to excess calories DM2 (diabetes mellitus, type 2) Urge urinary incontinence Lumbar pain Mild recurrent major depression Obesity (BMI 30-39.9) Hot flashes Pterygium of both eyes Depression with anxiety Daytime sleepiness GERD (gastroesophageal reflux disease) Polyarthralgia Left hand pain Obese Pure hypercholesterolemia Diabetes mellitus Surgical History History of biopsy Cataract History of ectopic Family History Father Diabetes Hypertension Mother Diabetes Hypertension Family/Other FH: mental illness Brother No problems noted. Sister No problems noted. Social History Housing: Apartment Alcohol intake: current Alcohol intake frequency: holidays/special occasions only Alcohol type: wine Patient Tobacco Use Status: Never used Tobacco e-Cigarette/Vaping Use: Never Used Second Hand Smoke Exposure: No service: No Current occupational status: unemployed Cognitive needs: No Hearing needs: No Vision needs: No Female Reproductive History Menstrual Age of Menarche: 10 Review of Systems Const All systems reviewed & are unremarkable except as noted in HPI and below Reports as per HPI and Reports no additional complaints GI Reports no additional complaints Reports no additional complaints Assessment & Plan Assessment & Plan (1) ASCUS of cervix with negative high risk HPV: Code(s): R87.610 - Atypical squamous cells of undetermined significance on cytologic smear of cervix (ASC-US) Category: Medical Plan: Discussed with the patient the pathology results of the colposcopy biopsies & endocervical curettage . Discussed with the patient the sensitivity specifici ty, positive and negative predictive value in detecting cervical cancer in addition discussed the regression, persistence and progression rates. Recommended co-testing in 12 months, if cytology and or HPV are abnormal will proceed was colposcopy biopsy and endocervical curettage. Instructions given to the patient to schedule a co test appointment in 1 year. All questions answered the patient verbalized understanding. Coding Level of Care Code Est Pt Level 3 (62630) Diagnoses ASCUS of cervix with negative high risk HPV R87.610
--- OUTSIDE RECORDS SUMMARY | 2024-06-12 15:27 | XMS_ITS | Clinical Summary ---
[facility] Address [address] [place] [address] Care Team Providers Care Sorter/Assay Tech Name Role Phone Unavailable Primary Care Provider [...] Name Priority Date/Time Associated Diagnosis Comments [facility] SCREENING DIGITAL Routine 03/06/2023 2:23 PM EST Encounter for screening mammogram for malignant neoplasm of breast PAP SMEAR Routine 05/04/2017 from Last 3 Months or Most Recently Relevant to Health Maintenance Results * VANESSA SCREENING DIGITAL (03/06/2023 2:23 PM EST) Anatomical Region Laterality Modality Mammography 03/06/2023 1:27 PM EST Narrative 03/06/2023 2:23 PM EST [facility] Diagnostic Imaging Department [address] [place] [address] [phone] Patient: ??LIN MYERS ?/Age/Sex: 1970 - Unit#: ??[id number] ? Location/Status: ??SPDIMAM/REG CLI ? Mnemonic/Ordering Site: ??DIGSC/SPMAM Ordering Physician: ??QUINONEZJAYLIN FALLON GALPatt Vanessa Screening Digital - 03/06/23 - 1344 Report Status:Signed EXAM: [facility] Screening Digital EXAM DATE AND TIME: 03/06/2023 1:45 PM HISTORY: ??Annual screening COMPARISON: ??Multiple exams dating back to 2007 TECHNIQUE: Bilateral digital breast tomosynthesis was performed in the CC and MLO projections. Computer aided detection with [employer] 3D 3.1 was employed. TISSUE DENSITY: b. [...] Note Natali Bailon MD - 10/02/2023 [facility] Diagnostic Imaging Department [address] [place] [address] [phone] Patient: LIN MYERS/Age/Sex: 1970 - 52 - F Unit#: [id number] Location/Status: SPDIMAM/REG CLI Mnemonic/Ordering Site: [facility] Ordering Physician: JAYLIN QUINONEZ CNM Vanessa Screening Digital - 03/06/23 - 1344 Report Status:Signed EXAM: [facility] Screening Digital EXAM DATE AND TIME: 03/06/2023 1:45 PM HISTORY: Annual screening COMPARISON: Multiple exams dating back to 2007 TECHNIQUE: Bilateral digital breast tomosynthesis was performed in the CCand MLO projections. Computer aided detection with [employer] 3D 3.1was employed. TISSUE DENSITY: b. There [...] RESULTING AGENCY - 05/08/2017 10:39 AM EDT [id number] RESULTS OF GEN-PROBE APTIMA COMBO 2 ASSAY CHLAMYDIA: ?NEGATIVE N. GONORRHOEAE: ? NEGATIVE DM OJEDA M.D., PATHOLOGIST (CASE ELECTRONICALLY SIGNED 05 08 2017) CLINICAL INFORMATION: Z12.4, HORMONES. Z01.419 ENCOUNTER FOR GYNECOLOGICAL EXAMINATION (GENERAL) (ROUTINE) WITHOUT ABNORMAL FINDINGS SOURCE: THINPREP PAP FOR CT/GC GROSS DESCRIPTION: THINPREP VIAL RECEIVED. PHYSICIANS ELAINE WATSON/#[phone]/ Elaine Watson [facility] LAB CYTOLOGY ORDERABLES Final Result HISTORICAL TESTING LAB RESULTING AGENCY from Last 3 Months or Most Recently Relevant to Health Maintenance
== END 2024-06-12 15:44 | disposition home or self-care (01) ==
LOC: HO.HWS 14:13
PROVIDERS: PCP Internal Medicine; Visit Provider Obstetrics & Gynecology
DX: R87.610 Atypical squamous cells of undetermined significance on cytologic smear of cervix (ASC-US) (principal)
CPT/HCPCS: 99213

== ENCOUNTER → 2024-06-12 14:13 | Outpatient (BNVA) | payer OTHER, SELFPAY | PROVIDERS: PCP Internal Medicine; Visit Provider Obstetrics & Gynecology | DX: R87.610 Atypical squamous cells of undetermined significance on cytologic smear of cervix (ASC-US) (principal) | CPT/HCPCS: 99212 ==

== ENCOUNTER 2024-07-15 08:14 | Outpatient (AMB) | payer OTHER, SELFPAY ==
[2024-07-15 08:18] VITALS: BP 116/60; PULSE 80; O2SAT 97; BMI 30.6
--- NOTE | 2024-07-15 08:18 | A.OFFVIS_ITS ---
Vital Signs 07/15/24 08:18 Height 5 ft 2 in Weight 167 lb 5.294 oz BMI 30.6 BP 116/60 Blood Pressure Location Lt brachial Position Sitting Pulse 80 Pulse Source Pulse Oximeter Pulse Oximetry (%) 97 Oxygen Delivery Method Room Air Intake Visit Reasons: DM Intake Note: Patient present today for Type 2 Diabetes Mellitus Last Diabetic eye exam: 01/2024 Last Podiatry Visit: Doesn't have one Random Glucose: 359 mg/dl HgA1C: 12.0% 05/24/24 Wash Barrel Leader Required: Yes Wash Barrel Leader Language: Concrete Carpenter Services: Wash Barrel Leader Present Information Interpreted: clinical only (Rosaura [id number]) Accompanied by: Self / Same As Patient Allergies metformin Allergy (Intermediate, Verified 07/15/24 08:24) stomach upset dulaglutide [From Trulicity] Adverse Reaction (Severe, Verified 07/15/24 08:24) blurry vision, abdominal pain insulin glargine [From Toujeo Max U-300 SoloStar] Adverse Reaction (Intermediate, Verified 07/15/24 08:24) Dizziness cats, dogs Allergy (Intermediate, Uncoded 07/15/24 08:24) Agitated many environmental allergies Allergy (Intermediate, Uncoded 07/15/24 08:24) Flushing Medication List - Last Reconciled 07/15/24 by Camille Malone PA-C barium sulfate 2%(w/v) (Readi-Cat 2) Drink 1st bottle of 450 mL 2 hours before appointment and the 2nd bottle 1 hour before the appointment. bisacodyl 10 mg (2 x 5 mg) PO BEDTIME blood-glucose meter (OneTouch Ultra2 Meter) As directed cetirizine 10 mg PO DAILY 30 days epinephrine IM glipizide 10 mg PO BID ketotifen fumarate 0.025%(0.035%) 0 drps ophthalmic (eye) lancets (Comfort EZ Lancets) As directed [One touch test strips As directed] simethicone (Gas Relief (simethicone)) 125 mg PO TID-QID PRN terazosin 2 mg (2 x 1 mg) PO BEDTIME 90 days valacyclovir 500 mg PO BID [vaniqua 11.5 % cram As directed] HPI HPI DM: Details: Patient is a 53-year-old female with a significant past medical history of uncontrolled type 2 diabetes, obesity, GERD, hyperlipidemia presenting today for consultation regarding her diabetes. phone abrasive mixer helper Gilma is here today to help with any translation Endo-she was diagnosed with diabetes in 2013. She has been on insulin in the past but refuses to take this anymore. She has been off of this for a couple years. Her current A1c is 12. She is currently on Mounjaro 5 mg and glipizide 10 mg twice a day. CGM-I did give her a Vonnie 3 at our last visit so she may monitor her blood sugars closely at home and she states that it fell off -she states that this has been stressful to her because if she eats anything it elevates. Still is adamant in refusing insulin. Last night she had fried chicken, beans and rice. She does drink water and diet sodas. Tolerated humalog in the past and tresiba but refuses to take this. She says that she will not do daily insulin injections. In the past she did so many that she would end up with little abscesses/cyst. That she does not like it and will not do this. In the past she has tried Trulicity but it caused abdominal discomfort, metformin caused GI upset, Toujeo caused dizziness, actos causes GI upset. Jardiance was causing frequent yeast infections. CV: Blood pressure today is 112/58. Not on any antihypertensives. Not on any statin. Last cholesterol was elevated. Declines treatment at this time [facility] Medical History (Updated 06/12/24 @ 14:43 by Vince Dejesus MD) ASCUS with positive high risk HPV cervical Chronic idiopathic constipation Epistaxis Overflow incontinence of urine custodial (current) use of insulin Obesity due to excess calories DM2 (diabetes mellitus, type 2) Urge urinary incontinence Lumbar pain Mild recurrent major depression Obesity (BMI 30-39.9) Hot flashes Pterygium of both eyes Depression with anxiety Daytime sleepiness GERD (gastroesophageal reflux disease) Polyarthralgia Left hand pain Obese Pure hypercholesterolemia Diabetes mellitus Surgical History History of biopsy Cataract History of ectopic Family History Father Diabetes Hypertension Mother Diabetes Hypertension Family/Other FH: mental illness Brother No problems noted. Sister No problems noted. Social History Housing: Apartment Alcohol intake: current Alcohol intake frequency: holidays/special occasions only Alcohol type: wine Patient Tobacco Use Status: Never used Tobacco e-Cigarette/Vaping Use: Never Used Second Hand Smoke Exposure: No service: No Current occupational status: unemployed Cognitive needs: No Hearing needs: No Vision needs: No Female Reproductive History Menstrual Age of Menarche: 10 Physical Exam Const Orientation/consciousness: patient oriented x3 HEENT Ears: hearing grossly normal bilaterally Neck Thyroid: Thyroid normal Lymphatic: no lymphadenopathy noted Resp Auscultation: clear to auscultation bilaterally Cardio Rate: regular rate Rhythm: regular rhythm Heart sounds: S1 normal heart sound present and S2 normal heart sound present Skin General skin exam: no rashes or lesions noted Neuro General: patient oriented x3, gait normal and no focal motor deficits Results Reviewed Results Reviewed: Laboratory Tests 05/09/24 05/24/24 06/07/24 10:06 08:57 08:36 BUN Creatinine Estimated GFR Glucose (Clinic) 347 H Hgb A1c (Clinic) 12.0 H Triglycerides 369 H Cholesterol 262 H LDL Cholesterol, Calc 152 H HDL Cholesterol 37 L 06/07/24 10:45 BUN 13 Creatinine 0.78 Estimated GFR > 60 Glucose (Clinic) Hgb A1c (Clinic) Triglycerides Cholesterol LDL Cholesterol, Calc HDL Cholesterol Assessment & Plan Assessment & Plan (1) Uncontrolled diabetes mellitus with hyperglycemia, without long-term current use of insulin: Code(s): E11.65 - Type 2 diabetes mellitus with hyperglycemia Category: Medical Plan: increase mounjaro to 7.5 mg weekly continue glipizide will add Actos. She states that she can not recall if she was sensitive to this medication or not. We did review what she previous complained of. (2) Non-compliance with treatment: Code(s): Z91.199 - Patient's noncompliance with other medical treatment and regimen due to unspecified reason Category: Medical Plan: encourage insulin to reduce glucose but declines declines statin. Understands that there is a risk of heart attack, stroke, early , complications etc.. (3) Pure hypercholesterolemia: Code(s): E78.00 - Pure hypercholesterolemia, unspecified Category: Medical Plan: discussed starting statin but refuses Orders: Orders Hemoglobin A1c Today E11.65 - Type 2 diabetes mellitus with hyperglycemia, R73.01 - Impaired fasting glucose, Z91.199 - Patient's noncompliance with other medical treatment and regimen due to unspecified reason Comprehensive Met. Panel Today E11.65 - Type 2 diabetes mellitus with hyperglycemia, Z91.199 - Patient's noncompliance with other medical treatment and regimen due to unspecified reason Medications: New tirzepatide (Mounjaro) 7.5 mg (0.5 mL) subcut QWEEK 2 mL 4RF pioglitazone (Actos) 15 mg PO DAILY 90 tabs 0RF Coding Level of Care Code Est Pt Level 4 (63249) Complex EM visit Add On G2211 Diagnoses Uncontrolled diabetes mellitus with hyperglycemia, without long-term current use of insulin E11.65 Non-compliance with treatment Z91.199 Pure hypercholesterolemia E78.00
--- OUTSIDE RECORDS SUMMARY | 2024-07-15 08:21 | XMS_ITS | Clinical Summary ---
[facility] Address [address] [place] [address] Care Team Providers Care Jailer Chief Name Role Phone Unavailable Primary Care Provider [...] Procedure Name Priority Date/Time Associated Diagnosis Comments [facility] SCREENING DIGITAL Routine 03/06/2023 2:23 PM EST Encounter for screening mammogram for malignant neoplasm of breast PAP SMEAR Routine 05/04/2017 from Last 3 Months or Most Recently Relevant to Health Maintenance Results * VANESSA SCREENING DIGITAL (03/06/2023 2:23 PM EST) Anatomical Region Laterality Modality Mammography 03/06/2023 1:27 PM EST Narrative 03/06/2023 2:23 PM EST [facility] Diagnostic Imaging Department [address] [place] [address] [phone] Patient: ??LIN MYERS ?/Age/Sex: 1970 - Unit#: ??[id number] ? Location/Status: ??SPDIMAM/REG CLI ? Mnemonic/Ordering Site: ??DIGSC/SPMAM Ordering Physician: ??QUINONEZJAYLIN FALLON GALPatt Vanessa Screening Digital - 03/06/23 - 1344 Report Status:Signed EXAM: [facility] Screening Digital EXAM DATE AND TIME: 03/06/2023 1:45 PM HISTORY: ??Annual screening COMPARISON: ??Multiple exams dating back to 2007 TECHNIQUE: Bilateral digital breast tomosynthesis was performed in the CC and MLO projections. Computer aided detection with [employer] 3D 3.1 was employed. TISSUE DENSITY: b. [...] Procedure Note Natali Bailon MD - 10/02/2023 [facility] Diagnostic Imaging Department [address] [place] [address] [phone] Patient: LIN MYERS/Age/Sex: 1970 - 52 - F Unit#: [id number] Location/Status: SPDIMAM/REG CLI Mnemonic/Ordering Site: [facility] Ordering Physician: JAYLIN QUINONEZ CNM Vanessa Screening Digital - 03/06/23 - 1344 Report Status:Signed EXAM: [facility] Screening Digital EXAM DATE AND TIME: 03/06/2023 1:45 PM HISTORY: Annual screening COMPARISON: Multiple exams dating back to 2007 TECHNIQUE: Bilateral digital breast tomosynthesis was performed in the CCand MLO projections. Computer aided detection with [employer] 3D 3.1was employed. TISSUE DENSITY: b. There [...] RESULTING AGENCY - 05/08/2017 10:39 AM EDT [id number] RESULTS OF GEN-PROBE APTIMA COMBO 2 ASSAY CHLAMYDIA: ?NEGATIVE N. GONORRHOEAE: ? NEGATIVE DM OJEDA M.D., PATHOLOGIST (CASE ELECTRONICALLY SIGNED 05 08 2017) CLINICAL INFORMATION: Z12.4, HORMONES. Z01.419 ENCOUNTER FOR GYNECOLOGICAL EXAMINATION (GENERAL) (ROUTINE) WITHOUT ABNORMAL FINDINGS SOURCE: THINPREP PAP FOR CT/GC GROSS DESCRIPTION: THINPREP VIAL RECEIVED. PHYSICIANS ELAINE WATSON/#[phone]/ Elaine Watson [facility] LAB CYTOLOGY ORDERABLES Final Result HISTORICAL TESTING LAB RESULTING AGENCY from Last 3 Months or Most Recently Relevant to Health Maintenance
[2024-07-15 08:33] LABS: Glucose, Whole Blood 359 mg/dL (60-115)
== END 2024-07-15 08:48 | disposition home or self-care (01) ==
LOC: HO.ENCR 08:15
PROVIDERS: PCP Internal Medicine; Visit Provider Physician Assistant
DX: E11.65 Type 2 diabetes mellitus with hyperglycemia (principal); Z91.199 Patient's noncompliance with other medical treatment and regimen due to unspecified reason; E78.00 Pure hypercholesterolemia, unspecified

== ENCOUNTER → 2024-07-15 08:14 | Outpatient (BNVA) | payer OTHER, SELFPAY | PROVIDERS: PCP Internal Medicine; Visit Provider Physician Assistant | DX: E11.65 Type 2 diabetes mellitus with hyperglycemia (principal); E78.00 Pure hypercholesterolemia, unspecified; E66.9 Obesity, unspecified; K21.9 Gastro-esophageal reflux disease without esophagitis; E78.5 Hyperlipidemia, unspecified; Z68.30 Body mass index [BMI] 30.0-30.9, adult; Z91.199 Patient's noncompliance with other medical treatment and regimen due to unspecified reason | CPT/HCPCS: 82947; 99212 ==

== ENCOUNTER 2024-07-16 08:17 | Outpatient (REF) | payer OTHER, SELFPAY ==
--- NOTE | ~2024-07-16 | US_ITS ---
CLINICAL HISTORY: R10.9 - Unspecified abdominal pain US abdomen complete. COMPARISON: None Technique: Real time sonographic imaging, including color-flow imaging, was performed by the skein inspector. Multiple bilingual call center representative static images were saved for review. FINDINGS: The visualized aorta and inferior vena cava are normal caliber. The visualized portions of the pancreas appear normal. The liver has diffusely increased echogenicity. The main portal vein is antegrade. Liver, right lobe size: 20.5 cm, enlarged The gallbladder is 20. No cholelithiasis or sludge identified. There is a negative sonographic Best's sign. Gallbladder wall: 2 mm, normal. Common bile duct: 3 mm, normal. Right kidney: Cortical medullary differentiation is maintained. Normal color flow by Doppler. No calculus or focal parenchymal abnormality identified. No hydronephrosis. Right kidney length: 13.1 cm Left kidney: Cortical medullary differentiation is maintained. Normal color flow by Doppler. No calculus or focal parenchymal abnormality identified. No hydronephrosis. Left kidney length: 12.2 cm The spleen has normal echogenicity. Splenic length: 9.4 cm, normal. No free intraperitoneal fluid identified. IMPRESSION: 1. No acute findings. No evidence of cholecystitis or renal obstruction. 2. Hepatomegaly with hepatic steatosis. This document has been electronically signed by: Yoandy Mohan MD on 07/16/2024 14:51:32
--- OUTSIDE RECORDS SUMMARY | 2024-07-16 08:25 | XMS_ITS | Clinical Summary ---
Author Organization [facility] Address [address] [place] [address] Care Team Providers Care Stylist Apprentice Name Role Phone Unavailable Primary Care Provider [...] Procedure Name Priority Date/Time Associated Diagnosis Comments [facility] SCREENING DIGITAL Routine 03/06/2023 2:23 PM EST Encounter for screening mammogram for malignant neoplasm of breast PAP SMEAR Routine 05/04/2017 from Last 3 Months or Most Recently Relevant to Health Maintenance Results * VANESSA SCREENING DIGITAL (03/06/2023 2:23 PM EST) Anatomical Region Laterality Modality Mammography 03/06/2023 1:27 PM EST Narrative 03/06/2023 2:[address] [facility] Diagnostic Imaging Department [address] [place] [address] [id number] Patient: ??LIN MYERS ?/Age/Sex: 1970 - Unit#: ??[id number] ? Location/Status: ??SPDIMAM/REG CLI ? Mnemonic/Ordering Site: ??DIGSC/SPMAM Ordering Physician: ??QUINONEZJAYLIN FALLON GALPatt Vanessa Screening Digital - 03/06/23 - 1344 Report Status:Signed EXAM: [facility] Screening Digital EXAM DATE AND TIME: 03/06/2023 1:45 PM HISTORY: ??Annual screening COMPARISON: ??Multiple exams dating back to 2007 TECHNIQUE: Bilateral digital breast tomosynthesis was performed in the CC and MLO projections. Computer aided detection with [employer] 3D 3.1 was employed. TISSUE DENSITY: b. [...] Note Natali Bailon MD - 10/02/2023 [facility] Diagnostic Imaging Department [address] [place] [address] [phone] Patient: LIN MYRES/Age/Sex: 1970 - 52 - F Unit#: [id number] Location/Status: SPDIMAM/REG CLI Mnemonic/Ordering Site: [facility] Ordering Physician: JAYLIN QUINONEZ CNM Vanessa Screening Digital - 03/06/23 - 1344 Report Status:Signed EXAM: [facility] Screening Digital EXAM DATE AND TIME: 03/06/2023 1:45 PM HISTORY: Annual screening COMPARISON: Multiple exams dating back to 2007 TECHNIQUE: Bilateral digital breast tomosynthesis was performed in the CCand MLO projections. Computer aided detection with [employer] 3D 3.1was employed. TISSUE DENSITY: b. There [...] RESULTING AGENCY - 05/08/2017 10:39 AM EDT [id number] RESULTS OF GEN-PROBE APTIMA COMBO 2 ASSAY CHLAMYDIA: ?NEGATIVE N. GONORRHOEAE: ? NEGATIVE DM OJEDA M.D., PATHOLOGIST (CASE ELECTRONICALLY SIGNED 05 08 2017) CLINICAL INFORMATION: Z12.4, HORMONES. Z01.419 ENCOUNTER FOR GYNECOLOGICAL EXAMINATION (GENERAL) (ROUTINE) WITHOUT ABNORMAL FINDINGS SOURCE: THINPREP PAP FOR CT/GC GROSS DESCRIPTION: THINPREP VIAL RECEIVED. PHYSICIANS ELAINE WATSON/#[phone]/ Elaine Watson [facility] LAB CYTOLOGY ORDERABLES Final Result HISTORICAL TESTING LAB RESULTING AGENCY from Last 3 Months or Most Recently Relevant to Health Maintenance
[2024-07-16 09:58] LABS: Estimated Average Glucose 312 mg/dL; Hemoglobin A1c % 12.5 % (<6.0); Total Hemoglobin (HGBA1C) 3939.3494 umol/L
[2024-07-16 11:03] LABS: Alanine Aminotransferase 31 U/L (0-31); Albumin Level 4.1 g/dL (3.5-5.0); Alkaline Phosphatase 94 U/L (39-117); Anion Gap 12 (12-20); Aspartate Amino Transferase 38 U/L (5-31); Bilirubin Total 0.4 mg/dL (0.0-1.0); Blood Urea Nitrogen 13 mg/dL (9-16); Calcium 9.4 mg/dL (8.4-10.2); Carbon Dioxide 27 mmol/L (22-29); Chloride 102 mmol/L (96-108); Estimated Glomerular Filt Rate > 60; Glucose Random 326 mg/dL (60-115); Potassium 4.4 mmol/L (3.3-5.1); Sodium 137 mmol/L (135-145); Total Protein 7.5 g/dL (6.5-8.0)
== END 2024-07-16 08:18 | disposition home or self-care (01) ==
LOC: HO.US 08:17
PROVIDERS: Absent Provider Physician Assistant; PCP Internal Medicine; Visit Provider Internal Medicine
DX: R10.9 Unspecified abdominal pain (principal); E11.65 Type 2 diabetes mellitus with hyperglycemia; Z91.199 Patient's noncompliance with other medical treatment and regimen due to unspecified reason; K76.0 Fatty (change of) liver, not elsewhere classified; R16.0 Hepatomegaly, not elsewhere classified
CPT/HCPCS: 36415; 76700; 80053; 83036

== ENCOUNTER → 2024-07-16 08:23 | Outpatient (BNV) | payer OTHER, SELFPAY | PROVIDERS: Absent Provider Physician Assistant; PCP Internal Medicine; Visit Provider Radiology Diagnostic Radiology | DX: K76.0 Fatty (change of) liver, not elsewhere classified (principal); R16.0 Hepatomegaly, not elsewhere classified | CPT/HCPCS: 76700 ==

== ENCOUNTER 2024-10-04 08:19 | Outpatient (AMB) | payer OTHER, SELFPAY ==
[2024-10-04 08:21] VITALS: BP 114/70; PULSE 80; O2SAT 99; BMI 30.2
--- NOTE | 2024-10-04 08:21 | A.OFFVIS_ITS ---
Vital Signs 10/04/24 08:21 Height 5 ft 2 in Weight 165 lb 5.547 oz BMI 30.2 BP 114/70 Blood Pressure Location Rt brachial Position Sitting Pulse 80 Pulse Source Pulse Oximeter Pulse Oximetry (%) 99 Oxygen Delivery Method Room Air Intake Visit Reasons: DM Intake Note: Patient present today for Type 2 Diabetes Mellitus Last Diabetic eye exam: 01/2024 Last Podiatry Visit: Doesn't have one Random Glucose: 380 mg/dL HgA1C: 12.5% 07/16/2024 Classified Copy Control Clerk Required: Yes Classified Copy Control Clerk Language: Occitan Accompanied by: Self / Same As Patient Allergies metformin Allergy (Intermediate, Verified 07/15/24 08:24) stomach upset dulaglutide (From Trulicity) Adverse Reaction (Severe, Verified 07/15/24 08:24) blurry vision, abdominal pain insulin glargine (From Toujeo Max U-300 SoloStar) Adverse Reaction (Intermediate, Verified 07/15/24 08:24) Dizziness cats, dogs Allergy (Intermediate, Uncoded 07/15/24 08:24) Agitated many environmental allergies Allergy (Intermediate, Uncoded 07/15/24 08:24) Flushing Medication List - Last Reconciled 10/04/24 by Camille Malone PA-C barium sulfate 2%(w/v) (Readi-Cat 2) Drink 1st bottle of 450 mL 2 hours before appointment and the 2nd bottle 1 hour before the appointment. bisacodyl 10 mg (2 x 5 mg) PO BEDTIME blood-glucose meter (HearMeOutTouch Ultra2 Meter) As directed cetirizine 10 mg PO DAILY 30 days epinephrine IM glipizide 10 mg PO BID ketotifen fumarate 0.025%(0.035%) 0 drps ophthalmic (eye) lancets (Comfort EZ Lancets) As directed [One touch test strips As directed] simethicone (Gas Relief (simethicone)) 125 mg PO TID-QID PRN terazosin 2 mg (2 x 1 mg) PO BEDTIME 90 days valacyclovir 500 mg PO BID [vaniqua 11.5 % cram As directed] HPI HPI DM: Details: Patient is a 54-year-old female with a significant past medical history of uncontrolled type 2 diabetes, obesity, GERD, hyperlipidemia presenting today for consultation regarding her diabetes. phone client business manager Tory is here today to help with any translation Endo-she was diagnosed with diabetes in 2013. She has been on insulin in the past but refuses to take this anymore. She has been off of this for a couple years. Her current A1c is 12.5. She is currently on Mounjaro 7.5 mg and glipizide 10 mg twice a day. CGM-I did give her a Vonnie 3 at our last visit so she may monitor her blood sugars closely at home and she states that it fell off -she states that this has been stressful to her because if she eats anything it elevates. Still is adamant in refusing insulin. Last night she had fried chicken, beans and rice. She does drink water and diet sodas. Tolerated humalog in the past and tresiba but refuses to take this. She says that she will not do daily insulin injections. In the past she did so many that she would end up with little abscesses/cyst. That she does not like it and will not do this. In the past she has tried Trulicity but it caused abdominal discomfort, metformin caused GI upset, Toujeo caused dizziness, actos causes GI upset. Jardiance was causing frequent yeast infections. Recently we tried Actos but has not been taking this as she does not tolerate it. States that it makes her sick CV: Blood pressure today is 114/70. Not on any antihypertensives. Not on any statin. Last cholesterol was elevated. Declines treatment at this time. Again aware of complications associated with uncontrolled hyperlipidemia [facility] Medical History (Updated 08/26/24 @ 10:29 by Kirt Chow MD) Diabetic neuropathy Migraine Peripheral neuropathy Insomnia ASCUS with positive high risk HPV cervical Chronic idiopathic constipation Epistaxis Overflow incontinence of urine intermediate (current) use of insulin Obesity due to excess calories DM2 (diabetes mellitus, type 2) Urge urinary incontinence Lumbar pain Mild recurrent major depression Obesity (BMI 30-39.9) Hot flashes Pterygium of both eyes Depression with anxiety Daytime sleepiness GERD (gastroesophageal reflux disease) Polyarthralgia Left hand pain Obese Pure hypercholesterolemia Diabetes mellitus Surgical History History of biopsy Cataract History of ectopic Family History Father Diabetes Hypertension Mother Diabetes Hypertension Family/Other FH: mental illness Brother No problems noted. Sister No problems noted. Social History Housing: Apartment Alcohol intake: current Alcohol intake frequency: holidays/special occasions only Alcohol type: wine Patient Tobacco Use Status: Never used Tobacco e-Cigarette/Vaping Use: Never Used Second Hand Smoke Exposure: No service: No Current occupational status: unemployed Cognitive needs: No Hearing needs: No Vision needs: No Female Reproductive History Menstrual Age of Menarche: 10 Physical Exam Vital Signs: Oxygen Delivery Method Room Air 10/04/24 08:21 BMI result Body Mass Index 30.2 Const Orientation/consciousness: patient oriented x3 HEENT Ears: hearing grossly normal bilaterally Neck Thyroid: Thyroid normal Lymphatic: no lymphadenopathy noted Resp Auscultation: clear to auscultation bilaterally Cardio Rate: regular rate Rhythm: regular rhythm Heart sounds: S1 normal heart sound present and S2 normal heart sound present Skin General skin exam: no rashes or lesions noted Neuro General: patient oriented x3, gait normal and no focal motor deficits Results Reviewed Results Reviewed: Laboratory Tests 05/09/24 07/16/24 10:05 09:08 Creatinine 0.66 Estimated GFR > 60 Random Glucose 326 H Hemoglobin A1c % 12.5 H Urine Creatinine 10.46 Urine Microalbumin 10.0 Microalb/Creat Ratio 95.6 H Assessment & Plan Assessment & Plan (1) Uncontrolled diabetes mellitus with hyperglycemia, without long-term current use of insulin: Code(s): E11.65 - Type 2 diabetes mellitus with hyperglycemia Category: Medical Plan: Discussed at length again the complications associated with uncontrolled type 2 diabetes including but not limited to stroke, heart attack, early , blindness, amputations, infections, severe kidney disease etc.. She reiterates these complications and tells me ?I know ?. I have increased Mounjaro to 10 mg weekly Continue glipizide 10 mg twice a day She will try metformin again but is somewhat resistant to trying this. She will let me know how she does. (2) Pure hypercholesterolemia: Code(s): E78.00 - Pure hypercholesterolemia, unspecified Category: Medical Plan: Refuses treatment Medications: New tirzepatide (Mounjaro) 10 mg (0.5 mL) subcut QWEEK 2 mL 5RF metformin ER (Glucophage XR) 500 mg PO QPM 90 tabs 0RF Refilled glipizide 10 mg PO BID 180 tabs 3RF Coding Level of Care Code Est Pt Level 4 (83021) Complex EM visit Add On G2211 Diagnoses Uncontrolled diabetes mellitus with hyperglycemia, without long-term current use of insulin E11.65 Pure hypercholesterolemia E78.00
[2024-10-04 08:30] LABS: Glucose, Whole Blood 380 mg/dL (60-115)
--- OUTSIDE RECORDS SUMMARY | 2024-10-04 08:30 | XMS_ITS | Clinical Summary ---
Author Organization [employer] Address [address] [place] [address] Care Team Providers Care Right Of Way Appraiser Name Role Phone Unavailable Primary Care Provider Unavailabl e Encounters Date Type Department Care Team Description 09/09/2024 Telephone [facility] [address] [place] [address] [phone] Gume Ronquillo MD 09/06/2024 Telephone [facility] [address], [place] [phone] Gume Ronquillo MD from Last 3 Months Social History Tobacco Use Types Packs/Day Years Used Date Smoking Tobacco: Never Assessed Comments Unknown Sex and Gender Information Value Date Recorded Sex Assigned at Female 12/13/2021 10:19 AM EDT Legal Sex Female 10:19 AM EDT Gender Identity Female 12/13/2021 10:19 AM EDT Sexual Orientation Don't know 12/13/2021 10 :19 AM EDT Plan of Treatment Health Maintenance Due Date Last Done Comments CT Colonography 1970 Colonoscopy 1970 Colorectal Cancer Screening 1970 Depression Screening 1970 FIT DNA/Cologuard 1970 FIT 1970 FOBT 1970 HIV Screening 1970 SDOH Screening 1970 Sigmoidoscopy 1970 Disability Screening 1968 Alcohol/Substance Use Screening 1980 Tobacco Screening 1980 Hepatitis C Screening 1986 DTaP/Tdap/Td Vaccines (1 - Tdap) 07/19/1987 Hepatitis B Vaccines (1 of 3 - 19+ 3-dose series) 07/19/1987 Pap Smear 1989 Cervical Cancer Screening 1998 HPV/Cotest 1998 Pneumococcal Vaccine: 50+ Ye ars (1 of 1 - PCV) 2018 Zoster Vaccines (1 of 2) 2018 Mammogram 05/30/2019 05/29/2017 COVID-19 Vaccine (1 - 2023-2 5 season) 2023 Influenza Vaccine (#1) 2024 RSV Patients and Pa tients Aged 60 years or older (1 - 1-dose 75+ series) 07/19/2043 HIB Vaccines Aged Out No longer eligi ble based on patient's age to complete this topic HPV Vaccines Aged Out No longer eligi ble based on patient's age to complete this topic Hepatitis A Vaccines Aged Out No long er eligible based on patient's age to complete this topic IPV Vaccines Aged Out No longer eligi ble based on patient's age to complete this topic Meningococcal B Vaccine Aged Out No l onger eligible based on patient's age to complete this topic Meningococcal Vaccine Aged Out No mary sylvia eligible based on patient's age to complete this topic RSV under 20 months Aged Out No longe r eligible based on patient's age to complete this topic Rotavirus Vaccines Aged Out No longer eligible based on patient's age to complete this topic Procedures Procedure Name Priority Date/Time Associated Diagnosis Comments BI MAMMOGRAM SCREENING BILATERAL Routine 05/29/2017 8:08 AM EDT from Last 3 Months or Most Recently Relevant to Health Maintenance Results * DIGITAL BILATERAL SCREEN 1 (05/29/2017 8:08 AM EDT) Anatomical Region Laterality Modality Breast Bilateral Mammography 05/29/2017 8:08 AM EDT Narrative 05/30/2017 4:45 PM EDT Refer to the Notes tab for result details [facility] Procedure: DIGITAL BILATERAL SCREEN 1 Procedure Note Provider, MD Yoly - 05/07/2022 Refer to the Notes tab for result details [facility] Procedure: DIGITAL BILATERAL SCREEN 1 us Davian Name MD YEPEZ BI PROCEDURES Final Result from Last 3 Months or Most Recently Relevant to Health Maintenance [facility]
--- OUTSIDE RECORDS SUMMARY | 2024-10-04 08:30 | XMS_ITS | Clinical Summary ---
[facility] Organization [facility] Address [address] [place] [address] Care Team Providers Care Tetryl Nitrator Operator Name Role Phone Unavailable Primary Care Provider [...] Panel) 01/16/2022 Colorectal Cancer Screening: Colonoscopy 01/16/2022 HIV Screening 01/16/2022 Hepatitis C Screening 01/16/2022 Social Influencers of Health Screening 01/16/2022 Diabetes: Annual Urine Albumin-Creatinine Ratio (uACR) 01/28/2022 Diabetes: Blood Sugar Contro l Test (HGBA1C) 01/28/2022 COVID-19 Vaccine ( - 2023-2 5 season) 2023 Depression Screening 02/14/2024 Influenza Vaccine (#1) 2024 3, 12/16/2011 Breast Cancer Screening 03/06/2025 03/06/2023 [...] Procedure Name Priority Date/Time Associated Diagnosis Comments VANESSA SCREENING DIGITAL Routine 03/06/2023 2:23 PM EST Encounter for screening mammogram for malignant neoplasm of breast PAP SMEAR Routine 05/04/2017 from Last 3 Months or Most Recently Relevant to Health Maintenance Results * VANESSA SCREENING DIGITAL (03/06/2023 2:23 PM EST) Anatomical Region Laterality Modality Mammography 03/06/2023 1:27 PM EST Narrative 03/06/2023 2:23 PM EST [facility] Diagnostic Imaging Department [address] [place], [place] [id number] Patient: LIN MYERS./Age/Sex: 1970 - 52 - F Unit#: [id number] Location/Status: SPDIMAM/REG CLI Mnemonic/Ordering Site: DIGSC/SPMAM Ordering Physician: GODDARD,JAYLIN CNM Vanessa Screening Digital - 03/06/23 - 1344 Report Status:Signed EXAM: [facility] Screening Digital EXAM DATE AND TIME: 03/06/2023 1:45 PM HISTORY: Annual screening COMPARISON: Multiple exams dating back to 2007 TECHNIQUE: Bilateral digital breast tomosynthesis was performed in the CC and MLO projections. Computer aided detection with [employer] 3D 3.1 was employed. TISSUE DENSITY: b. There are scattered areas of fibroglandular density. FINDINGS: Possible developing asymmetry in the upper outer right breast. No associated calcifications or architectural distortion. The left breast is unremarkable. IMPRESSION: Possible developing asymmetry in the upper outer right breast. Recommend diagnostic mammogram of the right breast with spot compression MLO tomographic views. BI-RADS: Category 0: Incomplete - Need Additional Imaging Evaluation Dictating Physician: NATALI BAILON MD Electronically Signed by: NATAIL BAILON MD Dic Date/Time: 03/06/23 1421 Sign date/Time: 03/06/23 1423 Procedure Note Natali Bailon MD - 10/02/2023 [facility] Diagnostic Imaging Department [address] [place] [address] Patient: LIN MYERS D.O.B./Age/Sex: 1970 - 52 - F Unit#: [id number] Location/Status: SPDIMAM/REG CLI Mnemonic/Ordering Site: [facility] Ordering Physician: JAYLIN GODDARD CNM Vanessa Screening Digital - 03/06/23 - [id number] Report Status:Signed EXAM: Vanessa Screening Digital EXAM DATE AND TIME: 03/06/2023 1:45 PM HISTORY: Annual screening COMPARISON: Multiple exams dating back to 2007 TECHNIQUE: [facility] Computer aided detection with [employer] 3D 3.1was employed. TISSUE DENSITY: b. There [...] 1421 Sign date/Time: 03/06/23 1423 us Jaylin Goddard CNM IMG BI PROCEDURES Final Resul t * Pap smear (05/04/2017) 05/04/2017 Narrative HISTORICAL TESTING LAB RESULTING AGENCY - 05/08/2017 10:39 AM EDT [id number] RESULTS OF GEN-PROBE APTIMA COMBO 2 ASSAY CHLAMYDIA: NEGATIVE N. GONORRHOEAE: NEGATIVE DM OJEDA M.D., PATHOLOGIST (CASE ELECTRONICALLY SIGNED 05 08 2017) CLINICAL INFORMATION: Z12.4, HORMONES. Z01.419 ENCOUNTER FOR GYNECOLOGICAL EXAMINATION (GENERAL) (ROUTINE) WITHOUT ABNORMAL FINDINGS SOURCE: THINPREP PAP FOR CT/GC GROSS DESCRIPTION: THINPREP VIAL RECEIVED. ELAINE PAYNE/#[phone]/ Elaine Watson CNM LAB CYTOLOGY ORDERABLES Final Result HISTORICAL TESTING LAB RESULTING AGENCY from Last 3 Months or Most Recently Relevant to Health Maintenance
== END 2024-10-04 08:39 | disposition home or self-care (01) ==
LOC: HO.ENCR 08:20
PROVIDERS: PCP Internal Medicine; Visit Provider Physician Assistant
DX: E11.65 Type 2 diabetes mellitus with hyperglycemia (principal); E78.00 Pure hypercholesterolemia, unspecified

== ENCOUNTER → 2024-10-04 08:19 | Outpatient (BNVA) | payer OTHER, SELFPAY | PROVIDERS: PCP Internal Medicine; Visit Provider Physician Assistant | DX: E11.65 Type 2 diabetes mellitus with hyperglycemia (principal); K21.9 Gastro-esophageal reflux disease without esophagitis; E78.00 Pure hypercholesterolemia, unspecified; E66.9 Obesity, unspecified; Z68.30 Body mass index [BMI] 30.0-30.9, adult | CPT/HCPCS: 82947; 99212 ==

== ENCOUNTER 2024-11-04 08:28 | Outpatient (AMB) | payer OTHER, SELFPAY ==
--- NOTE | 2024-11-04 08:30 | A.OFFVIS_ITS ---
Vital Signs 11/04/24 08:36 Height 5 ft 2 in Weight 165 lb 9.074 oz BMI 30.3 BP 112/60 Blood Pressure Location Rt brachial Position Sitting Pulse 79 Pulse Source Pulse Oximeter Pulse Oximetry (%) 97 Oxygen Delivery Method Room Air Intake Visit Reasons: DM Intake Note: Patient present today for Type 2 Diabetes Mellitus Last Diabetic eye exam: 01/2024 Last Podiatry Visit: Doesn't have one Random Glucose: 307 mg/dL HgA1C: 11.4% 11/04/24 Pharmacy Care Coordinator Required: Yes Pharmacy Care Coordinator Language: Speech Language Pathologist Assistant Services: Pharmacy Care Coordinator Present Pharmacy Care Coordinator Name: [facility] – [place] Endo Zulieca Information Interpreted: non-clinical & clinical Accompanied by: Self / Same As Patient Allergies metformin Allergy (Intermediate, Verified 11/04/24 08:37) stomach upset dulaglutide (From Trulicity) Adverse Reaction (Severe, Verified 11/04/24 08:37) blurry vision, abdominal pain insulin glargine (From Toujeo Max U-300 SoloStar) Adverse Reaction (Intermediate, Verified 11/04/24 08:37) Dizziness cats, dogs Allergy (Intermediate, Uncoded 11/04/24 08:37) Agitated many environmental allergies Allergy (Intermediate, Uncoded 11/04/24 08:37) Flushing Medication List - Last Reconciled 11/04/24 by Jack Stevens MD barium sulfate 2%(w/v) (Readi-Cat 2) Drink 1st bottle of 450 mL 2 hours before appointment and the 2nd bottle 1 hour before the appointment. bisacodyl 10 mg (2 x 5 mg) PO BEDTIME blood-glucose meter (OneTouch Ultra2 Meter) As directed cetirizine 10 mg PO DAILY 30 days epinephrine IM glipizide 10 mg PO BID ketotifen fumarate 0.025%(0.035%) 0 drps ophthalmic (eye) lancets (Comfort EZ Lancets) As directed metformin ER (Glucophage XR) 500 mg PO QPM [One touch test strips As directed] simethicone (Gas Relief (simethicone)) 125 mg PO TID-QID PRN terazosin 2 mg (2 x 1 mg) PO BEDTIME 90 days tirzepatide (Mounjaro) 10 mg (0.5 mL) subcut QWEEK valacyclovir 500 mg PO BID [vaniqua 11.5 % cram As directed] HPI Comments Details: Patient is a 54-year-old female with a significant past medical history of uncontrolled type 2 diabetes, obesity, GERD, hyperlipidemia presenting today for consultation regarding her diabetes. Patient last saw ADRIEN Stewart on 10/04/24 Endo-she was diagnosed with diabetes in 2013. She has been on insulin in the past but refuses to take this anymore. She has been off of this for a couple years. She is currently on Mounjaro 10 mg and glipizide 10 mg twice a day. Metformin 500 mg QD Unfortunately, patient did not bring log book, sensor or glucometer follow-up visit Hypoglycemia:No Tolerated humalog in the past and tresiba but refuses to take this. She says that she will not do daily insulin injections. In the past she did so many that she would end up with little abscesses/cyst. That she does not like it and will not do this. In the past she has tried Trulicity but it caused abdominal discomfort, metformin caused GI upset, Toujeo caused dizziness, actos causes GI upset. Jardiance was causing frequent yeast infections. Recently we tried Actos but has not been taking this as she does not tolerate it. States that it makes her sick Last eye exam:last week [facility] Medical History (Updated 08/26/24 @ 10:29 by Kirt Chow MD) Diabetic neuropathy Migraine Peripheral neuropathy Insomnia ASCUS with positive high risk HPV cervical Chronic idiopathic constipation Epistaxis Overflow incontinence of urine manager intermediate (current) use of insulin Obesity due to excess calories DM2 (diabetes mellitus, type 2) Urge urinary incontinence Lumbar pain Mild recurrent major depression Obesity (BMI 30-39.9) Hot flashes Pterygium of both eyes Depression with anxiety Daytime sleepiness GERD (gastroesophageal reflux disease) Polyarthralgia Left hand pain Obese Pure hypercholesterolemia Diabetes mellitus Surgical History History of biopsy Cataract History of ectopic Family History Father Diabetes Hypertension Mother Diabetes Hypertension Family/Other FH: mental illness Brother No problems noted. Sister No problems noted. Social History Housing: Apartment Alcohol intake: current Alcohol intake frequency: holidays/special occasions only Alcohol type: wine Patient Tobacco Use Status: Never used Tobacco e-Cigarette/Vaping Use: Never Used Second Hand Smoke Exposure: No service: No Current occupational status: unemployed Cognitive needs: No Hearing needs: No Vision needs: No Female Reproductive History Menstrual Age of Menarche: 10 Physical Exam Absence of Cushingoid features. Absence of acromegalic features. Neck exam reveals nl size thyroid about 15 gms. No thyroid nodules palpable. No carotid bruits present. Lungs CTA. Heart S1 S2, Reg R/R. No M/R/ G. Skin exam reveals absence of vitiligo or acanthosis nigricans. Abdominal exam reveals Soft NT/ND with NA BS. No organomegaly present. Neck Other: . Extrem Other: Visual exam of foot performed. No ulcerations or open lesions. No onchomycosis, no callouses.Pulses 2 + distally Sensation intact to monofilament exam. Vibratory sensation sensed is intact with 128 Hz tuning fork Results AMB Hemoglobin A1c AMB Hemoglobin A1c 11.4 % Last Edit by VERNA Carr on 11/04/24 08:56 Results Reviewed Results Reviewed: Laboratory Last Values Glucose (Clinic) 307 mg/dL (60-115) H 11/04/24 08:43 Assessment & Plan Assessment & Plan (1) Uncontrolled diabetes mellitus with hyperglycemia: Comment: Patient cites being on multiple medications. She also says she loves to eat sweet things and watch TV with her mother and does not go walking; 04/05/2024 patient says she has stopped her insulin and does not want to take it anymore..... Code(s): E11.65 - Type 2 diabetes mellitus with hyperglycemia Category: Medical Qualifiers: Diabetes mellitus type: type 2 Qualified Code(s): E11.65 - Type 2 diabetes mellitus with hyperglycemia Plan: This is a 54-year-old female with a history of type 2 diabetes being treated with glipizide, metformin and Mounjaro with poor glycemic control and known complications namely neuropathy. Plan is to talk to the patient about we checking her blood sugars pre and post meals or use of a glucose sensor which may not be covered by insurance. We will also explained the necessity of taking insulin if glycemic control is not obtained. Went over the correlation extensively with the help of an delicatessen store manager of poor glycemic control to development and progression of complications. After an extensive conversation with the patient with the help of an delicatessen store manager, the patient is again refusing any further intervention for the diabetes and will not check her blood sugars. At this point, there was no need to have the patient follow up with the endocrinology. She can follow up with the primary care. If she decides she would like further intervention and or we will check her point of cares, we can schedule follow up visit with endocrinology and have her see the staff development educator as well (2) Pure hypercholesterolemia: Code(s): E78.00 - Pure hypercholesterolemia, unspecified Category: Medical Plan: LDL cholesterol above goal not on statin We will talk to the patient about initiating a statin and explained the correlation of poor cholesterol control to development of cardiac stroke complications via help with delicatessen store manager. However this point, patient is refusing any statin treatment and referred back to her primary care provider Orders: Orders AMB Hemoglobin A1c Today E11.65 - Type 2 diabetes mellitus with hyperglycemia Coding Level of Care Code Est Pt Level 4 (75604) Diagnoses Uncontrolled type 2 diabetes mellitus with hyperglycemia E11.65 Diabetes mellitus type: type 2 Pure hypercholesterolemia E78.00
[2024-11-04 08:36] VITALS: BP 112/60; PULSE 79; O2SAT 97; BMI 30.3
[2024-11-04 08:49] LABS: Glucose, Whole Blood 307 mg/dL (60-115)
--- OUTSIDE RECORDS SUMMARY | 2024-11-04 09:44 | XMS_ITS | Clinical Summary ---
Author Organization [facility] Address [address] [place] [address] Care Team Providers Care Oil Well Fishing Tool Technician Name Role Phone Unavailable Primary Care Provider [...] Blood Sugar Contro l Test (HGBA1C) 01/28/2022 Depression Screening 02/14/2024 COVID-19 Vaccine ( - 2023-2 5 season) 2024 Influenza Vaccine (#1) 2024 3, 12/16/2011 Breast [...] PM EST Narrative 03/06/2023 2:23 PM EST [facility] Diagnostic Imaging Department [address] [place], [place] [id number] Patient: LIN MYERS./Age/Sex: 1970 - 52 - F Unit#: [id number] Location/Status: SPDIMAM/REG CLI Mnemonic/Ordering Site: DIGSC/SPMAM Ordering Physician: GODDARD,JAYLIN CNM Vanessa Screening Digital - 03/06/23 - 1344 Report Status:Signed EXAM: [facility] Screening Digital EXAM DATE AND TIME: 03/06/2023 1:45 PM HISTORY: Annual screening COMPARISON: Multiple exams dating back to 2007 TECHNIQUE: Bilateral digital breast tomosynthesis was performed in the CC and MLO projections. Computer aided detection with [employer] 3D 3.1 was employed. TISSUE DENSITY: b. [...] Procedure Note Natali Bailon MD - 10/02/2023 [facility] Diagnostic Imaging Department [address] [place] [address] Patient: LNI MYERS D.O.B./Age/Sex: 1970 - 52 - F Unit#: [id number] Location/Status: SPDIMAM/REG CLI Mnemonic/Ordering Site: [facility] Ordering Physician: JAYLIN GODDARD CNM Vanessa Screening Digital - 03/06/23 - [id number] Report Status:Signed EXAM: Vanessa Screening Digital EXAM DATE AND TIME: 03/06/2023 1:45 PM HISTORY: Annual screening COMPARISON: Multiple exams dating back to 2007 TECHNIQUE: Bilateral digital [facility]. Computer aided detection with [employer] AI 3D 3.1was employed. TISSUE DENSITY: b. [...] RESULTING AGENCY - 05/08/2017 10:39 AM EDT [id number] RESULTS OF GEN-PROBE APTIMA COMBO 2 ASSAY CHLAMYDIA: NEGATIVE N. GONORRHOEAE: NEGATIVE DM OJEDA M.D., PATHOLOGIST (CASE ELECTRONICALLY SIGNED 05 08 2017) CLINICAL INFORMATION: Z12.4, HORMONES. Z01.419 ENCOUNTER FOR GYNECOLOGICAL EXAMINATION (GENERAL) (ROUTINE) WITHOUT ABNORMAL FINDINGS SOURCE: THINPREP PAP FOR CT/GC GROSS DESCRIPTION: THINPREP VIAL RECEIVED. ELAINE PAYNE/#[phone]/ Elaine Watson CNM LAB CYTOLOGY ORDERABLES Final Result HISTORICAL TESTING LAB RESULTING AGENCY from Last 3 Months or Most Recently Relevant to Health Maintenance
--- OUTSIDE RECORDS SUMMARY | 2024-11-04 09:44 | XMS_ITS | Clinical Summary ---
Author Organization [employer] Address [address] [place] [address] Care Team Providers Care Hr Coordinator Name Role Phone Unavailable Primary Care Provider Unavailabl e Encounters Date Type Department Care Team Description 09/09/2024 Telephone [facility] [address] [place] [address] [phone] Gume Ronquillo MD 09/06/2024 Telephone [facility] [address] [place] [phone] Gume Ronquillo MD from Last 3 Months Social History Tobacco Use Types Packs/Day Years Used Date Smoking Tobacco: Never Assessed Comments Unknown Sex and Gender Information Value Date Recorded Sex Assigned at Female 12/13/2021 10:19 AM EDT Legal Sex Female 10:19 AM EDT Gender Identity Female 12/13/2021 10:19 AM EDT Sexual Orientation Don't know 12/13/2021 10 :19 AM EDT Plan of Treatment Upcoming Encounters Date Type Department Care Team (Late st Contact Info) Description 12/10/2024 10:15 AM EDT Office Visit [facility] [address] [place] [phone] Digna Bhakta MD [address] [place] [address] Health Maintenance Due Date Last Done Comments CT Colonography 1968 Colonoscopy 1968 Colorectal Cancer Screening 1968 Depression Screening 1968 FIT DNA/Cologuard 1968 FIT 1968 FOBT 1970 HIV Screening 1970 SDOH Screening 1970 Sigmoidoscopy 1968 Disability Screening 1968 Alcohol/Substance Use Screening 1980 Tobacco Screening 1980 Hepatitis C Screening 1986 Hepatitis B Vaccines (1 of 3 - 19+ 3-dose series) 07/19/1987 Pap Smear 1989 Cervical Cancer Screening 1998 HPV/Cotest 1998 Pneumococcal Vaccine: 50+ Years (2 of 2 - PCV) 01/29/2019 01/29/2018, 10/21/2016, 10/13/2014 Mammogram 05/30/2019 05/29/2017 DTaP/Tdap/Td Vaccines (2 - Td or Tdap) 03/24/2021 03/24/2011 COVID-19 Vaccine (3 - season) 2024 02/20/2021, 06/18/2020 Influenza Vaccine (#1) 2024 0, 01/29/2018, 09/29/2015, Additional history exists RSV Patients and Patients Aged 60 years or older (1 - 1-dose 75+ series) 07/19/2043 Zoster Vaccines Completed 09/16/2021, 07/09/2021 HIB Vaccines Aged Out No longer eligi [...] Most Recently Relevant to Health Maintenance [place] [address]
== END 2024-11-04 11:24 | disposition home or self-care (01) ==
LOC: HO.ENCR 08:28
PROVIDERS: PCP Internal Medicine; Visit Provider Internal Medicine Endocrinology, Diabetes & Metabolism
DX: E11.65 Type 2 diabetes mellitus with hyperglycemia (principal); E78.00 Pure hypercholesterolemia, unspecified
CPT/HCPCS: 99214

== ENCOUNTER → 2024-11-04 08:28 | Outpatient (BNVA) | payer OTHER, SELFPAY | PROVIDERS: PCP Internal Medicine; Visit Provider Internal Medicine Endocrinology, Diabetes & Metabolism | DX: E11.65 Type 2 diabetes mellitus with hyperglycemia (principal); E78.00 Pure hypercholesterolemia, unspecified | CPT/HCPCS: 82947; 83036; 99212 ==

== ENCOUNTER 2025-01-16 10:04 | Outpatient (REF) | payer OTHER, SELFPAY ==
[2025-01-16 11:14] LABS: MANUAL DIFF FLAG NO
[2025-01-16 11:19] LABS: Hematocrit 47.3 % (37.0-47.0); Hemoglobin 15.9 g/dl (12.0-16.0); Imm Gran Abs Auto 0.02 X10*3/uL (0.00-0.03); Imm Gran Pct Auto 0.3 % (0.0-0.4); Lymphocytes Absolute Auto 2.7 X10*3/uL (1.2-4.9); Mean Corpuscular HGB Conc 33.6 g/dl (31.0-35.0); Mean Corpuscular Hemoglobin 30.3 pg (27.0-33.0); Mean Corpuscular Volume 90.3 fL (80.0-98.0); NRBC Abs Auto 0.000 X10*3/uL (0.0-0.012); NRBC Pct Auto 0.0 /100WBC (0.0-0.2); Platelet Count 356 X10*3/uL (160-400); Red Blood Count 5.24 X10*6/uL (4.20-5.50); White Blood Count 7.2 X10*3/uL (4.8-10.8)
--- OUTSIDE RECORDS SUMMARY | 2025-01-16 11:56 | XMS_ITS | Clinical Summary ---
Author Organization [employer] Address [address] [facility] [address] [place] [address] Care Team Providers Care Avionics Systems Technician Name Role Phone Digna Bhakta MD Primary Care Provide r Allergies No known active allergies Medications Tirzepatide (Mounjaro) 12.5 MG/0.5ML solution auto-injectorIn dications:Type 2 diabetes mellitus with hyperglycemia, without long-term current use of insulin (HCC) Inject 12.5 mg under the skin 1 (one) time per week. 2 mL 2 01/07/2025 2:41 PM EST Active glipiZIDE XL (Glucotrol XL) 10 MG 24 hr tabletIndicatio ns:Type 2 diabetes mellitus with hyperglycemia, without long-term current use of insulin (HCC) Take 1 tablet (10 mg) by mouth Once per day. Do not crush, chew, or split. 30 tablet 11 01/07/2025 2:41 PM EST 12/11/19 26 Active valACYclovir (Valtrex) 500 MG tabletIndicatio ns:HSV (herpes simplex virus) anogenital infection Take 1 tablet (500 mg) by mouth Once per day. 30 tablet 5 01/07/2025 2:41 PM EST 5 12/11/19 26 Active empagliflozin (Jardiance) 10 MGIndications:T ype 2 diabetes mellitus with hyperglycemia, without long-term current use of insulin (HCC) Take 1 tablet (10 mg) by mouth Once per day. 30 tablet 2 01/07/2025 2:41 PM EST 5 12/11/19 26 Active montelukast (Singulair) 10 MG tablet Take 10 mg by mouth at bedtime. Active Bisacodyl EC 5 MG EC tablet Take 10 mg by mouth at bedtime. Active GAS RELIEF 125 MG capsule Take 125 mg by mouth if needed in the morning, at noon, in the evening, and at bedtime. Active fluconazole (Diflucan) 150 MG tablet TAKE ONE TABLET BY MOUTH ONCE, MAY REPEAT DOSE IN 72 HOURS Active cetirizine (ZyrTEC) 10 MG tablet Take 10 mg by mouth Once per day. Active Xiidra 5 % solution Administer 1 drop into both eyes 2 times daily. Active Miconazole 7 2 % vaginal cream Insert 1 applicator into the vagina at bedtime. Active terazosin (Hytrin) 1 MG capsule Take 2 mg by mouth at bedtime. Active Active Problems Problem Noted Date Diagnosed Date Chronic female pelvic pain 12/10/2024 Diabetes mellitus 12/10/2024 Endometriosis 12/10/2024 Hirsutism 12/10/2024 HSV (herpes simplex virus) anogenital infection 12/10/2024 Infertility, female, secondary 12/10/2024 Poor historian 12/10/2024 Uses intrauterine device for control 12/10 Encounter for screening mamm ogram for malignant neoplasm of breast 12/10/2024 Cervical cancer screening 12/10/2024 LUPIS (obstructive sleep apnea) 12/10/2024 Encounters Date Type Department Care Team Description 01/16/2025 Travel 12/26/2024 Orders Only [facility] [address] [place] [phone] Digna Bhakta MD Type 2 diabetes mellitus with hyperglycemia, without long-term current use of insulin (HCC) (Primary Dx) 12/26/2024 Telephone [facility] [address] [place] [address] Cecilia Arroyo, PharmD 12/10/2024 10:15 AM EDT Office Visit [facility] [address] [place] [address] Digna Bhakta MD LUPIS (obstructive sleep apnea) (Primary Dx); Encounter for screening mammogram for malignant neoplasm of breast; Type 2 diabetes mellitus with hyperglycemia, without long-term current use of insulin (HCC); Cervical cancer screening; HSV (herpes simplex virus) anogenital infection 12/10/2024 Travel 12/09/2024 Telephone [facility] [address] [place] [address] Digna Bhakta MD Chart Prep 12/03/2024 Patient Outreach [facility] [address] [place], [place] [phone] Digna Bhakta MD Pre-visit Planning (SDOH negative, Tobacco screening negative. ) from Last 3 Months Immunizations Immunization Administration Dates Next Due Influenza injectable quadriv alent IIV4 with preservative 01/29/2018 Influenza injectable quadriv alent preservative free 12/17/2019,09/29/2015 Influenza, IIV3, injectable 11/30/2012, 2 Influenza, seasonal, injecta ble, preservative free 10/13/2014 Pneumococcal Polysaccharide PPSV23 01/29/2018,,10/13/2014 Tdap 03/24/2011 Zoster, Recombinant 09/16/2021,07/09/2021 Social History Tobacco Use Types Packs/Day Years Used Date Smoking Tobacco: Never Smokeless Tobacco: Never Tobacco Cessation:Counseling Given: Not Answered Housing Stability Answer Date Recorded What is your housing situation today? I have shailaterrell brito 12/03/[address] you li ve. Do you have problems with any of the following? None of the above 12/03/2024 Food Insecurity Answer Date Recorded Within the past 12 months, y ou worried that your food would run out before you got money to buy more: Never True 12/03/2024 Within the past 12 months,th e food you bought just didn't last and you didn't have enough money to get more: Never True Transportation Answer Date Recorded In the past 12 months, has l ack of transportation kept you from medical appts, meetings, work or from getting things needed for daily living? No 12/03/2024 Utilities Answer Date Recorded In the past 12 months, has t he [employer], [employer], oil or water company threatened to shut off services in your home? No 12/03/2024 Internet Access Answer Date Recorded Internet Access Q1 Yes 12/03/2024 Internet Access Q2 Not on file 12/03/2024 Comments Unknown Sex and Gender Information Value Date Recorded Sex Assigned at Female 12/13/2021 10:19 AM EDT Legal Sex Female 10:19 AM EDT Gender Identity Female 12/13/2021 10:19 AM EDT Sexual Orientation Don't know 12/13/2021 10 :19 AM EDT Last Filed Vital Signs Vital Sign Reading Time Taken Comments Blood Pressure 122/66 01/16/2025 9:13 AM EST Pulse 84 01/16/2025 9:13 AM EST Temperature 34.4 C (94 F) 12/10/2024 10:14 AM EDT Respiratory Rate 17 12/10/2024 10:14 AM EDT Oxygen Saturation 99% 12/10/2024 10:14 AM EDT Inhaled Oxygen Concentration - - Weight 74.8 kg (165 lb) 12/10/2024 10:14 AM EDT Height 157.5 cm (5' 2 ) 12/10/2024 10:14 AM EDT Body Mass Index 30.18 12/10/2024 10:14 AM EDT Plan of Treatment Upcoming Encounters Date Type Department Care Team (Late st Contact Info) Description 02/19/2025 9:00 AM EST Medication Management [facility] [address] [place] [phone] Maikel Lam, PharmD [address] [place] [phone] 03/05/2025 10:15 AM EST Office Visit [facility] [address] [place] [phone] Digna Bhakta MD [address] [place] [address] Health Maintenance Due Date Last Done Comments CT Colonography 1968 Colonoscopy 1968 Colorectal Cancer Screening 1968 Depression Screening 1968 FIT DNA/Cologuard 1968 FIT 1968 FOBT 1968 HIV Screening 1968 Lipid Panel 1968 Sigmoidoscopy 1968 Disability Screening 1968 Diabetes: Foot Exam 1978 Eye Exam 1978 Alcohol/Substance Use Screening 1980 Hepatitis C Screening 1986 Diabetes: Urine Protein Screening 07/19/1987 Hepatitis B Vaccines (1 of 3 - 19+ 3-dose series) 07/19/1987 Pap Smear 1989 Cervical Cancer Screening 1998 HPV/Cotest 1998 RSV Patients and Patients Aged 60 years or older (1 - Risk 50-74 years 1-dose series) 2018 Pneumococcal Vaccine: 50+ Years (2 of 2 - PCV) 01/29/2019 01/29/2018, 10/21/2016, 10/13/2014 Mammogram 05/30/2019 05/29/2017 DTaP/Tdap/Td Vaccines (2 - Td or Tdap) 03/24/2021 03/24/2011 COVID-19 Vaccine ( season) 2024 02/20/2021, 06/18/2020, 05/28/2020 Influenza Vaccine (#1) 2024 , 01/29/2018, 09/29/2015, Additional history exists Diabetes: Hemoglobin A1C 03/12/2025 12/10/2024 SDOH Screening 12/03/2025 12/03/2024 Tobacco Screening 12/10/2025 12/10/2024 Zoster Vaccines Completed 09/16/2021, 07/09/2021 HIB Vaccines [...] on patient's age to complete this topic Goals Goal Patient Goal Type Associated Problems Recent Progress Patient-Stated? Author Help patients manage their type 2 diabetes Care Plan Help patients manage their type 2 diabetes No Digna Bhakta MD Patient has chronic kidney disease Care Plan Patient has chronic kidney disease No Digna Bhakta MD Patient has chronic kidney disease Care Plan Patient has chronic kidney disease No Maikel Lam PharmD Weekly blood pressure task Care Plan Weekly blood pressure task No Maikel Lam PharmD Procedures Procedure Name Priority Date/Time Associated Diagnosis Comments CBC WITH AUTO DIFFERENTIAL Routine 01/16/2025 10:10 AM EST Type 2 diabetes mellitus with hyperglycemia, without long-term current use of insulin (HCC) POCT GLYCATED HEMOGLOBIN, TOTAL Routine 12/10/2024 10:39 AM EDT Type 2 diabetes mellitus with hyperglycemia, without long-term current use of insulin (HCC) POCT GLUCOSE Routine 12/10/2024 10:39 AM EDT Type 2 diabetes mellitus with hyperglycemia, without long-term current use of insulin (HCC) BI MAMMOGRAM SCREENING BILATERAL Routine 05/29/2017 8:08 AM EDT from Last 3 Months or Most Recently Relevant to Health Maintenance Results * (ABNORMAL) CBC auto differential (01/16/2025 10:10 AM EST) White Blood Count 7.2 4.8 - 10.8 X10*3/uL [facility] Red Blood Count 5.24 4.20 - 5.50 X10*6/uL [facility] Hemoglobin 15.9 12.0 - 16.0 g/dl [facility] Hematocrit 47.3(H) 37.0 - 47.0 % [facility] Mean Corpuscular Volume 90.3 80.0 - 98.0 fL [facility] Mean Corpuscular Hemoglobin 30.3 27.0 - 33.0 pg [facility] Mean Corpuscular HGB Conc 33.6 31.0 - 35.0 g/dl [facility] Red Cell Distribution Width 12.5 11.0 - 16.0 % [facility] Platelet Count 356 160 - 400 X10*3/uL [facility] Mean Platelet Volume 10.0 9.4 - 12.3 fL [facility] Neutrophils Percent Auto 54.7 45 - 73 % [facility] Imm Gran Pct Auto 0.3 0.0 - 0.4 % [facility] Lymphocytes Percent Auto 37.0 20 - 40 % [facility] Monocytes Percent Auto 5.6 2 - 11 % [facility] Eosinophils Percent Auto 2.0 0 - 4 % [facility] Basophils Percent Auto 0.4 0 - 2 % [facility] NRBC Pct Auto 0.0 0.0 - 0.2 /100WBC [facility] Neutrophils Absolute Auto 3.9 2.0 - 8.3 x10*3/uL [facility] Imm Gran Abs Auto 0.02 0.00 - 0.03 X10*3/uL [facility] Lymphocytes Absolute Auto 2.7 1.2 - 4.9 X10*3/uL [facility] Monocytes Absolute Auto 0.4 0.1 - 1.2 X10*3/uL [facility] Eosinophils Absolute Auto 0.1 0.0 - 0.4 X10*3/uL [facility] Basophils Absolute Auto 0.0 0.0 - 0.2 X10*3/uL [facility] NRBC Abs Auto 0.000 0.0 - 0.012 X10*3/uL [facility] Blood Venous blood specimen / Unknown 01/16/2025 10:10 AM EST 01/16/2025 11:11 AM EST us Digna Sullivan MD LAB BLOOD ORDERABLES Final Result [facility] [address] [place] [phone] * (ABNORMAL) POCT Hgb A1c (12/10/2024 10:39 AM EDT) Hemoglobin A1C 11.3(A) 4.0 - 5.7 % QC Media Lot # [id number] Lot# Expiration Date 51 Blood 12/10/2024 10:3 9 AM EDT us Digna Sullivan MD POINT OF CARE TEST EN TER/EDIT ORDERABLES Final Result * (ABNORMAL) POCT Glucose (12/10/2024 10:39 AM EDT) Pathologist [facility] [place] Glucose Blood, POC 425(A) 60 - 200 mg/dL QC Media Lot # [id number] Lot# Expiration Date [id number] Blood Capillary blood specimen / Unknown 12/10/2024 10:39 AM EDT Result Michelle Sullivan MD POINT OF CARE TEST EN TER/EDIT ORDERABLES Final Result * DIGITAL BILATERAL SCREEN 1 (05/29/2017 8:08 AM EDT) Anatomical Region Laterality Modality Breast Bilateral Mammography 05/29/2017 8:08 AM EDT Narrative 05/30/2017 4:45 PM EDT Refer to the Notes tab for result details [facility] Procedure: DIGITAL BILATERAL SCREEN 1 Procedure Note Provider, MD Yoly - 05/07/2022 Refer to the Notes tab for result details [facility] Procedure: DIGITAL BILATERAL SCREEN 1 Davian Murphy MD IMG BI PROCEDURES Final Result from Last 3 Months or Most Recently Relevant to Health Maintenance Additional Health Concerns Active Problems Noted Date Diagnosed Date Help patients manage their type 2 diabetes 12/26 Patient has chronic kidney disease 12/26/2024 Patient has chronic kidney disease 01/16/2025 Weekly blood pressure task 01/16/2025 Insurance [employer] < [address] [employer] [phone] Care Teams Avionics Systems Technician Relationship Specialty Start Date End Date Digna Bhakta MD [address] [place] [phone] PCP - General Internal Medicine 12/19/24
--- OUTSIDE RECORDS SUMMARY | 2025-01-16 11:56 | XMS_ITS | Clinical Summary ---
Author Organization [facility] Address [address] [place] [phone] Phone Care Team Providers Care Lab Support Tech Name Role Phone Unavailable Primary Care [...] Health Maintenance Due Date Last Done Comments Colorectal Cancer Screening: Colonoscopy 1968 Diabetes: Annual GFR (Glomerular Filtration Rate) 1968 Diabetes: Annual Foot Exam 1978 Diabetes: Annual Retina Eye Exam 1978 Hepatitis A Vaccines (1 of 2 - Risk 2-dose series) 07/19/1987 Hepatitis B Vaccines (1 of 3 - 19+ 3-dose series) 07/19/1987 RSV Immunization Adult Patients (1 - Risk 50-74 years 1-dose series) 2018 Pneumococcal Vaccine: 50+ Years (2 of 2 - PCV) 01/29/2019 01/29/2018, 10/21/2016, 10/13/2014 Cervical Cancer Screening: Pap Smear 05/04/2020 05/04/2017, 05/04/2017 DTaP,Tdap,and Td Vaccines (2 - Td or Tdap) 03/24/2021 03/24/2011 Cholesterol Screening (Lipid Panel) 01/16/2022 HIV Screening 01/16/2022 Hepatitis C Screening 01/16/2022 Social Influencers of Health Screening 01/16/2022 Diabetes: Annual Urine Albumin-Creatinine Ratio (uACR) 01/28/2022 Depression Screening 02/14/2024 COVID-19 Vaccine ( season) 2024 06/18/2020, 05/28/2020 Influenza Vaccine (#1) 2024 , 01/29/2018, 09/29/2015, Additional history exists Breast Cancer Screening 03/06/2025 03/06/2023, 05/29 Diabetes: Blood Sugar Control Test (HGBA1C) 06/10/2025 12/10/2024 Zoster Vaccines Completed 09/16/2021, 07/09/2021 HIB [...] 20 months Aged Out No longer eligible based on patient's age to complete this topic Varicella Vaccines Aged Out No longer eligible based on patient's age to complete this topic Procedures Procedure Name Priority Date/Time Associated Diagnosis Comments [facility] SCREENING DIGITAL Routine 03/06/2023 2:23 PM EST Encounter for screening mammogram for malignant neoplasm of breast PAP SMEAR Routine 05/04/2017 from Last 3 Months or Most Recently Relevant to Health Maintenance Results * VANESSA SCREENING DIGITAL (03/06/2023 2:23 PM EST) Anatomical Region Laterality Modality Mammography 03/06/2023 1:27 PM EST Narrative 03/06/2023 2:23 PM EST [facility] Diagnostic Imaging Department [address] [place] [phone] Patient: LIN NUNES/Age/Sex: 1970 - 52 - F Unit#: [id number] Location/Status: SPDIMAM/REG CLI Mnemonic/Ordering Site: [facility] Ordering Physician: JAYLIN QUINONEZ CNM Vanessa Screening Digital - 03/06/23 - 1344 Report Status:Signed EXAM: Vanessa Screening Digital EXAM DATE AND TIME: 03/06/2023 1:45 PM HISTORY: Annual screening COMPARISON: Multiple exams dating back to 2007 TECHNIQUE: Bilateral digital breast tomosynthesis was performed in the CC and MLO projections. Computer aided detection with NGDATA 3D 3.1 was employed. TISSUE DENSITY: b. [...] Procedure Note Natali Bailon MD - 10/02/2023 [facility] Diagnostic Imaging Department [address] [place] [address] [phone] Patient: LIN NUNES/Age/Sex: 1970 - 52 - F Unit#: [id number] Location/Status: SPDIMAM/REG CLI Mnemonic/Ordering Site: [facility] Ordering Physician: JAYLIN QUINONEZ CNM Vanessa Screening Digital - 03/06/23 - 1344 Report Status:Signed EXAM: Vanessa Screening Digital EXAM DATE AND TIME: 03/06/2023 1:45 PM HISTORY: Annual screening COMPARISON: Multiple exams dating back to 2007 TECHNIQUE: Bilateral digital breast tomosynthesis was performed in the CCand MLO projections. Computer aided detection with NGDATA 3D 3.1was employed. TISSUE DENSITY: b. There [...] Date/Time: 03/06/23 1421 Sign date/Time: 03/06/23 1423 Jaylin Quinonez CNM IMG BI PROCEDURES Final Resul t * Pap smear (05/04/2017) 05/04/2017 Narrative HISTORICAL TESTING LAB RESULTING AGENCY - 05/08/2017 10:39 AM EDT [id number] RESULTS OF GEN-PROBE APTIMA COMBO 2 ASSAY CHLAMYDIA: NEGATIVE N. GONORRHOEAE: NEGATIVE DM OJEDA M.D., PATHOLOGIST (CASE ELECTRONICALLY SIGNED 05 08 2017) CLINICAL INFORMATION: Z12.4, HORMONES. Z01.419 ENCOUNTER FOR GYNECOLOGICAL EXAMINATION (GENERAL) (ROUTINE) WITHOUT ABNORMAL FINDINGS SOURCE: THINPREP PAP FOR CT/GC GROSS DESCRIPTION: THINPREP VIAL RECEIVED. PHYSICIANS EALINE WATSON/#[phone]/ Elaine Watson [facility] CYTOLOGY ORDERABLES Final Result HISTORICAL TESTING LAB RESULTING AGENCY from Last 3 Months or Most Recently Relevant to Health Maintenance Insurance Member Subscriber Plan / Payer (Ef fective 2023-Present) Name:LIN NUNES Relation to Subscriber:Self Name:Lin Nunes Payer ID:[id number] Group ID:[id number] Type:Not on file Address: [place] [address] [employer] [phone]
--- OUTSIDE RECORDS SUMMARY | 2025-01-16 11:56 | XMS_ITS | Encounter Summary ---
Author Organization [employer] Address [address] [facility] [address] [place] [address] Care Team Providers Care Milk Treater Name Role Phone Digna Bhakta MD Primary Care Provide r Encounter Details Date Type Department Care Team (Latest Contact Info) Description 01/16/2025 Travel Social History Tobacco Use Types Packs/Day Years Used Date Smoking Tobacco: Never Smokeless Tobacco: Never Housing Stability Answer Date Recorded What is your housing situation today? I have shaila brito 12/03/[address] you [...] the past 12 months, has t he electric, gas, oil or water company threatened to shut [...] Don't know 12/13/2021 10 :19 AM EDT documented as of this encounter Plan of Treatment Upcoming Encounters Date Type Department Care Team (Late st Contact Info) Description 02/19/2025 9:00 AM EST Medication Management [address] [address] Maikel Lam, [place] [address] [place] [phone] 03/05/2025 10:15 AM EST Office Visit [facility] [address] [place] [phone] Digna Bhakta MD [address] [place] [address] [phone] documented as of this encounter Goals Goal Patient Goal Type Associated Problems [...] blood pressure task No Maikel Lam PharmD documented as of this encounter Visit Diagnoses Not on filedocumented in this encounter Additional Health Concerns Active Problems Noted Date Diagnosed Date Help patients manage their type 2 diabetes 12/26 Patient has chronic kidney disease 12/26/2024 Patient has chronic kidney disease 01/16/2025 Weekly blood pressure task 01/16/2025 documented as of this encounter Care Teams Milk Treater Relationship Specialty Start Date End Date Digna Bhakta MD [address] [place] [phone] PCP - General Internal Medicine 12/19/24 documented as of this encounter
[2025-01-16 12:22] LABS: Microalbum/Creatinine Ratio Ur 17.0 ug/mg cr (<30)
[2025-01-16 14:34] LABS: Alanine Aminotransferase 59 U/L (0-31); Albumin Level 4.6 g/dL (3.5-5.0); Alkaline Phosphatase 86 U/L (39-117); Anion Gap 12 (12-20); Aspartate Amino Transferase 36 U/L (5-31); Blood Urea Nitrogen 15 mg/dL (9-16); Calcium 9.6 mg/dL (8.4-10.2); Carbon Dioxide 26 mmol/L (22-29); Chloride 104 mmol/L (96-108); Cholesterol 241 mg/dL (<200); Cholesterol 249 mg/dL (<200); Estimated Glomerular Filt Rate > 60; HDL Cholesterol 39 mg/dL (>40); Potassium 4.2 mmol/L (3.3-5.1); Sodium 138 mmol/L (135-145); Total Protein 7.7 g/dL (6.5-8.0); Triglycerides 222 mg/dL (<150); Triglycerides 227 mg/dL (<150)
[2025-01-17 05:12] LABS: HIV Num 1 0.06 S/CO (0.00-0.99); ~HepC Num1 0.10 S/CO (0.00-0.79); ~Hepatitis C Antibody Nonreactive (Nonreactive)
== END 2025-01-16 10:05 | disposition home or self-care (01) ==
LOC: HO.HHCL 10:04
PROVIDERS: Internal Medicine; PCP Internal Medicine; Visit Provider Internal Medicine
DX: Z11.4 Encounter for screening for human immunodeficiency virus [HIV] (principal); Z11.59 Encounter for screening for other viral diseases; E11.65 Type 2 diabetes mellitus with hyperglycemia; E55.9 Vitamin D deficiency, unspecified; E78.5 Hyperlipidemia, unspecified; R79.89 Other specified abnormal findings of blood chemistry; R80.9 Proteinuria, unspecified
CPT/HCPCS: 36415; 80053; 80061; 82043; 82248; 82306; 82570; 84443; 85025; 86803; 87389